=== PATIENT | male | born 1945 | race Caucasian/White ===

== ENCOUNTER 2020-07-10 15:52 | Inpatient (IN) ==
--- NOTE | 2020-07-10 16:21 | DR.FEVERAD ---
HPI Time seen Time Seen by Provider: 07/10/20 16:18 PCP Primary Care Physician: BREANA HAIR HPI Comment HPI Comment: PATIENT HAVE HISTORY OF ANEMIA AND IS ON IRON SUPPLEMENT WITH LAST HEMOGLOBBIN RUNNING AT 10. DENIES MELENA OR HEMATEMESIS. Complaints/Symptoms Chief Complaint Doctor Comments: PROGRESSIVE INTERMITTENT FEVER TIMES ONE WEEK. NOW WITH GENERALIZED WEAKNESS AND IMBALANCE. PATIENT IS PALE AND DIZZY. PATIENT IS HAVING GENERALIZED PAIN AND ABDOMINAL PAIN. PATIENT SAID GENERALIZED AND ABD ACHING IS 8/10. Chief Complaint:: PT C/O FEVER( COMING AND GOING FOR MONTHS ) 103.6 PTS FAMILY STATES FEVER WAS 101.1 AND IT HAS INCREASED TO 10.3.6.. N/V WEAKNESS AND UNSTEADY ,BR Self Treatment fo Chief Complaint: PTS STATES " HE LOOKS PALE ",BR COVID-19 Coronavirus risk:travel/contact w/high risk person: No Has patient experienced Coronavirus symptoms: No Nurses notes reviewed Nurses Notes Review: Yes Source History Provided: Patient Mode of Arrival Mode of Arrival: Ambulatory Timing Onset of Chief Complaint: 07/09/20 Came on: Gradually Duration Duration: Intermittent Duration: Weeks Severity Fever Severity/Quality: greater than 102 F Context Recent: None Symptoms: Fever History of: None Modifying factors Modifying factors: Tylenol Associated signs and symptoms Associated signs and symptoms: Weakness PMH PMH Past Medical History: Yes Past Medical History: Arthritis, Dyslipidemia, Gout and Hypertension Past Surgical History: Yes Surgical History: Angioplasty/Stents Past Surgical History Comment: KNEE SURGERY , JAW SURGERY BR Family History History of Family Medical Conditions: Yes Family Medical History: Diabetes Mellitus and Hypertension Social History Does patient currently use any type of tobacco product: No Have you used tobacco products in the last 12 months: No Type of Tobacco Use: None Does any household member use tobacco: No Alcohol Use: None Do you use any recreational Drugs:: No Lives With: Family Lives Where: Home Travel Risk Coronavirus risk:travel/contact w/high risk person: No Has patient experienced Coronavirus symptoms: No Infectious screening In the last 2 months have you had wt loss of >10#?: NO Have you had fever, night sweats or hemotysis?: No Have you traveled outside the country in the last 6 months?: No Isolation: Standard ROS Review of Systems Constitutional: See HPI, Fever, Weakness and Fatigue Eyes: No Symptoms Reported and See HPI ENTM: No Symptoms Reported and See HPI; negative Nose Discharge and Nose Congestion Respiratoy: No Symptoms Reported, See HPI and Short of Breath (ON EXERTION.); negative Moist Cough and Wheezing Cardiovascular: No Symptoms Reported and See HPI; negative Chest Pain and Palpitations Gastrointestinal/Abdominal: See HPI, Abdominal Pain, Diarrhea and Nausea Genitourinary: No Symptoms Reported and See HPI; negative Dysuria, Frequency and Hematuria Neurological: See HPI and Weakness; negative Headache and Dizziness Musculoskeletal: See HPI and Muscle Pain; negative Back Pain Integumentary: See HPI and Dryness; negative Change in Color, Rash and Juandice Hematologic/Lymphatic: No Symptoms Reported and See HPI; negative Easy Bruising and Swollen Glands Endocrine: No Symptoms Reported and See HPI; negative Increased Thirst and Increased Urine Psychiatric: No Symptoms Reported and See HPI All Other Systems: Reviewed and Negative PE Vital Signs Vitals: Temperature 98.9 F Pulse Rate [Left] 86 Pulse Rate 86 Respiratory Rate 20 Blood Pressure [Left Arm] 145/67 Blood Pressure 136/63 O2 Sat by Pulse Oximetry 96 General Limitations: No Limitations General Appearance: Alert and In No Apparent Distress Head Head Exam: Normal Inspection and Atraumatic Eyes Eye exam: Normal Appearance, PERRL and Conjunctival Injection; negative Scleral Icterus ENT ENT Exam: Normal Exam, Normal Oropharynx, Normal External Ear Exam and TM's Normal Bilaterally External Ear Exam: Normal External Inspection; negative Mastoid Tenderness TM/Canal Exam: Bilateral: Normal Nose Exam: Normal Nose Exam Mouth Exam: negative Lip Swelling and Tongue Swelling Teeth Exam: Normal Inspection and Dental Caries; negative Dental Tenderness # and Gingival Swelling Throat Exam: negative Tonsillar Erythema, Tonsillomegaly and Tonsillar Exudate Neck Neck Exam: Normal Inspection and Trachea Midline; negative Tenderness and Lymphadenopathy Respiratory Respiratory Exam: Normal Lung Sounds Bilat; negative Accessory Muscle Use, Chest Wall Tenderness and Respiratory Distress Respiratory Exam: Bilateral: Rhonchi and Lower: Rhonchi Cardiovascular Cardiovascular Exam: Regular Rate, Normal Rhythm and Normal Heart Sounds; negative Systolic Murmur and Diastolic Murmur Abdominal Exam Abdominal Exam: Normal Bowel Sounds, Soft and Tenderness Abdominal Tenderness: Diffuse and Moderate Extremities Extremities Exam: Normal Inspection and Normal Capillary Refill; negative Tenderness, Edema and Calf Tenderness Back Back Exam: Normal Inspection; negative Tenderness, (R) CVA Tenderness and (L) CVA Tenderness Neurologic Neurological Exam: Alert and Oriented X3; negative Motor Sensory Deficit Psychiatric Psychiatric Exam: Normal Affect and Normal Mood Skin Skin Exam: Warm, Dry, Intact and Normal Color MDM Differential Diagnosis Differential Diagnosis: Dehydration (GENERALIZED WEAKNESS, ANEMIA.), Electrolyte disorder, Pneumonia, Pyelonephritis and UTI COURSE Treatment Treatment: SEE ORDERS. Consultation Consultation Comments: DISCUSSED PATIENT WITH DR. WEBB. HE WILL ADMIT PATIENT. Education/Counseling Education/Counseling: Patient Educated On: Diagnosis ROR Labs Reviewed Laboratory Results Reviewed?: Yes Result Diagrams: 07/14/20 09:10 07/14/20 09:10 Laboratory: 07/11/20 18:30 Stool Stool Culture - Final 07/11/20 18:30 Stool - Final 07/11/20 17:05 Urine,Clean Catch Urine Culture - Final 07/10/20 17:18 Blood Blood Culture - Preliminary 07/10/20 17:05 Blood Blood Culture - Preliminary WBC 3.2 X10^3/uL (3.6-10.0) L 07/12/20 05:35 RBC 2.20 X10^6/uL (4.7-6.0) L 07/12/20 05:35 Hgb 7.6 g/dL (13.5-18.0) L 07/12/20 05:35 Hct 21.7 % (42.0-54.0) L 07/12/20 05:35 MCV 98.3 fL (80.0-100.0) 07/12/20 05:35 MCH 34.5 pg (27.0-34.0) H 07/12/20 05:35 MCHC 35.1 g/dL (33.0-35.0) H 07/12/20 05:35 RDW 14.9 % (11.6-16.5) 07/12/20 05:35 Plt Count 68 X10^3/uL (150.0-450.0) L 07/12/20 05:35 Plt Count Comment Decreased (ADEQUATE) 07/12/20 05:35 MPV 7.4 fL (7.4-11.0) 07/12/20 05:35 Neut % (Auto) 54.4 % (42.0-75.0) 07/12/20 05:35 Lymph % (Auto) 19.2 % (21.0-51.0) L 07/12/20 05:35 Gregg % (Auto) 23.6 % (0.0-13.0) H 07/12/20 05:35 Eos % (Auto) 0.6 % (0.9-2.9) L 07/12/20 05:35 Baso % (Auto) 2.2 % (0.2-1.0) H 07/12/20 05:35 Neut # (Auto) 1.8 x10^3/uL (2.2-4.8) L 07/12/20 05:35 Lymph # (Auto) 0.6 X10^3/uL (1.3-2.9) L 07/12/20 05:35 Gregg # (Auto) 0.8 x10^3/uL (0.3-0.8) 07/12/20 05:35 Eos # (Auto) 0.0 x10^3/uL (0.0-0.2) 07/12/20 05:35 Baso # (Auto) 0.1 X10^3/uL (0.0-0.1) 07/12/20 05:35 Absolute Nucleated RBC 0.2 /100WBC 07/12/20 05:35 Total Counted 100 07/12/20 05:35 Neutrophils % (Manual) 56 % (39-76) 07/12/20 05:35 Band Neutrophils % 5 % (0-10) 07/12/20 05:35 Lymphocytes % (Manual) 24 % (13-43) 07/12/20 05:35 Monocytes % (Manual) 15 % (4-9) H 07/12/20 05:35 Plt Morphology Comment Normal (NORMAL) 07/12/20 05:35 RBC Morphology Normal (NORMAL) 07/12/20 05:35 ESR 45 MM/HOUR (0-15) H 07/11/20 13:54 PT 16.2 SECONDS (11.8-14.3) 07/11/20 13:54 INR Target Range - 07/11/20 13:54 INR 1.37 (0.8-1.3) H 07/11/20 13:54 Sodium 134 mmol/L (136-145) L 07/12/20 05:35 Corrected Sodium 134 mmol/L (136-145) L 07/12/20 05:35 Potassium 3.6 mmol/L (3.5-5.1) 07/12/20 05:35 Chloride 100 mmol/L (98-107) 07/12/20 05:35 Carbon Dioxide 25.6 mmol/L (21-32) 07/12/20 05:35 BUN 17 mg/dL (7-18) 07/12/20 05:35 Creatinine 1.22 mg/dL (0.70-1.30) 07/12/20 05:35 Est GFR (MDRD) Af Amer > 60 (>60) 07/12/20 05:35 Est GFR (MDRD) Non-Af > 60 (>60) 07/12/20 05:35 Glucose 114 mg/dL (65-99) H 07/12/20 05:35 Hemoglobin A1c 7.9 % 07/11/20 04:09 Lactic Acid 1.8 mmol/L (0.4-2.0) 07/10/20 17:18 Calcium 8.1 mg/dL (8.5-10.1) L 07/12/20 05:35 Corrected Calcium 9.7 mg/dL (8.5-10.1) 07/12/20 05:35 Iron 20 ug/dL (50-175) L 07/10/20 17:05 Transferrin 127 mg/dL (202-364) L 07/10/20 17:05 Ferritin 2490 ng/mL (26-388) H 07/10/20 17:05 Total Bilirubin 0.50 mg/dL (0.2-1.0) 07/12/20 05:35 AST 41 Units/L (15-37) H 07/12/20 05:35 ALT 44 Units/L (12-78) 07/12/20 05:35 Alkaline Phosphatase 58 Units/L (46-116) 07/12/20 05:35 C-Reactive Protein 167.00 mg/L (0-3.0) H 07/11/20 13:54 Total Protein 6.3 g/dL (6.4-8.2) L 07/12/20 05:35 Albumin 2.0 g/dL (3.4-5.0) L 07/12/20 05:35 Globulin 4.3 g/dL (2.5-4.5) 07/12/20 05:35 Albumin/Globulin Ratio 0.5 Ratio (1.1-2.1) L 07/12/20 05:35 Amylase 31 Units/L (25-115) 07/11/20 04:09 Lipase 95 Units/L (73-393) 07/11/20 04:09 Total PSA 4.07 ng/mL (0.13-4.0) H 07/11/20 04:09 Vitamin B12 687 pg/mL (193-986) 07/10/20 17:05 Folate > 20.0 ng/mL (>8.6) 07/10/20 17:05 Specimen Type Clean catch urine 07/10/20 18:09 Urine Color Yellow (YELLOW) 07/10/20 18:09 Urine Appearance Slightly hazy (CLEAR) 07/10/20 18:09 Urine pH 5.0 (5.0 - 8.0) 07/10/20 18:09 Ur Specific Goldsmith 1.015 (1.000-1.030) 07/10/20 18:09 Urine Protein 3+ (NEGATIVE) 07/10/20 18:09 Urine Glucose (UA) Negative (NEGATIVE) 07/10/20 18:09 Urine Ketones Negative (NEGATIVE) 07/10/20 18:09 Urine Occult Blood 5+ (NEGATIVE) 07/10/20 18:09 Urine Nitrite Negative (NEGATIVE) 07/10/20 18:09 Urine Bilirubin Negative (NEGATIVE) 07/10/20 18:09 Urine Urobilinogen 2+ (NORMAL) 07/10/20 18:09 Ur Leukocyte Esterase 1+ (NEGATIVE) 07/10/20 18:09 Urine RBC 5-10 /HPF (0-3) A 07/10/20 18:09 Urine WBC 0-2 /HPF (0-5) 07/10/20 18:09 Ur Squamous Epith Cells Few /HPF (NEGATIVE) 07/10/20 18:09 Amorphous Sediment 1+ /HPF (NEGATIVE) 07/10/20 18:09 Urine Bacteria 1+ /HPF (NEGATIVE) 07/10/20 18:09 Hyaline Casts Few /LPF (NEGATIVE) 07/10/20 18:09 Coarse Granular Casts Moderate /HPF (NEGATIVE) 07/10/20 18:09 Urine Mucus Moderate /HPF (NEGATIVE) 07/10/20 18:09 Ur Culture Indicated? No/not indicated 07/10/20 18:09 Stool Description 150 grs brown soft 07/11/20 18:30 Stool Description 150 grs. mcdonald 07/11/20 18:30 Stl Occult Blood (IFOB) Negative (NEGATIVE) 07/11/20 18:30 Stool for White Cells Negative (NEGATIVE) 07/11/20 18:30 Stl C. diff Tox B Gene Negative (NEGATIVE) 07/11/20 18:30 Stl C. diff [id number]-[id number] Negative (NEGATIVE) 07/11/20 18:30 Stool H. pylori Ag Negative (NEGATIVE) 07/11/20 18:30 Cryptosporid parvum Ag Negative (NEGATIVE) 07/11/20 18:30 Giardia lamblia Ag Negative (NEGATIVE) 07/11/20 18:30 SARS CoV-2 RNA Rapid MARYCRUZ Negative (NEGATIVE) 07/10/20 17:12 XRAY XRAY Interpreted by: Radiologist (REPORT NOTED AND DISCUSSED WITH PATIENT.) and Self Opioid Opioid Risk Tool Age (Phani box if 16-45): No History of Preadolescent Sexual Abuse: No Total: 0 Total Score Risk Category: Low Risk Copyright: Tha CRUZ predicting aberrant behaviors Diagnosis Discharge Problem: Generalized weakness Fever Qualifiers: Fever type: unspecified Qualified Code(s): R50.9 - Fever, unspecified Anemia Qualifiers: Anemia type: unspecified type Qualified Code(s): D64.9 - Anemia, unspecified Diarrhea Qualifiers: Diarrhea type: unspecified type Qualified Code(s): R19.7 - Diarrhea, uns pecified Abdominal pain Qualifiers: Abdominal location: generalized Qualified Code(s): R10.84 - Generalized abdominal pain Instructions Instructions: Tips for Eating Away From Home If You Have Diabetes Anemia Hypertension, [id number] Community-Acquired Pneumonia, Adult, [id number] Diabetes Mellitus and Nutrition Forms: Excuse From Work or School Precautions for COVID19 Patient Portal Social Distancing
--- NOTE | 2020-07-10 17:25 | RAD ---
PROCEDURE: Acute Abdomen Series .HISTORY: fever, diarrhea .TECHNIQUE: AP supine and upright abdomen with AP chest x-ray views .COMPARISON: None .TECHNICAL QUALITY: Satisfactory .FINDINGS:Normal cardio mediastinal silhouette.Normal central vascularity.Some linear scar versus discoid atelectasis left lung base. No pulmonary consolidation, masses, pleural fluid, or pneumothorax. Mildly elevated left hemidiaphragm.No pneumoperitoneum.Mild gas and feces in the colon without distention. Nondistended small bowel gas left abdomen. No obstruction or ileus.No organomegaly.No abnormal calcifications.No acute bony abnormality.IMPRESSION:1. Mildly elevated left hemidiaphragm with some adjacent linear scar versus discoid atelectasis.2. No other active cardiopulmonary disease.3. Nonspecific bowel-gas pattern.Electronically signed by: Oumar Penn (July 10, 2020 17:23:51)
[2020-07-10 17:28] LABS: EOSINOPHILS % (AUTO) 0.6 % (0.9-2.9); HEMATOCRIT 25.5 % (42.0-54.0); HEMOGLOBIN 8.6 g/dL (13.5-18.0); LYMPHOCYTES # (AUTO) 0.3 X10^3/uL (1.3-2.9); LYMPHOCYTES % (AUTO) 9.5 % (21.0-51.0); MEAN CORPUSCULAR HEMOGLOBIN 33.9 pg (27.0-34.0); MEAN CORPUSCULAR HGB CONC 33.6 g/dL (33.0-35.0); MEAN CORPUSCULAR VOLUME 100.8 fL (80.0-100.0); MEAN PLATELET VOLUME 6.5 fL (7.4-11.0); MONOCYTES # (AUTO) 0.3 x10^3/uL (0.3-0.8); NEUTROPHILS % (AUTO) 80.9 % (42.0-75.0); PLATELET COUNT 95 X10^3/uL (150.0-450.0); RED BLOOD COUNT 2.53 X10^6/uL (4.7-6.0); RED CELL DISTRIBUTION WIDTH 14.6 % (11.6-16.5); WHITE BLOOD COUNT 3.7 X10^3/uL (3.6-10.0)
[2020-07-10 17:42] LABS: ALANINE AMINOTRANSFERASE 41 Units/L (12-78); ALBUMIN 2.5 g/dL (3.4-5.0); ALKALINE PHOSPHATASE 65 Units/L (46-116); ASPARTATE AMINO TRANSFERASE 48 Units/L (15-37); BLOOD UREA NITROGEN 21 mg/dL (7-18); CHLORIDE 98 mmol/L (98-107); COR CA(FOR HYPOALB) 9.2 mg/dL (8.5-10.1); COR NA(FOR HYPERGLY) 136 mmol/L (136-145); CREATININE 1.35 mg/dL (0.70-1.30); SODIUM 134 mmol/L (136-145); TOTAL PROTEIN 7.1 g/dL (6.4-8.2); eGFR NON BLACK RACES 55 (>60)
[2020-07-10 17:45] LABS: LACTIC ACID 1.8 mmol/L (0.4-2.0)
[2020-07-10 18:17] LABS: BILIRUBIN,URINE NEGATIVE (NEGATIVE); BLOOD/HEMOGLOBIN,URINE 5+ (NEGATIVE); GLUCOSE, URINE NEGATIVE (NEGATIVE); KETONES,URINE NEGATIVE (NEGATIVE); LEUKOCYTE ESTERASE ,URINE 1+ (NEGATIVE); NITRITES,URINE NEGATIVE (NEGATIVE); PROTEIN,URINE 3+ (NEGATIVE); UROBILINOGEN,URINE 2+ (NORMAL)
[2020-07-10 18:22] LABS: COLOR,URINE YELLOW (YELLOW)
[2020-07-10 18:23] LABS: APPEARANCE,URINE SLIGHTLY HAZY (CLEAR)
[2020-07-10 18:30] LABS: AMORPHOUS SEDIMENT,UR 1+ /HPF (NEGATIVE); BACTERIA,URINE 1+ /HPF (NEGATIVE); COARSE GRANULAR CASTS,URINE MODERATE /HPF (NEGATIVE); HYALINE CASTS, URINE FEW /LPF (NEGATIVE); SQUAMOUS EPITHELIAL CELL,UR FEW /HPF (NEGATIVE)
[2020-07-10 18:31] LABS: MUCUS,URINE MODERATE /HPF (NEGATIVE)
--- NOTE | 2020-07-10 19:05 | CT ---
EXAM: CT ABDOMEN AND PELVIS WITHOUT INTRAVENOUS CONTRASTHISTORY: Pain. Hematuria.TECHNIQUE: Spiral axial CT images are obtained through the abdomen and pelvis without the administration of intravenous contrast. Additional coronal and sagittal reformatted images are reconstructed.DOSIMETRY: Total DLP 1056.8 mGycm; CTDI 18.3 mGyCOMPARISON: None available.FINDINGS:GASTROINTESTINAL TRACT: There is no evidence for bowel herniation, bowel obstruction, colitis or diverticulitis. A normal-appearing appendix is seen.GENITOURINARY SYSTEM: There is an approximately 2.2 cm exophytic left lower pole renal cyst. The kidneys are otherwise unremarkable. Nonspecific mild bilateral perinephric streaky changes, of uncertain etiology and clinical significance. Consider follow-up postcontrast CT to rule out pyelonephritis if UTI is clinically suspected. There is no ureteral calculus or stigmata of obstructive uropathy. The urinary bladder is grossly unremarkable for a non-dedicated exam. There is prostatomegaly (5.2 cm CC by 4.8 cm AP by 4.5 cm transverse) in keeping with BPH; concomitant occult neoplastic disease not excluded.CT ABDOMEN: Elongation of the right lobe of the liver (up to 24.6 cm CC) in keeping with hepatomegaly versus Christiane's lobe (anatomical variant). Severe aortoiliac atherosclerotic disease, without aneurysm formation. The spleen, pancreas, adrenal glands, gallbladder, and inferior vena cava are within normal limits for a noncontrast CT scan. There is no intra-abdominal or retroperitoneal lymphadenopathy, free fluid, or free air seen. No abdominal herniation is noted.CT PELVIS: The visualized bony structures are within normal limits. No pelvic sidewall or inguinal lymphadenopathy is seen. No inguinal herniation is noted. No free fluid or free air is seen.LUNG BASES: There is mild streaky left basilar atelectasis. The lung bases are otherwise clear. There is severe coronary atherosclerosis.IMPRESSION:1. Nonspecific mild bilateral perinephric streaky changes, of uncertain etiology and clinical significance. Consider follow-up postcontrast CT to rule out pyelonephritis if UTI is clinically suspected.2. No evidence for renal stone disease or obstructive uropathy.3. Prostatomegaly (5.2 cm CC by 4.8 cm AP by 4.5 cm transverse) in keeping with BPH; concomitant occult neoplastic disease not excluded.4. Elongation of the right lobe of the liver (up to 24.6 cm CC) in keeping with hepatomegaly versus Christiane's lobe (anatomical variant).5. No evidence for acute appendicitis, bowel herniation/obstruction, colitis or diverticulitis seen.6. No free fluid, free air, mass lesions, or lymphadenopathy seen.Electronically signed by: Evette Reece (July 10, 2020 19:03:22)
[2020-07-10] MEDS ORDERED: ZOFRAN INJ 4 MG VIAL IVP PRN (19:59)
[2020-07-10] MEDS ORDERED: DICLOFENAC SODIUM 50 MG PO PRN (20:26)
[2020-07-10 20:52] LABS: IRON 20 ug/dL (50-175)
[2020-07-10] MEDS: TYLENOL 325 MG TAB PO PRN (21:45)
[2020-07-10] MEDS: NS 1000 ML 1,000 ML IV SCH (22:11)
[2020-07-10] MEDS: LIPITOR TAB 20 MG PO SCH (22:12)
[2020-07-10] MEDS: TUMS PO SCH (22:12)
[2020-07-10] MEDS: PROTONIX INJ 40 MG VIAL 80 MG in NS 100 ML IV 80 ML IV SCH (22:12)
[2020-07-10 23:12] VITALS: BMI 29.2
[2020-07-11] MEDS: TYLENOL 325 MG TAB PO PRN ×4 (04:06→23:44)
[2020-07-11 05:33] LABS: BASOPHILS # (AUTO) 0.1 X10^3/uL (0.0-0.1); BASOPHILS % (AUTO) 2.7 % (0.2-1.0); EOSINOPHILS % (AUTO) 0.6 % (0.9-2.9); HEMATOCRIT 27.4 % (42.0-54.0); HEMOGLOBIN 9.2 g/dL (13.5-18.0); LYMPHOCYTES # (AUTO) 0.5 X10^3/uL (1.3-2.9); LYMPHOCYTES % (AUTO) 17.3 % (21.0-51.0); MEAN CORPUSCULAR HEMOGLOBIN 33.6 pg (27.0-34.0); MEAN CORPUSCULAR HGB CONC 33.4 g/dL (33.0-35.0); MEAN CORPUSCULAR VOLUME 100.6 fL (80.0-100.0); MEAN PLATELET VOLUME 7.6 fL (7.4-11.0); MONOCYTES # (AUTO) 0.3 x10^3/uL (0.3-0.8); MONOCYTES % (AUTO) 11.6 % (0.0-13.0); NEUTROPHILS % (AUTO) 67.8 % (42.0-75.0); PLATELET COUNT 90 X10^3/uL (150.0-450.0); RED BLOOD COUNT 2.72 X10^6/uL (4.7-6.0); RED CELL DISTRIBUTION WIDTH 14.6 % (11.6-16.5); WHITE BLOOD COUNT 2.9 X10^3/uL (3.6-10.0)
[2020-07-11] MEDS: NS 1000 ML 1,000 ML IV SCH ×4 (05:35→20:59)
[2020-07-11 05:39] LABS: ALANINE AMINOTRANSFERASE 48 Units/L (12-78); ALBUMIN 2.6 g/dL (3.4-5.0); ALKALINE PHOSPHATASE 66 Units/L (46-116); AMYLASE 31 Units/L (25-115); ASPARTATE AMINO TRANSFERASE 44 Units/L (15-37); BLOOD UREA NITROGEN 18 mg/dL (7-18); CALCIUM 8.4 mg/dL (8.5-10.1); CARBON DIOXIDE 29.1 mmol/L (21-32); CHLORIDE 97 mmol/L (98-107); COR CA(FOR HYPOALB) 9.5 mg/dL (8.5-10.1); COR NA(FOR HYPERGLY) 133 mmol/L (136-145); CREATININE 1.22 mg/dL (0.70-1.30); LIPASE 95 Units/L (73-393); SODIUM 133 mmol/L (136-145); TOTAL PROTEIN 7.5 g/dL (6.4-8.2); eGFR NON BLACK RACES > 60 (>60)
[2020-07-11] MEDS: PROTONIX INJ 40 MG VIAL 80 MG in NS 100 ML IV 80 ML IV SCH ×3 (05:42→16:55)
[2020-07-11 05:57] LABS: BAND NEUTROPHILS % 16 % (0-10); PLATELET MORPHOLOGY COMMENT NORMAL (NORMAL)
[2020-07-11] MEDS: BENICAR TAB 40 MG PO SCH (08:55)
[2020-07-11] MEDS: PROCARDIA (PLAIN) CAP 10 MG PO SCH (08:55)
[2020-07-11] MEDS: TUMS PO SCH ×2 (08:55→20:53)
[2020-07-11] MEDS: HYDROCHLOROTHIAZIDE 25 MG TAB PO SCH (08:55)
[2020-07-11] MEDS ORDERED: OLMESARTAN HYDROCHLOROTHIAZIDE PO SCH (09:00)
[2020-07-11] MEDS: ZOSYN VIAL 3.375 GRAMS 3.375 G in NS 100 ML IV + SPIKE MINIBAG* 100 ML IV SCH ×3 (10:40→21:01)
--- NOTE | 2020-07-11 13:34 | DR.H&P ---
H&P - History & Physical for Day of: H&P Date: 07/10/20 - Chief Complaint Chief Complaint: FEVER, N/V/D, FATIGUE - History of Present Illness History of Present Illness: PT REPORTS HIGH FEVER WITH WEAKNESS AND N/V/D. PT REPORTS HE HAS BEEN FEELING FATIGUED WITH FEVERS ON AND OFF FOR SEVERAL MONTHS. PT REPORTS PMH OF HTN AND STENT PLACEMENT X 1. PT DENIES ANY CHEST PAIN OR SOB. PT DENIES ANY KNOWN COVID EXPOSURE. - Past Medical History Past Medical History: Hypertension, Dyslipidemia, Arthritis, Gout - Past Surgical History Surgical History: Angioplasty/Stents, Other - Family History Family Medical History: Diabetes Mellitus, Hypertension - Social History Does patient currently use any type of tobacco product: No Have you used tobacco products in the last 12 months: No Type of Tobacco Use: None Does any household member use tobacco: No Alcohol Use: None Drug Use: None - Medications Home Medications: CLAUS Inhibitors Allergy (Verified 07/10/20 16:00) CONTINUE taking the following medications aspirin 81 mg PO DAILY 07/10/20 [History] atorvastatin 20 mg PO HS 07/10/20 [History] calcium carbonate [Antacid (calcium carbonate)] 500 mg PO BID 07/10/20 [History] diclofenac sodium [Voltaren] 50 mg PO BID PRN 07/10/20 [History] nifedipine 10 mg PO DAILY 07/10/20 [History] olmesartan-hydrochlorothiazide [Benicar HCT] 1 tab PO DAILY 07/10/20 [History] - Review of Systems Constitutional: Fever, Weakness, Malaise Eyes: No Symptoms Reported ENT: No Symptoms Reported Respiratory: No Symptoms Reported Cardiovascular: No Symptoms Reported Gastrointestinal: Nausea, Vomiting, Diarrhea, Constipation Genitourinary: Frequency Musculoskeletal: No Symptoms Reported Skin: No Symptoms Reported Neurological: No Symptoms Reported - Physical Exam Vital Signs: Temperature 98.8 F Pulse Rate [Left] 70 Pulse Rate 86 Respiratory Rate 20 Blood Pressure [Left Arm] 133/52 Blood Pressure 136/63 O2 Sat by Pulse Oximetry 96 Oriented: Normal Eyes: Normal Ear: Normal Nose: Normal Throat: Normal Respiratory: RLL Diminished, LLL Diminished Cardiovascular: Normal : Normal Palpation: Normal Tenderness: Epigastric, Mild Skin: Decreased Turgur Musculoskeletal: Normal Psychiatric: Normal Mood Description: Calm Speech Pattern: Clear, Appropriate - Assessment/Plan (1) Acute pyelonephritis Status: Acute Plan: ADMIT, BLOOD AND URINE CULTURE OBTAINED ON ADMISSION. IV HYDRATION, STOOL STUDIES. STRICT I&OS, VERIFY HOME MEDICATION. ANEMIA PANEL, CT ABD PELVIS IN ER ON ADMISSION. IV ATBX THERAPY, AM LABS (2) Anemia Status: Acute (3) Acute gastroenteritis Status: Acute (4) Hypertension Status: Acute (5) CAD (coronary artery disease) Status: Acute - Allergies Allergies/Adverse Reactions: Allergies Allergy/AdvReac Type Severity Reaction Status Date / Time CLAUS Inhibitors Allergy Verified 07/10/20 16:00
[2020-07-11] MEDS ORDERED: NS 100 ML IV 100 ML with VENOFER 400 MG IV NR ×2 (14:00)
[2020-07-11] MEDS: LIPITOR TAB 20 MG PO SCH (20:53)
[2020-07-12] MEDS: NS 1000 ML 1,000 ML IV SCH ×3 (03:43→20:58)
[2020-07-12] MEDS: PROTONIX INJ 40 MG VIAL 80 MG in NS 100 ML IV 80 ML IV SCH ×3 (03:45→21:07)
--- NOTE | 2020-07-12 06:09 | RAD ---
HISTORYFEVER, FATIGUESTUDYCHEST, 1 VIEWCOMPARISONAcute abdomen series from 07/10/2020.TECHNIQUEAP view of the chestFINDINGSThe cardiac silhouette is mildly enlarged. There is mild patchy left base opacity, similar to prior radiograph. No discernible pleural effusion or pneumothorax. Soft tissue attenuation limits evaluation.IMPRESSIONMild patchy left base opacity may represent atelectasis or pneumonia.Electronically signed by: Lonny Price (July 12, 2020 06:07:32)
[2020-07-12 06:29] LABS: BASOPHILS # (AUTO) 0.1 X10^3/uL (0.0-0.1); BASOPHILS % (AUTO) 2.2 % (0.2-1.0); EOSINOPHILS % (AUTO) 0.6 % (0.9-2.9); HEMATOCRIT 21.7 % (42.0-54.0); HEMOGLOBIN 7.6 g/dL (13.5-18.0); LYMPHOCYTES # (AUTO) 0.6 X10^3/uL (1.3-2.9); LYMPHOCYTES % (AUTO) 19.2 % (21.0-51.0); MEAN CORPUSCULAR HEMOGLOBIN 34.5 pg (27.0-34.0); MEAN CORPUSCULAR HGB CONC 35.1 g/dL (33.0-35.0); MEAN CORPUSCULAR VOLUME 98.3 fL (80.0-100.0); MEAN PLATELET VOLUME 7.4 fL (7.4-11.0); MONOCYTES # (AUTO) 0.8 x10^3/uL (0.3-0.8); MONOCYTES % (AUTO) 23.6 % (0.0-13.0); NEUTROPHILS # (AUTO) 1.8 x10^3/uL (2.2-4.8); NEUTROPHILS % (AUTO) 54.4 % (42.0-75.0); PLATELET COUNT 68 X10^3/uL (150.0-450.0); RED CELL DISTRIBUTION WIDTH 14.9 % (11.6-16.5); WHITE BLOOD COUNT 3.2 X10^3/uL (3.6-10.0)
[2020-07-12 06:47] LABS: ALANINE AMINOTRANSFERASE 44 Units/L (12-78); ALKALINE PHOSPHATASE 58 Units/L (46-116); ASPARTATE AMINO TRANSFERASE 41 Units/L (15-37); BLOOD UREA NITROGEN 17 mg/dL (7-18); CALCIUM 8.1 mg/dL (8.5-10.1); CARBON DIOXIDE 25.6 mmol/L (21-32); CHLORIDE 100 mmol/L (98-107); COR CA(FOR HYPOALB) 9.7 mg/dL (8.5-10.1); COR NA(FOR HYPERGLY) 134 mmol/L (136-145); CREATININE 1.22 mg/dL (0.70-1.30); SODIUM 134 mmol/L (136-145); TOTAL PROTEIN 6.3 g/dL (6.4-8.2); eGFR NON BLACK RACES > 60 (>60)
[2020-07-12 07:14] LABS: BAND NEUTROPHILS % 5 % (0-10); PLATELET MORPHOLOGY COMMENT NORMAL (NORMAL)
[2020-07-12] MEDS: ZOSYN VIAL 3.375 GRAMS 3.375 G in NS 100 ML IV + SPIKE MINIBAG* 100 ML IV SCH ×2 (08:51→13:50)
[2020-07-12] MEDS: PROCARDIA (PLAIN) CAP 10 MG PO SCH (08:55)
[2020-07-12] MEDS: BENICAR TAB 40 MG PO SCH (08:55)
[2020-07-12] MEDS: TUMS PO SCH ×2 (08:55→21:00)
[2020-07-12] MEDS: HYDROCHLOROTHIAZIDE 25 MG TAB PO SCH (08:55)
[2020-07-12] MEDS: DUONEB 0.5 MG/3 MG (3 mL) NEB SCH ×4 (09:55→20:41)
[2020-07-12] MEDS ORDERED: DUONEB 0.5 MG/3 MG (3 mL) NEB ONE (09:59)
[2020-07-12] MEDS: LEVAQUIN PREMIX IV 500 MG 500 MG/100 ML BAG IV SCH (10:41)
[2020-07-12] MEDS ORDERED: NS 100 ML IV 100 ML IV ONE (12:12)
--- NOTE | 2020-07-12 13:21 | CT ---
HISTORYABD PAIN / FEVERSTUDYCT abdomen pelvis with IV contrastCOMPARISONCT 07/10/2020TECHNIQUEMultiple axial images of the abdomen and pelvis were obtained from the lung bases to the pubic symphysis after the administration of IV contrast. 100 cc Omnipaque 350 IV contrast and oral contrast are administered. Dose reduction techniques including Automated Exposure Control (AEC) and adjustment of mA and kV were utilized.FINDINGSThe visualized portions of the lung bases suggest new mild interstitial densities which may be mild atelectasis or pulmonary edema. Heart is likely normal in size. There is chronic elevation of the left hemidiaphragm.Hepatosplenomegaly is unchanged.Gallbladder appears normal. No biliary ductal dilation.No pancreatic abnormality is seen.The adrenal glands appear normal.Persistent perinephric streaky densities are seen that are probably from poor renal function. Renal labs should be monitored following this contrast enhanced exam. There is a probable exophytic simple cyst associated with the lower pole of the left kidney measuring 1.8 cm in diameter, unchanged. Normal enhancement is seen of the renal parenchyma. No hydronephrosis or nephrolithiasis. Multiple phleboliths are seen in the pelvis. Ureters and bladder appear normal.Mild colonic diverticula are seen without evidence of diverticulitis. No suggestion of constipation or colitis. No small bowel dilation. Stomach is decompressed at time of imaging. Normal appendix is seen.There is mild prostatomegaly. Prostate gland measures 5.0 x 5.6 x 4.1 cm. There is likely mild mass effect upon the base of the urinary bladder.Abdominal aorta is normal in size.Small retroperitoneal lymph nodes are seen, similar to prior study. These are probably reactive. Another small reactive lymph node is suspected in the periportal region.No free intraperitoneal air or fluid is seen.No acute bony abnormality is seen.IMPRESSIONNo suggestion of pyelonephritis or cystitis. Likely 1.8 cm exophytic simple cyst associated with the lower pole of the left kidney.Perinephric streaky edema could be from poor renal function. Renal labs should be monitored following this contrast enhanced study.Mild prostatomegaly is seen.Small likely reactive lymph nodes are seen in the retroperitoneum and periportal region. These are unchanged.Electronically signed by: Warren Oconnell (July 12, 2020 13:19:07)
[2020-07-12] MEDS: TYLENOL 325 MG TAB PO PRN ×2 (13:52→20:59)
--- NOTE | 2020-07-12 14:06 | CT ---
HISTORY: Dyspnea and pneumonia.Study: CT chest with IV contrastComparison: Chest radiograph dated July 12, 2020.Technique:Multiple axial images of the chest were obtained from the thoracic inlet to the upper abdomen following the administration of IV contrast.Findings:The thoracic inlet is unremarkable in appearance. There is scattered aortic and coronary atherosclerosis. The heart is mildly enlarged without a pericardial effusion. Lingular and bibasilar subsegmental atelectasis is noted. [The mediastinum does not demonstrate significant pathological lymphadenopathy.] [There is no paracardial effusion observed]. [The thoracic aorta is normal in its contour without evidence for aneurysmal dilatation.] [The central pulmonary arterial system does not demonstrate central filling defects to suggest pulmonary emboli.]Evaluation of the lung parenchyma [fails to demonstrate focal consolidation or effusion]. [No pulmonary nodule or mass can be identified.] The bony thorax [is unremarkable in its appearance]. The visualized portions of the upper abdomen are grossly unremarkable.IMPRESSION:Bibasilar and lingular atelectasis. Diffuse peribronchial wall thickening, suggesting bronchitis.No lobar infiltrates or pleural effusions are seen. Scattered aortic and vascular atherosclerosis.Shotty but non-pathologically enlarged mediastinal lymph nodes, likely reactive in nature.No other acute cardiopulmonary process is seen on this exam.Electronically signed by: EVANGELINA MATAMOROS III (July 12, 2020 14:04:06)
[2020-07-12] MEDS: BENADRYL CAP/TAB 25 MG PO PRN (16:47)
[2020-07-12] MEDS: SOLU-Medrol 40 MG VIAL IVP SCH ×2 (17:44→21:02)
[2020-07-12 18:34] LABS: RSV AG DETECTION NEGATIVE (NEGATIVE)
[2020-07-12 20:18] LABS: CRYPTOSPORIDIUM PARVUM ANTIGEN NEGATIVE (NEGATIVE); GIARDIA LAMBLIA ANTIGEN NEGATIVE (NEGATIVE)
[2020-07-12] MEDS: LIPITOR TAB 20 MG PO SCH (21:00)
[2020-07-13] MEDS: NS 1000 ML 1,000 ML IV SCH ×5 (01:53→22:19)
[2020-07-13] MEDS: SOLU-Medrol 40 MG VIAL IVP SCH ×3 (05:43→21:11)
[2020-07-13 06:00] LABS: BASOPHILS % (AUTO) 1.5 % (0.2-1.0); EOSINOPHILS % (AUTO) 0.1 % (0.9-2.9); HEMATOCRIT 20.6 % (42.0-54.0); HEMOGLOBIN 7.1 g/dL (13.5-18.0); LYMPHOCYTES # (AUTO) 0.4 X10^3/uL (1.3-2.9); LYMPHOCYTES % (AUTO) 16.6 % (21.0-51.0); MEAN CORPUSCULAR HEMOGLOBIN 34.2 pg (27.0-34.0); MEAN CORPUSCULAR HGB CONC 34.2 g/dL (33.0-35.0); MEAN CORPUSCULAR VOLUME 100.2 fL (80.0-100.0); MEAN PLATELET VOLUME 7.5 fL (7.4-11.0); MONOCYTES # (AUTO) 0.2 x10^3/uL (0.3-0.8); NEUTROPHILS # (AUTO) 1.8 x10^3/uL (2.2-4.8); NEUTROPHILS % (AUTO) 72.8 % (42.0-75.0); PLATELET COUNT 76 X10^3/uL (150.0-450.0); RED BLOOD COUNT 2.06 X10^6/uL (4.7-6.0); RED CELL DISTRIBUTION WIDTH 14.9 % (11.6-16.5); WHITE BLOOD COUNT 2.5 X10^3/uL (3.6-10.0)
[2020-07-13 06:10] LABS: ALBUMIN 2.1 g/dL (3.4-5.0); CALCIUM 8.2 mg/dL (8.5-10.1); CARBON DIOXIDE 23.1 mmol/L (21-32); COR CA(FOR HYPOALB) 9.7 mg/dL (8.5-10.1); CREATININE 1.49 mg/dL (0.70-1.30); TOTAL PROTEIN 6.8 g/dL (6.4-8.2)
[2020-07-13] MEDS: PROTONIX INJ 40 MG VIAL 80 MG in NS 100 ML IV 80 ML IV SCH ×3 (08:19→22:19)
[2020-07-13] MEDS: DUONEB 0.5 MG/3 MG (3 mL) NEB SCH ×4 (09:10→21:03)
[2020-07-13] MEDS: LEVAQUIN PREMIX IV 500 MG 500 MG/100 ML BAG IV SCH (09:23)
[2020-07-13] MEDS: BENICAR TAB 40 MG PO SCH (09:23)
[2020-07-13] MEDS: PROCARDIA (PLAIN) CAP 10 MG PO SCH (09:23)
[2020-07-13] MEDS: TUMS PO SCH ×2 (09:23→20:16)
[2020-07-13] MEDS: HYDROCHLOROTHIAZIDE 25 MG TAB PO SCH (09:23)
[2020-07-13] MEDS: BENADRYL CAP/TAB 25 MG PO PRN ×2 (10:30→22:19)
[2020-07-13 15:49] LABS: HEMATOCRIT 22.2 % (42.0-54.0); HEMOGLOBIN 7.7 g/dL (13.5-18.0)
[2020-07-13] MEDS: LIPITOR TAB 20 MG PO SCH (20:16)
[2020-07-14] MEDS: PROTONIX INJ 40 MG VIAL 80 MG in NS 100 ML IV 80 ML IV SCH ×2 (03:42→13:11)
[2020-07-14] MEDS: SOLU-Medrol 40 MG VIAL IVP SCH ×2 (05:33→13:11)
[2020-07-14] MEDS: NS 1000 ML 1,000 ML IV SCH ×2 (05:52→09:09)
[2020-07-14] MEDS: DUONEB 0.5 MG/3 MG (3 mL) NEB SCH (08:48)
[2020-07-14] MEDS: TUMS PO SCH (09:10)
[2020-07-14] MEDS: BENICAR TAB 40 MG PO SCH (09:10)
[2020-07-14] MEDS: HYDROCHLOROTHIAZIDE 25 MG TAB PO SCH (09:11)
[2020-07-14] MEDS: PROCARDIA (PLAIN) CAP 10 MG PO SCH (09:11)
[2020-07-14] MEDS: LEVAQUIN PREMIX IV 500 MG 500 MG/100 ML BAG IV SCH (09:11)
[2020-07-14 09:47] LABS: BASOPHILS % (AUTO) 0.6 % (0.2-1.0); EOSINOPHILS % (AUTO) 0.1 % (0.9-2.9); HEMATOCRIT 23.4 % (42.0-54.0); LYMPHOCYTES # (AUTO) 0.6 X10^3/uL (1.3-2.9); LYMPHOCYTES % (AUTO) 13.2 % (21.0-51.0); MEAN CORPUSCULAR HEMOGLOBIN 34.3 pg (27.0-34.0); MEAN CORPUSCULAR VOLUME 100.8 fL (80.0-100.0); MEAN PLATELET VOLUME 7.4 fL (7.4-11.0); MONOCYTES # (AUTO) 0.4 x10^3/uL (0.3-0.8); MONOCYTES % (AUTO) 7.6 % (0.0-13.0); NEUTROPHILS # (AUTO) 3.8 x10^3/uL (2.2-4.8); NEUTROPHILS % (AUTO) 78.5 % (42.0-75.0); PLATELET COUNT 110 X10^3/uL (150.0-450.0); RED BLOOD COUNT 2.33 X10^6/uL (4.7-6.0); WHITE BLOOD COUNT 4.8 X10^3/uL (3.6-10.0)
--- NOTE | 2020-07-14 10:00 | RAD ---
HISTORYF/U PNEUMONIASTUDYCHEST, 1 [id number]/11/2021FINDINGSThe trachea is midline. Borderline heart size. There is mild elevation of the left diaphragm with linear atelectasis at the left base. No evidence of pleural effusions or pneumothorax. No dominant alveolar infiltrates.IMPRESSIONLinear atelectasis at the left base with chronic elevation of the left diaphragm. No dominant infiltratesElectronically signed by: Mae Polanco (July 14, 2020 09:58:23)
[2020-07-14 10:04] LABS: BLOOD UREA NITROGEN 26 mg/dL (7-18); CALCIUM 8.9 mg/dL (8.5-10.1); CARBON DIOXIDE 22.9 mmol/L (21-32); CHLORIDE 102 mmol/L (98-107); COR NA(FOR HYPERGLY) 140 mmol/L (136-145); CREATININE 1.37 mg/dL (0.70-1.30); SODIUM 137 mmol/L (136-145); eGFR NON BLACK RACES 54 (>60)
[2020-07-14 10:20] LABS: BAND NEUTROPHILS % 3 % (0-10); BASOPHILS % (MANUAL) 1 % (0-1); METAMYELOCYTES % 1; PLATELET MORPHOLOGY COMMENT NORMAL (NORMAL)
[2020-07-14 10:23] LABS: ALANINE AMINOTRANSFERASE 94 Units/L (12-78); ALBUMIN 2.4 g/dL (3.4-5.0); ALKALINE PHOSPHATASE 81 Units/L (46-116); ASPARTATE AMINO TRANSFERASE 60 Units/L (15-37); COR CA(FOR HYPOALB) 10.2 mg/dL (8.5-10.1); TOTAL PROTEIN 7.1 g/dL (6.4-8.2)
[2020-07-14 12:13] VITALS: BP 162/71
[2020-07-15 06:12] LABS: ANTI-NUCLEAR ANTIBODY TEST None Detected (None Detected); CMV IGM ANTIBODY <8.0 AU/mL (<=29.9); EPSTEIN-BARR VCA IGG >750.0 U/mL (0.0-21.9); EPSTEIN-BARR VCA IGM 14.2 U/mL (0.0-43.9)
== END 2020-07-14 15:10 | disposition home or self-care (01) | DRG 194 ==
LOC: ER 15:57 → MED/SURG 15:57
PROVIDERS: ADMIT Internal Medicine; ATTEND Internal Medicine
DX: E87.1 Hypo-osmolality and hyponatremia; R79.1 Abnormal coagulation profile; D50.8 Other iron deficiency anemias; R50.9 Fever, unspecified; R79.89 Other specified abnormal findings of blood chemistry; R79.82 Elevated C-reactive protein (CRP); I25.10 Atherosclerotic heart disease of native coronary artery without angina pectoris; E86.0 Dehydration; D64.89 Other specified anemias; Z20.822 Contact with and (suspected) exposure to COVID-19; J18.0 Bronchopneumonia, unspecified organism; R97.20 Elevated prostate specific antigen [PSA]; E11.65 Type 2 diabetes mellitus with hyperglycemia; K52.89 Other specified noninfective gastroenteritis and colitis; I10 Essential (primary) hypertension; R10.84 Generalized abdominal pain; N39.0 Urinary tract infection, site not specified

== ENCOUNTER 2020-07-19 10:12 | Observation (INO) ==
[2020-07-19 10:24] VITALS: BMI 29.7
[2020-07-19 10:59] LABS: BASOPHILS # (AUTO) 0.1 X10^3/uL (0.0-0.1); BASOPHILS % (AUTO) 1.1 % (0.2-1.0); EOSINOPHILS # (AUTO) 0.1 x10^3/uL (0.0-0.2); HEMATOCRIT 26.8 % (42.0-54.0); HEMOGLOBIN 9.2 g/dL (13.5-18.0); LYMPHOCYTES # (AUTO) 1.1 X10^3/uL (1.3-2.9); LYMPHOCYTES % (AUTO) 17.6 % (21.0-51.0); MEAN CORPUSCULAR HEMOGLOBIN 34.6 pg (27.0-34.0); MEAN CORPUSCULAR HGB CONC 34.5 g/dL (33.0-35.0); MEAN CORPUSCULAR VOLUME 100.4 fL (80.0-100.0); MEAN PLATELET VOLUME 6.9 fL (7.4-11.0); MONOCYTES # (AUTO) 0.8 x10^3/uL (0.3-0.8); MONOCYTES % (AUTO) 11.7 % (0.0-13.0); NEUTROPHILS # (AUTO) 4.5 x10^3/uL (2.2-4.8); NEUTROPHILS % (AUTO) 68.6 % (42.0-75.0); PLATELET COUNT 211 X10^3/uL (150.0-450.0); RED BLOOD COUNT 2.67 X10^6/uL (4.7-6.0); RED CELL DISTRIBUTION WIDTH 15.7 % (11.6-16.5); WHITE BLOOD COUNT 6.5 X10^3/uL (3.6-10.0)
[2020-07-19 11:04] LABS: BLOOD UREA NITROGEN 25 mg/dL (7-18); CALCIUM 8.7 mg/dL (8.5-10.1); CARBON DIOXIDE 28.6 mmol/L (21-32); CHLORIDE 100 mmol/L (98-107); COR NA(FOR HYPERGLY) 136 mmol/L (136-145); CREATININE 1.22 mg/dL (0.70-1.30); SODIUM 136 mmol/L (136-145); TROPONIN I < 0.02 ng/mL (0-1.5); eGFR NON BLACK RACES > 60 (>60)
[2020-07-19] MEDS ORDERED: NS 1000 ML 1,000 ML IV ONE (11:05)
[2020-07-19 11:10] LABS: ALANINE AMINOTRANSFERASE 42 Units/L (12-78); ALBUMIN 2.7 g/dL (3.4-5.0); ALKALINE PHOSPHATASE 65 Units/L (46-116); ASPARTATE AMINO TRANSFERASE 24 Units/L (15-37); CKMB % 4.4 % (<4); COR CA(FOR HYPOALB) 9.7 mg/dL (8.5-10.1); CREATINE KINASE 23 Units/L (39-308); CREATINE KINASE MB < 1.0 ng/mL (0-4.0); TOTAL PROTEIN 7.8 g/dL (6.4-8.2)
[2020-07-19 11:13] LABS: BAND NEUTROPHILS % 7 % (0-10); PLATELET MORPHOLOGY COMMENT NORMAL (NORMAL)
[2020-07-19] MEDS ORDERED: NS 1000 ML 1,000 ML ONE (11:19)
--- NOTE | 2020-07-19 11:26 | DR.GENAD ---
HPI Time Seen Time Seen by Provider: 07/19/20 10:22 PCP Primary Care Physician: TRACEY HPI Comment HPI Comment: Patient presents with the complaint of syncope and weakness. Recently discharged from hospital. Found to be anemic without etiology. notes that they got up this morning and she helped him to bathroom. While standing at the sink, she notes that patient "passed out." She was able to ease him to the ground. Notes dizziness and weakness. Complaint/Symptoms Chief Complaint:: [facility] BRINGS PT. IN WITH C/O SYNCOPE. PT. STATES HE PASSED OUT THIS MORNING. PT. WAS JUST DISCHARGED HOME FROM THE HOSPITAL ON 07/14/20. PT. WAS HOSPITALIZED FOR ANEMIA. PT. ALSO C/O RIGHT FOOT PAIN. COVID-19 Coronavirus risk:travel/contact w/high risk person: No Has patient experienced Coronavirus symptoms: No Source History Provided: Patient and EMS Mode of Arrival Mode of Arrival: EMS Timing Onset of Chief Complaint: 07/19/20 PMH PMH Past Medical History: Yes Past Medical History: Anemia, Arthritis, Dyslipidemia, Gout and Hypertension Past Surgical History: Yes Surgical History: Angioplasty/Stents and Other Family History History of Family Medical Conditions: Yes Family Medical History: Diabetes Mellitus and Hypertension Social History Does patient currently use any type of tobacco product: No Have you used tobacco products in the last 12 months: No Type of Tobacco Use: None Does any household member use tobacco: No Alcohol Use: None Do you use any recreational Drugs:: No Lives With: Spouse Lives Where: Home Travel Risk Coronavirus risk:travel/contact w/high risk person: No Has patient experienced Coronavirus symptoms: No Infectious screening In the last 2 months have you had wt loss of >10#?: NO Have you had fever, night sweats or hemotysis?: No Have you traveled outside the country in the last 6 months?: No Isolation: Standard ROS Review of Systems Constitutional: See HPI Cardiovascular: Syncope Hematologic/Lymphatic: Anemia All Other Systems: Reviewed and Negative PE Vital Signs Vitals: Temperature 97.9 F Pulse Rate [Standing] 67 Pulse Rate [Sitting] 80 Pulse Rate [Lying] 57 Pulse Rate 62 Respiratory Rate 25 Blood Pressure [Left Arm] 162/71 Blood Pressure [Standing] 100/55 Blood Pressure [Sitting] 119/56 Blood Pressure [Lying] 110/56 Blood Pressure 131/60 O2 Sat by Pulse Oximetry 96 General Limitations: No Limitations General Appearance: Alert and In No Apparent Distress Head Head Exam: Normal Inspection, Atraumatic and Normocephalic Eyes Eye exam: Normal Appearance and Other (pale conjunctiva) ENT ENT Exam: Normal Exam Neck Neck Exam: Normal Inspection and Trachea Midline Chest Chest Inspection: Normal Inspection and Symmetric Chest Wall Rise Respiratory Respiratory Exam: Normal Lung Sounds Bilat Respiratory Exam: Bilateral: Clear to Auscultation Cardiovascular Cardiovascular Exam: Regular Rate, Normal Rhythm and Normal Heart Sounds Abdominal Exam Abdominal Exam: Normal Inspection, Normal Bowel Sounds and Soft Neurologic Neurological Exam: Alert and Oriented X3 Psychiatric Psychiatric Exam: Normal Affect and Normal Mood Skin Skin Exam: Warm, Dry and Intact COURSE Reevaluation 1st: Unchanged Consultation Called: 13:00 Consultation Comments: awaiting callback from Dr. Coronel [id number]. Spoke with Dr. Coronel who accepts patient for admission. ROR Labs Reviewed Laboratory Results Reviewed?: Yes Result Diagrams: 07/19/20 10:36 07/19/20 10:36 Laboratory: WBC 6.5 X10^3/uL (3.6-10.0) 07/19/20 10:36 RBC 2.67 X10^6/uL (4.7-6.0) L 07/19/20 10:36 Hgb 9.2 g/dL (13.5-18.0) L 07/19/20 10:36 Hct 26.8 % (42.0-54.0) L 07/19/20 10:36 MCV 100.4 fL (80.0-100.0) H 07/19/20 10:36 MCH 34.6 pg (27.0-34.0) H 07/19/20 10:36 MCHC 34.5 g/dL (33.0-35.0) 07/19/20 10:36 RDW 15.7 % (11.6-16.5) 07/19/20 10:36 Plt Count 211 X10^3/uL (150.0-450.0) 07/19/20 10:36 Plt Count Comment Adequate (ADEQUATE) 07/19/20 10:36 MPV 6.9 fL (7.4-11.0) L 07/19/20 10:36 Neut % (Auto) 68.6 % (42.0-75.0) 07/19/20 10:36 Lymph % (Auto) 17.6 % (21.0-51.0) L 07/19/20 10:36 [place] % (Auto) 11.7 % (0.0-13.0) 07/19/20 10:36 Eos % (Auto) 1.0 % (0.9-2.9) 07/19/20 10:36 Baso % (Auto) 1.1 % (0.2-1.0) H 07/19/20 10:36 Neut # (Auto) 4.5 x10^3/uL (2.2-4.8) 07/19/20 10:36 Lymph # (Auto) 1.1 X10^3/uL (1.3-2.9) L 07/19/20 10:36 [place] # (Auto) 0.8 x10^3/uL (0.3-0.8) 07/19/20 10:36 Eos # (Auto) 0.1 x10^3/uL (0.0-0.2) 07/19/20 10:36 Baso # (Auto) 0.1 X10^3/uL (0.0-0.1) 07/19/20 10:36 Absolute Nucleated RBC 0.3 /100WBC 07/19/20 10:36 Total Counted 100 07/19/20 10:36 Neutrophils % (Manual) 59 % (39-76) 07/19/20 10:36 Band Neutrophils % 7 % (0-10) 07/19/20 10:36 Lymphocytes % (Manual) 26 % (13-43) 07/19/20 10:36 Monocytes % (Manual) 7 % (4-9) 07/19/20 10:36 Eosinophils % (Manual) 1 % (0-6) 07/19/20 10:36 Plt Morphology Comment Normal (NORMAL) 07/19/20 10:36 RBC Morphology Normal (NORMAL) 07/19/20 10:36 D-Dimer 1.29 ug/ml (0.0-0.57) H* 07/19/20 10:36 Sodium 136 mmol/L (136-145) 07/19/20 10:36 Corrected Sodium 136 mmol/L (136-145) 07/19/20 10:36 Potassium 4.0 mmol/L (3.5-5.1) 07/19/20 10:36 Chloride 100 mmol/L (98-107) 07/19/20 10:36 Carbon Dioxide 28.6 mmol/L (21-32) 07/19/20 10:36 BUN 25 mg/dL (7-18) H 07/19/20 10:36 Creatinine 1.22 mg/dL (0.70-1.30) 07/19/20 10:36 Est GFR (MDRD) Af Amer > 60 (>60) 07/19/20 10:36 Est GFR (MDRD) Non-Af > 60 (>60) 07/19/20 10:36 Glucose 119 mg/dL (65-99) H 07/19/20 10:36 Calcium 8.7 mg/dL (8.5-10.1) 07/19/20 10:36 Corrected Calcium 9.7 mg/dL (8.5-10.1) 07/19/20 10:36 Total Bilirubin 0.40 mg/dL (0.2-1.0) 07/19/20 10:36 AST 24 Units/L (15-37) 07/19/20 10:36 ALT 42 Units/L (12-78) 07/19/20 10:36 Alkaline Phosphatase 65 Units/L (46-116) 07/19/20 10:36 Creatine Kinase 23 Units/L (39-308) L 07/19/20 10:36 CK-MB (CK-2) < 1.0 ng/mL (0-4.0) 07/19/20 10:36 CK/CKMB % Calc 4.4 % (<4) 07/19/20 10:36 Troponin I < 0.02 ng/mL (0-1.5) 07/19/20 10:36 Total Protein 7.8 g/dL (6.4-8.2) 07/19/20 10:36 Albumin 2.7 g/dL (3.4-5.0) L 07/19/20 10:36 Globulin 5.1 g/dL (2.5-4.5) H 07/19/20 10:36 Albumin/Globulin Ratio 0.5 Ratio (1.1-2.1) L 07/19/20 10:36 Blood Type O POSITIVE 07/19/20 11:27 Antibody Screen Negative 07/19/20 11:27 XRAY X-ray Results: HISTORY SOB hypertension evaluate pulmonary embolus. Elevated D-dimer. STUDY CTA CHEST COMPARISON Chest CT 07/12/[address] axial images of the chest were obtained with IV contrast. Coronal and sagittal images were reconstructed. 3D reconstructions using axial MIPS imaging was performed and reviewed. Dose reduction techniques included Automated Exposure Control (AEC) and adjustment of mA and kV. Stenoses are measured using NASCET criteria. FINDINGS Pulmonary arteries are identified to segmental branches. There are no pulmonary emboli. Heart size at the upper limits of normal.Atherosclerotic calcifications are present in the coronary arteries. The pulmonary artery and aorta have a normal caliber. No mediastinal mass or significant lymphadenopathy. The thyroid has a normal size and configuration. No axillary mass or significant axillary lymphadenopathy is identified. Focal opacity in the lingula could be pneumonia. Linear area in the right middle lobe is probably atelectasis. No pleural effusion or pneumothorax. Calcified granuloma in the right lung base. Limited views of the upper abdomen show no significant abnormality. Large eventration in the left hemidiaphragm. Probably also in the right hemidiaphragm.Degenerative changes are present in the spine. IMPRESSION 1. No pulmonary emboli 2. Possible left lung pneumonia Electronically signed by: Denys Shelby (July 19, 2020 12:52:16) Chest AP portable Indication: Syncope. Comparison July 14, 2020 FINDINGS There is no pneumothorax or effusion. No dense consolidation seen with vague patchy opacity in left lower. Heart size is upper limits of normal. Monitor leads obscure minimal detail. IMPRESSION Patchy left lower lung opacity possible. Pneumonia not excluded. No other acute abnormality Electronically signed by: SAULO PRASAD (July 19, 2020 13:15:43) HISTORY SYNCOPE STUDY BRAIN W/O CON COMPARISON None TECHNIQUE Multiple axial CT images of the head without contrast. Dose reduction techniques including Automated Exposure Control (AEC) and adjustment of mA and kV were utilized. FINDINGS No visible intracranial hemorrhage or overt acute infarct. No ventriculomegaly or midline shift. Basal cisterns appear patent. Globes intact. Included paranasal sinuses and mastoid air cells appear aerated. Skull base and calvarium appear intact. IMPRESSION No acute intracranial finding. Electronically signed by: Ozzy Cameron (July 19, 2020 11:35:48) EKG Rate: 58 [place]: Normal Rhythm: NSR and SB Hypertrophy: None ST: Nonsp Opioid Opioid Risk Tool Age (Phani box if 16-45): No History of Preadolescent Sexual Abuse: No Total: 0 Total Score Risk Category: Low Risk Copyright: Almazan LR predicting aberrant behaviors Diagnosis Discharge Problem: Syncope Qualifiers: Syncope type: unspecified Qualified Code(s): R55 - Syncope and collapse
--- NOTE | 2020-07-19 11:38 | CT ---
HISTORYSYNCOPESTUDYBRAIN W/O CONCOMPARISONNoneTECHNIQUEMultiple axial CT images of the head without contrast. Dose reduction techniques including Automated Exposure Control (AEC) and adjustment of mA and kV were utilized.FINDINGSNo visible intracranial hemorrhage or overt acute infarct. No ventriculomegaly or midline shift. Basal cisterns appear patent. Globes intact. Included paranasal sinuses and mastoid air cells appear aerated. Skull base and calvarium appear intact.IMPRESSIONNo acute intracranial finding.Electronically signed by: Ozzy Cameron (July 19, 2020 11:35:48)
[2020-07-19] MEDS ORDERED: NS 100 ML IV 100 ML IV ONE (11:45)
--- NOTE | 2020-07-19 12:54 | CT ---
HISTORYSOB hypertension evaluate pulmonary embolus. Elevated D-dimer.[facility]CT[facility]COM[facility] 07[facility]12[facility]2020TECHNIQUEMultiple CT axial images of the chest were obtained with IV contrast. Coronal and sagittal images were reconstructed. 3D reconstructions using axial MIPS imaging was performed and reviewed. Dose reduction techniques included Automated Exposure Control (AEC) and adjustment of mA and kV.Stenoses are measured using NASCET criteria.FINDINGSPulmonary arteries are identified to segmental branches. There are no pulmonary emboli.Heart size at the upper limits of normal.Atherosclerotic calcifications are present in the coronary arteries. The pulmonary artery and aorta have a normal caliber.No mediastinal mass or significant lymphadenopathy. The thyroid has a normal size and configuration. No axillary mass or significant axillary lymphadenopathy is identified.Focal opacity in the lingula could be pneumonia. Linear area in the right middle lobe is probably atelectasis.No pleural effusion or pneumothorax. Calcified granuloma in the right lung base.Limited views of the upper abdomen show no significant abnormality. Large eventration in the left hemidiaphragm. Probably also in the right hemidiaphragm.Degenerative changes are present in the spine.IMPRESSION1. No pulmonary emboli2. Possible left lung pneumoniaElectronically signed by: Denys Shelby (July 19, 2020 12:52:16)
--- NOTE | 2020-07-19 13:17 | RAD ---
Chest AP portableIndication: Syncope.Comparison July 14, 2020FINDINGSThere is no pneumothorax or effusion. No dense consolidation seen with vague patchy opacity in left lower. Heart size is upper limits of normal. Monitor leads obscure minimal detail.IMPRESSIONPatchy left lower lung opacity possible. Pneumonia not excluded. No other acute abnormalityElectronically signed by: SAULO PRASAD (July 19, 2020 13:15:43)
[2020-07-19] MEDS ORDERED: LEVAQUIN TAB 500 MG PO SCH (15:09)
[2020-07-19] MEDS ORDERED: SALINE 3% 15 ML NEB TX ONE (16:38)
[2020-07-19] MEDS: DUONEB 0.5 MG/3 MG (3 mL) NEB SCH ×2 (16:40→22:01)
[2020-07-19] MEDS ORDERED: SALINE 3% 15 ML NEB TX NEB ONE (16:46)
[2020-07-19] MEDS: NS 1000 ML 1,000 ML IV SCH (17:01)
[2020-07-19 18:03] LABS: ABG BASE EXCESS 2.4 mmol/L (-2.0-2.0); ABG HCO3 26.4 mmol/L (22-26)
[2020-07-19] MEDS: LIPITOR TAB 20 MG PO SCH (21:07)
[2020-07-19] MEDS: PULMICORT NEB TX 0.5 MG NEB SCH (22:01)
[2020-07-20] MEDS ORDERED: ULTRAM PO PRN (00:09)
[2020-07-20] MEDS ORDERED: ZOFRAN TAB 4 MG SL PRN (02:12)
[2020-07-20] MEDS: NS 1000 ML 1,000 ML IV SCH ×2 (04:01→06:50)
[2020-07-20 04:08] LABS: BILIRUBIN,URINE NEGATIVE (NEGATIVE); BLOOD/HEMOGLOBIN,URINE 1+ (NEGATIVE); GLUCOSE, URINE NEGATIVE (NEGATIVE); KETONES,URINE NEGATIVE (NEGATIVE); LEUKOCYTE ESTERASE ,URINE NEGATIVE (NEGATIVE); NITRITES,URINE NEGATIVE (NEGATIVE); PROTEIN,URINE NEGATIVE (NEGATIVE); UROBILINOGEN,URINE NORMAL (NORMAL)
[2020-07-20 04:17] LABS: APPEARANCE,URINE CLEAR (CLEAR); BACTERIA,URINE TRACE /HPF (NEGATIVE); COLOR,URINE YELLOW (YELLOW); RBC,URINE 0-2 /HPF (0-3); SQUAMOUS EPITHELIAL CELL,UR NEGATIVE /HPF (NEGATIVE)
[2020-07-20 05:17] LABS: BASOPHILS % (AUTO) 0.8 % (0.2-1.0); EOSINOPHILS % (AUTO) 0.5 % (0.9-2.9); HEMOGLOBIN 7.7 g/dL (13.5-18.0); LYMPHOCYTES # (AUTO) 0.9 X10^3/uL (1.3-2.9); LYMPHOCYTES % (AUTO) 18.5 % (21.0-51.0); MEAN CORPUSCULAR HEMOGLOBIN 34.9 pg (27.0-34.0); MEAN CORPUSCULAR VOLUME 99.5 fL (80.0-100.0); MEAN PLATELET VOLUME 6.5 fL (7.4-11.0); MONOCYTES # (AUTO) 0.6 x10^3/uL (0.3-0.8); NEUTROPHILS # (AUTO) 3.2 x10^3/uL (2.2-4.8); NEUTROPHILS % (AUTO) 67.2 % (42.0-75.0); PLATELET COUNT 179 X10^3/uL (150.0-450.0); RED BLOOD COUNT 2.21 X10^6/uL (4.7-6.0); RED CELL DISTRIBUTION WIDTH 15.3 % (11.6-16.5); WHITE BLOOD COUNT 4.8 X10^3/uL (3.6-10.0)
[2020-07-20 05:35] LABS: ALANINE AMINOTRANSFERASE 36 Units/L (12-78); ALBUMIN 2.2 g/dL (3.4-5.0); ALKALINE PHOSPHATASE 51 Units/L (46-116); ASPARTATE AMINO TRANSFERASE 16 Units/L (15-37); BLOOD UREA NITROGEN 18 mg/dL (7-18); CARBON DIOXIDE 23.8 mmol/L (21-32); CHLORIDE 103 mmol/L (98-107); COR CA(FOR HYPOALB) 9.4 mg/dL (8.5-10.1); COR NA(FOR HYPERGLY) 139 mmol/L (136-145); CREATININE 1.08 mg/dL (0.70-1.30); SODIUM 138 mmol/L (136-145); TOTAL PROTEIN 6.5 g/dL (6.4-8.2); eGFR NON BLACK RACES > 60 (>60)
[2020-07-20 05:42] LABS: PLATELET MORPHOLOGY COMMENT NORMAL (NORMAL)
[2020-07-20] MEDS: DUONEB 0.5 MG/3 MG (3 mL) NEB SCH ×4 (08:48→20:15)
[2020-07-20] MEDS: PULMICORT NEB TX 0.5 MG NEB SCH ×2 (08:48→20:15)
[2020-07-20] MEDS ORDERED: TORADOL 15 MG VIAL IVP ONE (09:39)
[2020-07-20] MEDS ORDERED: VOLTAREN 1 % GEL MULTI DOSE TUBE TOP PRN (09:40)
[2020-07-20] MEDS ORDERED: TYLENOL 325 MG TAB PO PRN (09:42)
[2020-07-20] MEDS ORDERED: BENADRYL INJ 50 MG VIAL IVP PRN (09:42)
[2020-07-20] MEDS ORDERED: NS 500 ML IV 500 ML IV ONE (09:42)
[2020-07-20] MEDS ORDERED: NORCO 5/325 MG TAB PO PRN (09:43)
[2020-07-20] MEDS ORDERED: BENADRYL CAP/TAB 25 MG PO ONE (09:55)
[2020-07-20] MEDS ORDERED: BENICAR TAB 40 MG PO ONE (09:55)
[2020-07-20] MEDS ORDERED: TORADOL 15 MG VIAL ONE (09:55)
[2020-07-20] MEDS ORDERED: ZYLOPRIM ONE (09:56)
[2020-07-20] MEDS ORDERED: SOLU-Medrol 125 MG VIAL ONE (09:56)
[2020-07-20] MEDS: PROTONIX INJ 40 MG VIAL IVP SCH (10:26)
[2020-07-20] MEDS: HEMOCYTE-PLUS PO SCH (10:26)
[2020-07-20] MEDS: ZYLOPRIM PO SCH (10:27)
[2020-07-20] MEDS: BENICAR TAB 40 MG PO SCH (10:27)
[2020-07-20] MEDS: ROBITUSSIN DM PO SCH ×4 (10:27→20:11)
[2020-07-20] MEDS: SOLU-Medrol 125 MG VIAL IVP SCH ×3 (10:28→21:13)
[2020-07-20] MEDS: ROCEPHIN VIAL 1 GRAM 1 G in NS 100 ML IV + SPIKE MINIBAG* 100 ML IV SCH (10:29)
[2020-07-20] MEDS: BENADRYL CAP/TAB 25 MG PO SCH ×2 (10:30→20:11)
--- NOTE | 2020-07-20 15:19 | VAS ---
HISTORYSYNCOPEConcern for carotid artery stenosis. Carotid atherosclerosis.EXAM: BILATERAL DOPPLER CAROTID ULTRASOUND EXAMTechnique: Multiple cervantes scale and color flow Doppler images of the right and left carotid arterial system were obtained. The vertebral arterial system was evaluated as well.Findings:Nonocclusive color flow Doppler is seen throughout the right and left carotid arterial system. No hemodynamically significant internal carotid arterial stenosis is seen based on velocity criteria. There is mild bilateral atherosclerosis and soft atherosclerotic plaque formation of the bilateral carotid bulbs and ICAs with associated intimal thickening but without evidence for high-grade stenosis (>70%) or occlusion of the carotid arteries. The right and left vertebral artery demonstrate antegrade flow.IMPRESSION:Elevated velocities in the left CCA in the 50-69% stenosis range.Mild bilateral carotid atherosclerosis and soft atherosclerotic plaque formation of the bilateral carotid bulbs and in both ICAs with [id number] associated carotid intimal thickening but without evidence for high-grade stenosis or occlusion of the carotid arteries, based on Doppler velocity criteria.Appropriate, antegrade, vertebral arterial flow.Peak right ICA velocity: 94 centimeter/seconds.Peak right CCA velocity: 121 centimeter/seconds.Peak left ICA velocity: 85 centimeter/seconds.Peak left CCA velocity: 161 centimeter/seconds.Right ICA to CCA ratio: 0.8.Left ICA to CCA ratio: 0.5.Electronically signed by: EVANGELINA MATAMOROS III (July 20, 2020 15:16:44)
--- NOTE | 2020-07-20 15:26 | VAS ---
Ultrasound bilateral lower extremity venous DopplerIndication: Bilateral lower extremity swellingCOMPARISONSonogram from October 19, 2019TECHNIQUEDynamic grayscale, color spectral Doppler imaging with compression techniques and spectral analysis through the bilateral lower extremity veinsFINDINGSThe bilateral common femoral veins, superficial femoral veins throughout their lengths and popliteal veins are patent and compressible with normal respiratory phasicity.IMPRESSIONNo right or left lower extremity deep vein thrombosisElectronically signed by: SAULO PRASAD (July 20, 2020 15:24:55)
--- NOTE | 2020-07-20 17:09 | DR.H&P ---
H&P - History & Physical for Day of: H&P Date: 07/19/20 - Chief Complaint Chief Complaint: "PASSED OUT" WEAKNESS - History of Present Illness History of Present Illness: PT IS 75 WM ER ADMISSION WITH CO PASSED OUT AT HOME. SPOUSE STATES HE HAD SMALL AMOUNT VOIDED URINE AND LOC WAS BREIEF, LESS THAN ONE MINUTE, BUT PT REMAINED VERY WEAK. PT HAD CTA CHEST REVEALING PNEUMONIA ON ADMISSSION. PT HAD PMH OF ANEMIA, RECENTLY SEEN [employer]. PT ALSO HAD HTN, CAD AND OA. PT WAS RECENTLY IN [facility] FOR ACUTE FEB[facility]LE ILLNESS, WITHOUT COVID. PT DENIES ANY CHEST PAIN. PT ADMITTED FOR TREATMENT OF ACUTE ILLNESS. - Past Medical History Past Medical History: Hypertension, Dyslipidemia, Anemia, Arthritis, Gout - Past Surgical History Surgical History: Angioplasty/Stents, Other - Family History Family Medical History: Diabetes Mellitus, Hypertension - Social History Does patient currently use any type of tobacco product: No Have you used tobacco products in the last 12 months: No Type of Tobacco Use: None Does any household member use tobacco: No Alcohol Use: None Drug Use: None - Medications Home Medications: CLAUS Inhibitors Allergy (Verified 07/10/20 16:00) piperacillin [From Zosyn] Allergy (Verified 07/19/20 10:20) tazobactam [From Zosyn] Allergy (Verified 07/19/20 10:20) CONTINUE taking the following medications felodipine 10 mg PO DAILY 07/19/20 [History] atorvastatin 40 mg PO HS 07/20/20 [History] cyanocobalamin (vitamin B-12) [Vitamin B-12] 5,000 mcg PO DAILY 07/20/20 [Histo ry] diclofenac sodium 75 mg PO BID PRN 07/20/20 [History] diphenhydramine HCl [Benadryl] 25 mg PO BID 07/20/20 [History] fluticasone propionate [Flonase] 1 spray INTRANASAL DAILY 07/20/20 [History] folic acid 800 mcg PO DAILY 07/20/20 [History] - Review of Systems Constitutional: Weakness, Malaise Eyes: No Symptoms Reported ENT: No Symptoms Reported Respiratory: SOB with Excertion Cardiovascular: Edema, Light Headedness Gastrointestinal: Nausea Genitourinary: No Symptoms Reported Musculoskeletal: Back Pain, Foot Pain Skin: No Symptoms Reported Neurological: Weakness, Other (LOC, DUE TO SYNCOPE, BRIEF LESS THAN ONE MINUTE) - Physical Exam Vital Signs: Temperature 97.3 F Pulse Rate [Right Radial] 58 Pulse Rate [Standing] 67 Pulse Rate [Sitting] 80 Pulse Rate [Lying] 57 Pulse Rate 76 Respiratory Rate 20 Blood Pressure [Left Arm] 133/63 Blood Pressure [Standing] 100/55 Blood Pressure [Sitting] 119/56 Blood Pressure [Lying] 110/56 Blood Pressure 123/59 O2 Sat by Pulse Oximetry 95 Oriented: Normal Eyes: Normal Ear: Normal Nose: Normal Throat: Normal Respiratory: RLL Diminished, LLL Diminished Cardiovascular: Normal, Edema : Normal Auscultation: Bowel Sounds: Normal Palpation: Normal Tenderness: Normal Skin: Decreased Turgur Musculoskeletal: Right, Foot, Tender (ERYTHEMATOUS JOINT) Psychiatric: Anxiety Affect: Anxious Speech Pattern: Clear, Appropriate - Assessment/Plan (1) Pneumonia Status: Acute Plan: ADMIT, CTA CHEST IN ER. ABG RO HYPOXIA. RESP THERAPY AND SUPPLEMENTAL O2. IV HYDRATION, IV ATBX, VERIFY HOME MEDICATION. SPUTUM CULTURE, CARDIAC MONITORING, CT HEAD ON ADMISSION RO CVA. BP CONTROL (2) Hypertension Status: Acute (3) CAD (coronary artery disease) Status: Acute (4) Syncope Qualifiers: Syncope type: unspecified Qualified Code(s): R55 - Syncope and collapse Status: Acute - Allergies Allergies/Adverse Reactions: Allergies Allergy/AdvReac Type Severity Reaction Status Date / Time CLAUS Inhibitors Allergy Verified 07/10/20 16:00 piperacillin [From Zosyn] Allergy Verified 07/19/20 10:20 tazobactam [From Zosyn] Allergy Verified 07/19/20 10:20
[2020-07-20 18:42] LABS: HEMOGLOBIN 9.1 g/dL (13.5-18.0)
[2020-07-20] MEDS: VIBRAMYCIN 100 MG in D5W 250 ML IV 250 ML IV SCH (20:12)
[2020-07-20] MEDS: LIPITOR TAB 20 MG PO SCH (20:12)
[2020-07-21] MEDS: NS 1000 ML 1,000 ML IV SCH ×2 (00:37→06:08)
[2020-07-21] MEDS: SOLU-Medrol 125 MG VIAL IVP SCH (05:23)
[2020-07-21] MEDS ORDERED: FELODIPINE 10 MG PO SCH (09:00)
[2020-07-21 09:18] LABS: BASOPHILS % (AUTO) 0.4 % (0.2-1.0); HEMATOCRIT 26.1 % (42.0-54.0); LYMPHOCYTES # (AUTO) 0.4 X10^3/uL (1.3-2.9); LYMPHOCYTES % (AUTO) 8.5 % (21.0-51.0); MEAN CORPUSCULAR HEMOGLOBIN 33.9 pg (27.0-34.0); MEAN CORPUSCULAR HGB CONC 34.4 g/dL (33.0-35.0); MEAN CORPUSCULAR VOLUME 98.7 fL (80.0-100.0); MEAN PLATELET VOLUME 6.6 fL (7.4-11.0); MONOCYTES # (AUTO) 0.3 x10^3/uL (0.3-0.8); MONOCYTES % (AUTO) 5.5 % (0.0-13.0); NEUTROPHILS # (AUTO) 4.5 x10^3/uL (2.2-4.8); NEUTROPHILS % (AUTO) 85.6 % (42.0-75.0); PLATELET COUNT 182 X10^3/uL (150.0-450.0); RED BLOOD COUNT 2.64 X10^6/uL (4.7-6.0); RED CELL DISTRIBUTION WIDTH 16.4 % (11.6-16.5); WHITE BLOOD COUNT 5.3 X10^3/uL (3.6-10.0)
[2020-07-21 09:28] LABS: ALANINE AMINOTRANSFERASE 38 Units/L (12-78); ALBUMIN 2.3 g/dL (3.4-5.0); ALKALINE PHOSPHATASE 65 Units/L (46-116); ASPARTATE AMINO TRANSFERASE 21 Units/L (15-37); BLOOD UREA NITROGEN 19 mg/dL (7-18); CALCIUM 8.5 mg/dL (8.5-10.1); CHLORIDE 104 mmol/L (98-107); COR CA(FOR HYPOALB) 9.9 mg/dL (8.5-10.1); COR NA(FOR HYPERGLY) 140 mmol/L (136-145); CREATININE 1.15 mg/dL (0.70-1.30); SODIUM 137 mmol/L (136-145); eGFR NON BLACK RACES > 60 (>60)
[2020-07-21] MEDS: PROTONIX INJ 40 MG VIAL IVP SCH (09:36)
[2020-07-21] MEDS: ROBITUSSIN DM PO SCH ×2 (09:44→13:45)
[2020-07-21] MEDS: BENADRYL CAP/TAB 25 MG PO SCH (09:44)
[2020-07-21] MEDS: BENICAR TAB 40 MG PO SCH (09:45)
[2020-07-21] MEDS: HEMOCYTE-PLUS PO SCH (09:45)
[2020-07-21] MEDS: ROCEPHIN VIAL 1 GRAM 1 G in NS 100 ML IV + SPIKE MINIBAG* 100 ML IV SCH (09:46)
[2020-07-21] MEDS: ZYLOPRIM PO SCH (09:47)
[2020-07-21] MEDS: PULMICORT NEB TX 0.5 MG NEB SCH (09:48)
[2020-07-21] MEDS: DUONEB 0.5 MG/3 MG (3 mL) NEB SCH ×2 (09:48→12:25)
[2020-07-21 09:49] LABS: BAND NEUTROPHILS % 5 % (0-10); PLATELET MORPHOLOGY COMMENT NORMAL (NORMAL)
--- NOTE | 2020-07-21 10:12 | RAD ---
HISTORYPneumoniaSTUDYChest AP [id number]/18/2021, plain film and CTA chestFINDINGSThe heart is within normal limits in size. The indu are normal. The lungs are hypoinflated but free of acute infiltrates. No pleural effusions are identified. Bony thorax is unremarkable.IMPRESSIONLungs hypoinflated but clearElectronically signed by: MARIA LUISA MATAMOROS (July 21, 2020 10:10:30)
[2020-07-21] MEDS: VIBRAMYCIN 100 MG in D5W 250 ML IV 250 ML IV SCH (11:08)
[2020-07-21 12:10] VITALS: BP 124/57
== END 2020-07-21 15:31 | disposition home or self-care (01) ==
LOC: ER 10:12 → MED/SURG 10:12
PROVIDERS: ADMIT Internal Medicine; ATTEND Internal Medicine
DX: D50.8 Other iron deficiency anemias; J18.8 Other pneumonia, unspecified organism; R06.02 Shortness of breath; R55 Syncope and collapse; I10 Essential (primary) hypertension; Z20.822 Contact with and (suspected) exposure to COVID-19; I25.10 Atherosclerotic heart disease of native coronary artery without angina pectoris; R60.0 Localized edema

== ENCOUNTER 2022-08-06 11:46 | Inpatient (IN) ==
[2022-08-06] MEDS ORDERED: PREDNISONE TAB 20 MG PO ONE (12:21)
[2022-08-06] MEDS ORDERED: PHARMACY CONSULT - VANCOMYCIN XX SCH (13:00)
[2022-08-06] MEDS: LR 1,000 ML IV 1,000 ML IV SCH (13:03)
[2022-08-06 13:10] LABS: LYMPHOCYTES # (AUTO) 0.4 X10^3/uL (1.3-2.9); MEAN CORPUSCULAR VOLUME 94.1 fL (80.0-100.0); PLATELET COUNT 63 X10^3/uL (150.0-450.0); WHITE BLOOD COUNT 4.4 X10^3/uL (3.6-10.0)
[2022-08-06 13:19] LABS: ALANINE AMINOTRANSFERASE 19 Units/L (12-78); ALKALINE PHOSPHATASE 55 Units/L (46-116); ASPARTATE AMINO TRANSFERASE 17 Units/L (15-37); BLOOD UREA NITROGEN 33 mg/dL (7-18); CALCIUM 7.8 mg/dL (8.5-10.1); CARBON DIOXIDE 25.4 mmol/L (21-32); CHLORIDE 100 mmol/L (98-107); COR CA(FOR HYPOALB) 9.4 mg/dL (8.5-10.1); CREATININE 1.77 mg/dL (0.70-1.30); GLUCOSE 95 mg/dL (65-99); POTASSIUM 3.8 mmol/L (3.5-5.1); SODIUM 135 mmol/L (136-145); TOTAL PROTEIN 5.9 g/dL (6.4-8.2); eGFR NON BLACK RACES 40 (>60)
[2022-08-06] MEDS: MERREM VIAL 500 MG in NS 50 ML IV 50 ML IV SCH ×2 (13:19→23:00)
[2022-08-06 13:21] LABS: BASOPHILS # (AUTO) 0.1 X10^3/uL (0.0-0.1); BASOPHILS % (AUTO) 1.4 % (0.2-1.0); EOSINOPHILS % (AUTO) 0.4 % (0.9-2.9); HEMATOCRIT 22.3 % (42.0-54.0); HEMOGLOBIN 7.6 g/dL (13.5-18.0); LYMPHOCYTES % (AUTO) 9.4 % (21.0-51.0); MEAN CORPUSCULAR HEMOGLOBIN 31.8 pg (27.0-34.0); MEAN CORPUSCULAR HGB CONC 33.8 g/dL (33.0-35.0); MEAN PLATELET VOLUME 7.7 fL (7.4-11.0); MONOCYTES # (AUTO) 0.3 x10^3/uL (0.3-0.8); MONOCYTES % (AUTO) 7.2 % (0.0-13.0); NEUTROPHILS # (AUTO) 3.5 x10^3/uL (2.2-4.8); NEUTROPHILS % (AUTO) 81.6 % (42.0-75.0); RED BLOOD COUNT 2.38 X10^6/uL (4.7-6.0); RED CELL DISTRIBUTION WIDTH 28.7 % (11.6-16.5)
[2022-08-06] MEDS ORDERED: VANCOMYCIN IV *PREMIX 1 G/200 ML BAG 1 G/200 ML PIGGYBACK IV NR (13:30)
[2022-08-06 14:47] LABS: PLATELET MORPHOLOGY COMMENT NORMAL (NORMAL)
[2022-08-06 14:48] LABS: ANISOCYTOSIS 3+; BAND NEUTROPHILS % 4 % (0-10)
[2022-08-06] MEDS: GLUCOPHAGE PO SCH (17:00)
[2022-08-06] MEDS ORDERED: GLUCOPHAGE ONE (17:00)
--- NOTE | 2022-08-06 17:41 | RAD ---
HISTORYFEVER, FAILED OUTPATIENT TX, MYELODYSPALSIA Relevant Clinical InformationSTUDYCHEST, EDGARD/GHULAM [id number]/17/2021.FINDINGSThe trachea is midline. The cardiac silhouette is unremarkable. There is some nonspecific bibasilar opacity which is probably atelectasis. There is no pleural effusion or pneumothorax. The bony thorax is unremarkable.IMPRESSIONNonspecific by base opacity, possibly atelectasis. Infection is not excluded.Electronically signed by: Sp Deluca (Aug 06, 2022 17:39:33)
--- NOTE | 2022-08-06 19:28 | CT ---
HISTORYfever, cough, negative xray, immunocompromised.STUDYBRAIN W/O CONCOMPARISONHead CT 11/24/2020TECHNIQUEMultiple CT axial images of the head were obtained without IV contrast. Coronal and sagittal images were reconstructed. Dose reduction techniques included Automated Exposure Control (AEC) and adjustment of mA and kV.FINDINGSAge-related findings include central and cortical atrophy with areas of low density in the periventricular white matter compatible with micro-ischemic changes. Otherwise cervantes and white matter have normal differentiation.There is no mass, shift, or hemorrhage. Cerebellar tonsils are at an appropriate level. No fluid in the sinuses or mucosal thickening to suggest sinusitis.There are bilateral mastoid effusions. These were not present on the prior CT from 2020. I do not see an etiology for these. They are typically from prior otitis media or sinus infections. But there is no evidence for sinusitis and I see no fluid in the middle ear. No bony erosions.IMPRESSION1. New mastoid effusions without etiology2. No acute finding in the brainElectronically signed by: Denys Shelby (Aug 06, 2022 19:26:44)
[2022-08-06] MEDS ORDERED: SNACK - Diabetic Appropriate PO SCH (20:00)
[2022-08-06] MEDS: DIFLUCAN 200 MG IV PREMIX* 200 MG/100 ML BAG IV SCH (20:30)
[2022-08-06] MEDS: SNACK - Diabetic Appropriate PO SCH (20:50)
[2022-08-06] MEDS ORDERED: GAMMAGARD IV ONE (21:00)
--- NOTE | 2022-08-06 21:11 | CT ---
HISTORYfever, cough, negative xray, immunocompromisedSTUDYSINUS W/O CONCOMPARISONCT head without contrast from November 24, 2020TECHNIQUENon-contrast enhanced axial images were obtained and reformatted into coronal and sagittal planes for further evaluation.Radiation dose: 169.84 mGy-cm total DLPFINDINGSSinuses are well aerated.Osteomeatal unit complexes widely patent.No significant deviation of the nasal septum.Globes, intra-orbital contents including the extra-ocular muscles are unremarkable in appearance.Trace nonspecific fluid in the mastoid air cells without osseous destruction.Middle ears are well aerated.Soft tissues are unremarkable.IMPRESSION1. Unremarkable appearance of the sinuses.2. Trace nonspecific fluid in the mastoid air cells without overt imaging findings of mastoiditis. Middle ears are well aerated.Electronically signed by: Michel Sommers (Aug 06, 2022 21:10:35)
[2022-08-06] MEDS: LOPRESSOR TAB 25 MG PO SCH (22:30)
[2022-08-06] MEDS: VANCOMYCIN IV *PREMIX 750 mg/150 ML BAG 750 MG/150 ML PIGGYBACK IV SCH (22:30)
[2022-08-06] MEDS: LANTUS SC SCH (23:27)
[2022-08-06] MEDS: NovoLIN R (or HumuLIN R) SUBCUT PRN (23:28)
[2022-08-07] MEDS: MERREM VIAL 500 MG in NS 50 ML IV 50 ML IV SCH ×3 (05:27→22:00)
[2022-08-07] MEDS: LR 1,000 ML IV 1,000 ML IV SCH ×3 (05:27→20:37)
[2022-08-07 05:28] LABS: BASOPHILS % (AUTO) 1.3 % (0.2-1.0); EOSINOPHILS % (AUTO) 0.6 % (0.9-2.9); LYMPHOCYTES # (AUTO) 0.5 X10^3/uL (1.3-2.9); LYMPHOCYTES % (AUTO) 20.4 % (21.0-51.0); MEAN CORPUSCULAR HEMOGLOBIN 32.1 pg (27.0-34.0); MEAN CORPUSCULAR HGB CONC 34.2 g/dL (33.0-35.0); MEAN CORPUSCULAR VOLUME 93.9 fL (80.0-100.0); MEAN PLATELET VOLUME 7.7 fL (7.4-11.0); MONOCYTES # (AUTO) 0.3 x10^3/uL (0.3-0.8); MONOCYTES % (AUTO) 12.2 % (0.0-13.0); NEUTROPHILS # (AUTO) 1.5 x10^3/uL (2.2-4.8); NEUTROPHILS % (AUTO) 65.5 % (42.0-75.0); PLATELET COUNT 51 X10^3/uL (150.0-450.0); RED BLOOD COUNT 1.92 X10^6/uL (4.7-6.0); RED CELL DISTRIBUTION WIDTH 28.8 % (11.6-16.5); WHITE BLOOD COUNT 2.3 X10^3/uL (3.6-10.0)
[2022-08-07 05:50] LABS: ALANINE AMINOTRANSFERASE 17 Units/L (12-78); ALBUMIN 1.7 g/dL (3.4-5.0); ALKALINE PHOSPHATASE 46 Units/L (46-116); ASPARTATE AMINO TRANSFERASE 13 Units/L (15-37); BLOOD UREA NITROGEN 32 mg/dL (7-18); CALCIUM 7.5 mg/dL (8.5-10.1); CARBON DIOXIDE 22.8 mmol/L (21-32); CHLORIDE 101 mmol/L (98-107); COR CA(FOR HYPOALB) 9.3 mg/dL (8.5-10.1); CREATININE 1.63 mg/dL (0.70-1.30); GLUCOSE 88 mg/dL (65-99); POTASSIUM 3.5 mmol/L (3.5-5.1); SODIUM 136 mmol/L (136-145); TOTAL PROTEIN 5.1 g/dL (6.4-8.2); eGFR NON BLACK RACES 44 (>60)
[2022-08-07 06:04] LABS: HEMOGLOBIN 6.2 g/dL (13.5-18.0)
[2022-08-07 06:05] LABS: ANISOCYTOSIS 3+; BAND NEUTROPHILS % 6 % (0-10); PLATELET MORPHOLOGY COMMENT NORMAL (NORMAL); SPHEROCYTES PRESENT
[2022-08-07 06:06] LABS: OVALOCYTES PRESENT
[2022-08-07] MEDS ORDERED: GLUCOPHAGE ONE ×2 (06:14→18:07)
[2022-08-07] MEDS: GLUCOPHAGE PO SCH ×2 (06:36→18:10)
[2022-08-07] MEDS: SYNTHROID 88 mcg TAB PO SCH (06:36)
[2022-08-07] MEDS ORDERED: IMMUNE GLOBULIN IV ONE (08:00)
[2022-08-07] MEDS: LOPRESSOR TAB 25 MG PO SCH ×2 (08:15→20:56)
[2022-08-07] MEDS: PriLOSEC PO SCH (08:18)
[2022-08-07] MEDS: PROCARDIA XL PO SCH (08:19)
[2022-08-07] MEDS: PREDNISONE TAB 20 MG PO SCH (08:19)
[2022-08-07] MEDS ORDERED: GAMMAGARD IV ONE (09:00)
[2022-08-07] MEDS: VANCOMYCIN IV *PREMIX 750 mg/150 ML BAG 750 MG/150 ML PIGGYBACK IV SCH ×2 (10:00→20:57)
[2022-08-07] MEDS: DIFLUCAN 200 MG IV PREMIX* 200 MG/100 ML BAG IV SCH (10:00)
[2022-08-07] MEDS ORDERED: MICRO K EXTEN CAP 10 MEQ PO PRN (13:53)
[2022-08-07] MEDS ORDERED: POTASSIUM CHL 40 MEQ/NS 0.45% 500 ML IV PRN (13:53)
[2022-08-07] MEDS ORDERED: K-RIDER 10 MEQ/NS 100 ML 10 MEQ/100 ML BAG IV PRN (13:53)
[2022-08-07] MEDS ORDERED: POTASSIUM CHLORIDE LIQ 20 MEQ UDC PO PRN (13:53)
[2022-08-07] MEDS ORDERED: POTASSIUM CHL 60 MEQ/NS 0.45% 500 ML IV PRN (13:53)
[2022-08-07] MEDS ORDERED: ZOFRAN TAB 4 MG PO PRN (13:55)
[2022-08-07] MEDS ORDERED: PROCRIT or EPOGEN VIAL 40,000 UNITS SC SCH ×2 (14:00→15:00)
[2022-08-07] MEDS ORDERED: PROCRIT or EPOGEN VIAL 20,000 UNITS SC SCH (15:00)
[2022-08-07 15:05] VITALS: BMI 22.2
[2022-08-07] MEDS: MAGNESIUM SULFATE 1 GRAM/100 mL PREMIX 1 G/100 ML BAG IV PRN ×2 (16:13→18:10)
[2022-08-07] MEDS: K-DUR TAB 20 MEQ PO PRN (16:14)
[2022-08-07] MEDS: LANTUS SC SCH (20:38)
[2022-08-07] MEDS: BRILINTA PO SCH (20:38)
[2022-08-07 20:40] LABS: CREATININE 1.52 mg/dL (0.70-1.30); VANCOMYCIN,TROUGH 17.3 ug/mL (15-20)
[2022-08-07] MEDS ORDERED: PHARMACY COMMENT IV NR (20:45)
[2022-08-07] MEDS: SNACK - Diabetic Appropriate PO SCH (20:55)
[2022-08-07] MEDS: NovoLIN R (or HumuLIN R) SUBCUT PRN (20:59)
[2022-08-08] MEDS ORDERED: MERREM VIAL ONE (05:13)
[2022-08-08] MEDS: MERREM VIAL 500 MG in NS 50 ML IV 50 ML IV SCH ×3 (05:25→22:05)
[2022-08-08] MEDS: LR 1,000 ML IV 1,000 ML IV SCH ×3 (05:32→18:50)
[2022-08-08] MEDS: SYNTHROID 88 mcg TAB PO SCH (05:33)
[2022-08-08 05:38] LABS: BASOPHILS % (AUTO) 0.8 % (0.2-1.0); EOSINOPHILS % (AUTO) 0.9 % (0.9-2.9); LYMPHOCYTES # (AUTO) 0.5 X10^3/uL (1.3-2.9); LYMPHOCYTES % (AUTO) 24.8 % (21.0-51.0); MEAN CORPUSCULAR HEMOGLOBIN 31.8 pg (27.0-34.0); MEAN CORPUSCULAR HGB CONC 33.6 g/dL (33.0-35.0); MEAN CORPUSCULAR VOLUME 94.7 fL (80.0-100.0); MEAN PLATELET VOLUME 7.8 fL (7.4-11.0); MONOCYTES # (AUTO) 0.2 x10^3/uL (0.3-0.8); MONOCYTES % (AUTO) 8.4 % (0.0-13.0); NEUTROPHILS # (AUTO) 1.3 x10^3/uL (2.2-4.8); NEUTROPHILS % (AUTO) 65.1 % (42.0-75.0); PLATELET COUNT 49 X10^3/uL (150.0-450.0); RED BLOOD COUNT 1.83 X10^6/uL (4.7-6.0); RED CELL DISTRIBUTION WIDTH 29.1 % (11.6-16.5); WHITE BLOOD COUNT 2.1 X10^3/uL (3.6-10.0)
[2022-08-08 05:45] LABS: ALANINE AMINOTRANSFERASE 19 Units/L (12-78); ALBUMIN 1.7 g/dL (3.4-5.0); ALKALINE PHOSPHATASE 48 Units/L (46-116); ASPARTATE AMINO TRANSFERASE 14 Units/L (15-37); BLOOD UREA NITROGEN 29 mg/dL (7-18); CALCIUM 7.8 mg/dL (8.5-10.1); CARBON DIOXIDE 23.3 mmol/L (21-32); CHLORIDE 105 mmol/L (98-107); COR CA(FOR HYPOALB) 9.6 mg/dL (8.5-10.1); CREATININE 1.39 mg/dL (0.70-1.30); GLUCOSE 74 mg/dL (65-99); MAGNESIUM 1.9 mg/dL (2.0-2.9); POTASSIUM 3.2 mmol/L (3.5-5.1); SODIUM 139 mmol/L (136-145); TOTAL PROTEIN 5.5 g/dL (6.4-8.2); eGFR NON BLACK RACES 53 (>60)
[2022-08-08 05:50] LABS: HEMATOCRIT 17.4 % (42.0-54.0); HEMOGLOBIN 5.8 g/dL (13.5-18.0)
[2022-08-08 05:51] LABS: BAND NEUTROPHILS % 2 % (0-10); PLATELET MORPHOLOGY COMMENT NORMAL (NORMAL)
[2022-08-08 05:52] LABS: ANISOCYTOSIS 3+; OVALOCYTES PRESENT; SPHEROCYTES PRESENT
[2022-08-08] MEDS: KLOR-CON PO PRN (06:21)
--- NOTE | 2022-08-08 06:32 | RAD ---
HISTORYFEVER, ? PNEUMONIASTUDYCHEST, 1 [id number]/05/2023.TECHNIQUEPA or AP view of the chestFINDINGSCardiac and mediastinal contours are within normal limits. There are interfaces in the right peripheral lung which is likely a skin fold rather than pneumothorax as there are pulmonary markings peripheral to these interfaces. Mild patchy right base opacity. No pleural effusion.IMPRESSIONInterfaces in the right lung are likely skin folds rather than pneumothoraces. Patchy right base opacity suspicious for pneumonia.Electronically signed by: Lonny Price (Aug 08, 2022 06:31:02)
[2022-08-08] MEDS: VANCOMYCIN IV *PREMIX 750 mg/150 ML BAG 750 MG/150 ML PIGGYBACK IV SCH ×2 (08:59→20:51)
[2022-08-08] MEDS: DIFLUCAN 200 MG IV PREMIX* 200 MG/100 ML BAG IV SCH (08:59)
[2022-08-08] MEDS: PriLOSEC PO SCH (09:00)
[2022-08-08] MEDS: PROCARDIA XL PO SCH (09:00)
[2022-08-08] MEDS: BRILINTA PO SCH ×2 (09:00→20:51)
[2022-08-08] MEDS: PREDNISONE TAB 20 MG PO SCH (09:00)
[2022-08-08] MEDS: GLUCOPHAGE PO SCH ×2 (09:01→17:15)
[2022-08-08] MEDS: LOPRESSOR TAB 25 MG PO SCH ×2 (09:01→20:51)
[2022-08-08] MEDS ORDERED: GLUCOPHAGE ONE (17:13)
[2022-08-08] MEDS: MAGNESIUM SULFATE 1 GRAM/100 mL PREMIX 1 G/100 ML BAG IV PRN ×2 (18:00→20:04)
[2022-08-08] MEDS: K-DUR TAB 20 MEQ PO PRN (18:00)
[2022-08-08] MEDS: SNACK - Diabetic Appropriate PO SCH (19:40)
[2022-08-08] MEDS: LANTUS SC SCH (20:51)
[2022-08-08] MEDS ORDERED: NS 250 ML IV 250 ML IV ONE (22:22)
[2022-08-09] MEDS ORDERED: GLUCOPHAGE ONE ×2 (04:09→16:10)
[2022-08-09 04:53] LABS: ALANINE AMINOTRANSFERASE 18 Units/L (12-78); ALBUMIN 1.8 g/dL (3.4-5.0); ALKALINE PHOSPHATASE 48 Units/L (46-116); ASPARTATE AMINO TRANSFERASE 12 Units/L (15-37); BLOOD UREA NITROGEN 25 mg/dL (7-18); CALCIUM 7.4 mg/dL (8.5-10.1); CARBON DIOXIDE 24.1 mmol/L (21-32); CHLORIDE 106 mmol/L (98-107); COR CA(FOR HYPOALB) 9.2 mg/dL (8.5-10.1); CREATININE 1.35 mg/dL (0.70-1.30); GLUCOSE 86 mg/dL (65-99); MAGNESIUM 1.9 mg/dL (2.0-2.9); POTASSIUM 4.4 mmol/L (3.5-5.1); SODIUM 139 mmol/L (136-145); TOTAL PROTEIN 5.3 g/dL (6.4-8.2); eGFR NON BLACK RACES 55 (>60)
[2022-08-09 04:54] LABS: BASOPHILS % (AUTO) 0.5 % (0.2-1.0); EOSINOPHILS % (AUTO) 0.3 % (0.9-2.9); HEMATOCRIT 23.5 % (42.0-54.0); LYMPHOCYTES # (AUTO) 0.4 X10^3/uL (1.3-2.9); LYMPHOCYTES % (AUTO) 19.8 % (21.0-51.0); MEAN CORPUSCULAR HEMOGLOBIN 30.9 pg (27.0-34.0); MEAN CORPUSCULAR VOLUME 90.9 fL (80.0-100.0); MEAN PLATELET VOLUME 7.7 fL (7.4-11.0); MONOCYTES # (AUTO) 0.2 x10^3/uL (0.3-0.8); MONOCYTES % (AUTO) 9.5 % (0.0-13.0); NEUTROPHILS # (AUTO) 1.6 x10^3/uL (2.2-4.8); NEUTROPHILS % (AUTO) 69.9 % (42.0-75.0); PLATELET COUNT 54 X10^3/uL (150.0-450.0); RED BLOOD COUNT 2.58 X10^6/uL (4.7-6.0); RED CELL DISTRIBUTION WIDTH 24.2 % (11.6-16.5); WHITE BLOOD COUNT 2.2 X10^3/uL (3.6-10.0)
[2022-08-09 05:08] LABS: BAND NEUTROPHILS % 8 % (0-10); METAMYELOCYTES % 4; MYELOCYTES % 2; PLATELET MORPHOLOGY COMMENT NORMAL (NORMAL)
[2022-08-09 05:09] LABS: ANISOCYTOSIS 3+; OVALOCYTES PRESENT
[2022-08-09] MEDS: MERREM VIAL 500 MG in NS 50 ML IV 50 ML IV SCH (05:54)
[2022-08-09] MEDS: LR 1,000 ML IV 1,000 ML IV SCH ×2 (05:54→21:11)
[2022-08-09] MEDS: SYNTHROID 88 mcg TAB PO SCH (05:55)
[2022-08-09] MEDS: GLUCOPHAGE PO SCH ×2 (06:00→17:06)
[2022-08-09] MEDS: VANCOMYCIN IV *PREMIX 750 mg/150 ML BAG 750 MG/150 ML PIGGYBACK IV SCH ×2 (08:40→09:01)
[2022-08-09] MEDS: DIFLUCAN 200 MG IV PREMIX* 200 MG/100 ML BAG IV SCH (08:40)
[2022-08-09] MEDS: LOPRESSOR TAB 25 MG PO SCH ×2 (08:41→21:23)
[2022-08-09] MEDS: BRILINTA PO SCH ×2 (08:41→21:22)
[2022-08-09] MEDS: PriLOSEC PO SCH (08:41)
[2022-08-09] MEDS: PREDNISONE TAB 20 MG PO SCH (08:41)
[2022-08-09] MEDS: PROCARDIA XL PO SCH (08:41)
[2022-08-09] MEDS: MERREM VIAL 1 G in NS 100 ML IV 100 ML IV SCH ×2 (13:33→21:20)
[2022-08-09] MEDS: SNACK - Diabetic Appropriate PO SCH (20:50)
[2022-08-09] MEDS: LANTUS SC SCH (21:22)
[2022-08-10] MEDS: LR 1,000 ML IV 1,000 ML IV SCH ×4 (00:09→20:11)
[2022-08-10] MEDS: MERREM VIAL 1 G in NS 100 ML IV 100 ML IV SCH ×3 (05:21→21:17)
[2022-08-10 05:28] LABS: BASOPHILS % (AUTO) 0.6 % (0.2-1.0); EOSINOPHILS % (AUTO) 0.7 % (0.9-2.9); MONOCYTES # (AUTO) 0.3 x10^3/uL (0.3-0.8); NEUTROPHILS # (AUTO) 2.5 x10^3/uL (2.2-4.8)
[2022-08-10 05:30] LABS: HEMATOCRIT 24.2 % (42.0-54.0); HEMOGLOBIN 8.4 g/dL (13.5-18.0); LYMPHOCYTES # (AUTO) 0.9 X10^3/uL (1.3-2.9); LYMPHOCYTES % (AUTO) 23.8 % (21.0-51.0); MEAN CORPUSCULAR HEMOGLOBIN 31.4 pg (27.0-34.0); MEAN CORPUSCULAR HGB CONC 34.8 g/dL (33.0-35.0); MEAN CORPUSCULAR VOLUME 90.2 fL (80.0-100.0); MEAN PLATELET VOLUME 7.8 fL (7.4-11.0); MONOCYTES % (AUTO) 7.2 % (0.0-13.0); NEUTROPHILS % (AUTO) 67.7 % (42.0-75.0); PLATELET COUNT 61 X10^3/uL (150.0-450.0); RED BLOOD COUNT 2.68 X10^6/uL (4.7-6.0); RED CELL DISTRIBUTION WIDTH 24.7 % (11.6-16.5)
[2022-08-10 05:37] LABS: ALANINE AMINOTRANSFERASE 18 Units/L (12-78); ALBUMIN 1.9 g/dL (3.4-5.0); ALKALINE PHOSPHATASE 53 Units/L (46-116); ASPARTATE AMINO TRANSFERASE 14 Units/L (15-37); BLOOD UREA NITROGEN 22 mg/dL (7-18); CALCIUM 7.3 mg/dL (8.5-10.1); CARBON DIOXIDE 26.2 mmol/L (21-32); CHLORIDE 105 mmol/L (98-107); CREATININE 1.16 mg/dL (0.70-1.30); GLUCOSE 103 mg/dL (65-99); POTASSIUM 3.7 mmol/L (3.5-5.1); SODIUM 140 mmol/L (136-145); TOTAL PROTEIN 5.3 g/dL (6.4-8.2); eGFR NON BLACK RACES > 60 (>60)
[2022-08-10] MEDS: SYNTHROID 88 mcg TAB PO SCH (05:52)
[2022-08-10 06:03] LABS: WHITE BLOOD COUNT 4.3 X10^3/uL (3.6-10.0)
[2022-08-10 06:12] LABS: BAND NEUTROPHILS % 7 % (0-10)
[2022-08-10 06:13] LABS: METAMYELOCYTES % 4; MYELOCYTES % 3
[2022-08-10 06:14] LABS: ANISOCYTOSIS 3+; HYPOCHROMASIA SLIGHT; PLATELET MORPHOLOGY COMMENT NORMAL (NORMAL)
[2022-08-10] MEDS ORDERED: GLUCOPHAGE ONE ×2 (09:49→16:09)
[2022-08-10] MEDS: PROCARDIA XL PO SCH (09:57)
[2022-08-10] MEDS: PriLOSEC PO SCH (09:57)
[2022-08-10] MEDS: LOPRESSOR TAB 25 MG PO SCH ×2 (09:57→21:17)
[2022-08-10] MEDS: BRILINTA PO SCH ×2 (09:57→21:16)
[2022-08-10] MEDS: GLUCOPHAGE PO SCH ×2 (09:57→16:29)
[2022-08-10] MEDS: PREDNISONE TAB 20 MG PO SCH (09:57)
[2022-08-10] MEDS: SNACK - Diabetic Appropriate PO SCH (20:00)
[2022-08-10] MEDS: LANTUS SC SCH (20:11)
[2022-08-10] MEDS: KLOR-CON PO PRN (21:17)
[2022-08-11 05:19] LABS: BASOPHILS % (AUTO) 0.7 % (0.2-1.0); HEMATOCRIT 22.2 % (42.0-54.0); HEMOGLOBIN 7.6 g/dL (13.5-18.0); LYMPHOCYTES # (AUTO) 0.8 X10^3/uL (1.3-2.9); MEAN CORPUSCULAR HEMOGLOBIN 31.5 pg (27.0-34.0); MEAN CORPUSCULAR HGB CONC 34.5 g/dL (33.0-35.0); MEAN CORPUSCULAR VOLUME 91.3 fL (80.0-100.0); MEAN PLATELET VOLUME 7.5 fL (7.4-11.0); MONOCYTES # (AUTO) 0.2 x10^3/uL (0.3-0.8); MONOCYTES % (AUTO) 5.8 % (0.0-13.0); NEUTROPHILS % (AUTO) 66.5 % (42.0-75.0); PLATELET COUNT 64 X10^3/uL (150.0-450.0); RED BLOOD COUNT 2.43 X10^6/uL (4.7-6.0); RED CELL DISTRIBUTION WIDTH 24.5 % (11.6-16.5)
[2022-08-11] MEDS: MERREM VIAL 1 G in NS 100 ML IV 100 ML IV SCH ×3 (05:20→21:08)
[2022-08-11 05:26] LABS: ALANINE AMINOTRANSFERASE 19 Units/L (12-78); ALKALINE PHOSPHATASE 45 Units/L (46-116); ASPARTATE AMINO TRANSFERASE 12 Units/L (15-37); BLOOD UREA NITROGEN 22 mg/dL (7-18); CALCIUM 7.4 mg/dL (8.5-10.1); CARBON DIOXIDE 30.4 mmol/L (21-32); CHLORIDE 104 mmol/L (98-107); CREATININE 0.97 mg/dL (0.70-1.30); GLUCOSE 80 mg/dL (65-99); POTASSIUM 3.7 mmol/L (3.5-5.1); SODIUM 140 mmol/L (136-145); eGFR NON BLACK RACES > 60 (>60)
[2022-08-11] MEDS: SYNTHROID 88 mcg TAB PO SCH (05:33)
[2022-08-11 05:38] LABS: BAND NEUTROPHILS % 4 % (0-10)
[2022-08-11 05:39] LABS: ANISOCYTOSIS 3+; HYPOCHROMASIA SLIGHT; METAMYELOCYTES % 6; PLATELET MORPHOLOGY COMMENT NORMAL (NORMAL)
[2022-08-11 05:40] LABS: OVALOCYTES SLIGHT
[2022-08-11] MEDS ORDERED: GLUCOPHAGE ONE ×2 (08:40→17:27)
[2022-08-11] MEDS: PriLOSEC PO SCH (08:50)
[2022-08-11] MEDS: PROCARDIA XL PO SCH (08:50)
[2022-08-11] MEDS: LOPRESSOR TAB 25 MG PO SCH ×2 (08:51→20:31)
[2022-08-11] MEDS: PREDNISONE TAB 20 MG PO SCH (08:51)
[2022-08-11] MEDS: BRILINTA PO SCH ×2 (08:51→20:31)
[2022-08-11] MEDS: GLUCOPHAGE PO SCH ×2 (08:51→17:26)
[2022-08-11] MEDS: LR 1,000 ML IV 1,000 ML IV SCH ×2 (08:51→10:16)
[2022-08-11] MEDS: FLOMAX PO SCH (10:19)
[2022-08-11] MEDS ORDERED: FLOMAX ONE (10:19)
[2022-08-11] MEDS: ARIMIDEX PO SCH (20:31)
[2022-08-11] MEDS: SNACK - Diabetic Appropriate PO SCH (20:35)
[2022-08-11] MEDS: LANTUS SC SCH (20:35)
[2022-08-12] MEDS: LR 1,000 ML IV 1,000 ML IV SCH ×2 (03:53→13:29)
[2022-08-12] MEDS ORDERED: GLUCOPHAGE ONE ×2 (05:04→18:05)
[2022-08-12 05:24] LABS: BASOPHILS # (AUTO) 0.1 X10^3/uL (0.0-0.1); BASOPHILS % (AUTO) 1.7 % (0.2-1.0); EOSINOPHILS # (AUTO) 0.1 x10^3/uL (0.0-0.2); EOSINOPHILS % (AUTO) 2.6 % (0.9-2.9); HEMATOCRIT 23.5 % (42.0-54.0); LYMPHOCYTES # (AUTO) 0.3 X10^3/uL (1.3-2.9); LYMPHOCYTES % (AUTO) 10.1 % (21.0-51.0); MEAN CORPUSCULAR HEMOGLOBIN 31.4 pg (27.0-34.0); MEAN CORPUSCULAR HGB CONC 33.8 g/dL (33.0-35.0); MEAN PLATELET VOLUME 7.6 fL (7.4-11.0); MONOCYTES # (AUTO) 0.1 x10^3/uL (0.3-0.8); MONOCYTES % (AUTO) 2.2 % (0.0-13.0); NEUTROPHILS # (AUTO) 2.7 x10^3/uL (2.2-4.8); NEUTROPHILS % (AUTO) 83.4 % (42.0-75.0); PLATELET COUNT 66 X10^3/uL (150.0-450.0); RED BLOOD COUNT 2.53 X10^6/uL (4.7-6.0); WHITE BLOOD COUNT 3.2 X10^3/uL (3.6-10.0)
[2022-08-12 05:35] LABS: ALANINE AMINOTRANSFERASE 19 Units/L (12-78); ALKALINE PHOSPHATASE 57 Units/L (46-116); ASPARTATE AMINO TRANSFERASE 13 Units/L (15-37); BLOOD UREA NITROGEN 22 mg/dL (7-18); CALCIUM 7.4 mg/dL (8.5-10.1); CHLORIDE 105 mmol/L (98-107); CREATININE 1.02 mg/dL (0.70-1.30); GLUCOSE 105 mg/dL (65-99); POTASSIUM 3.4 mmol/L (3.5-5.1); SODIUM 142 mmol/L (136-145); TOTAL PROTEIN 5.2 g/dL (6.4-8.2); eGFR NON BLACK RACES > 60 (>60)
[2022-08-12] MEDS: MERREM VIAL 1 G in NS 100 ML IV 100 ML IV SCH ×3 (05:48→20:59)
[2022-08-12] MEDS: SYNTHROID 88 mcg TAB PO SCH (05:48)
[2022-08-12 05:58] LABS: BAND NEUTROPHILS % 8 % (0-10); METAMYELOCYTES % 6; MYELOCYTES % 2
[2022-08-12 06:07] LABS: HYPOCHROMASIA SLIGHT; PLATELET MORPHOLOGY COMMENT NORMAL (NORMAL); SMUDGE CELLS FEW
[2022-08-12 06:08] LABS: ANISOCYTOSIS 2+
[2022-08-12] MEDS: GLUCOPHAGE PO SCH ×2 (06:26→18:15)
[2022-08-12] MEDS: FLOMAX PO SCH (09:38)
[2022-08-12] MEDS: PROCARDIA XL PO SCH (09:38)
[2022-08-12] MEDS: PriLOSEC PO SCH (09:38)
[2022-08-12] MEDS: PREDNISONE TAB 20 MG PO SCH (09:38)
[2022-08-12] MEDS: LOPRESSOR TAB 25 MG PO SCH ×2 (09:38→20:56)
[2022-08-12] MEDS: BRILINTA PO SCH ×2 (09:39→20:56)
[2022-08-12] MEDS ORDERED: NS 500 ML IV 500 ML IV ONE ×2 (10:01→16:57)
[2022-08-12] MEDS ORDERED: PHARMACY CONSULT - VANCOMYCIN XX SCH (11:00)
[2022-08-12] MEDS: VANCOMYCIN IV *PREMIX 1 G/200 ML BAG 1 G/200 ML PIGGYBACK IV SCH ×2 (14:29→20:56)
[2022-08-12] MEDS: DIFLUCAN PO SCH (14:29)
--- NOTE | 2022-08-12 14:39 | RAD ---
HISTORYworsening left shift.br anemiaSTUDYCHEST, 1 [id number]/07/2023FINDINGSThe trachea is midline. The cardiac silhouette is unremarkable . The lungs are clear without focal infiltrate or effusion. The bony thorax is unremarkable.IMPRESSIONNo acute cardiopulmonary disease.Electronically signed by: CIRILO GERONIMO (Aug 12, 2022 14:38:31)
[2022-08-12] MEDS: K-DUR TAB 20 MEQ PO PRN (18:16)
[2022-08-12] MEDS ORDERED: LR 1,000 ML IV 1,000 ML IV ONE (19:40)
[2022-08-12] MEDS: LANTUS SC SCH (20:56)
[2022-08-12] MEDS: SNACK - Diabetic Appropriate PO SCH (20:56)
[2022-08-12] MEDS: ARIMIDEX PO SCH (20:56)
[2022-08-12] MEDS: NovoLIN R (or HumuLIN R) SUBCUT PRN (20:58)
[2022-08-12 21:19] LABS: HEMATOCRIT 31.3 % (42.0-54.0)
[2022-08-12 21:21] LABS: HEMOGLOBIN 10.5 g/dL (13.5-18.0)
[2022-08-12] MEDS: MAGNESIUM SULFATE 1 GRAM/100 mL PREMIX 1 G/100 ML BAG IV PRN ×2 (22:22→23:37)
[2022-08-13] MEDS: MAGNESIUM SULFATE 1 GRAM/100 mL PREMIX 1 G/100 ML BAG IV PRN ×2 (00:52→02:43)
[2022-08-13] MEDS: LR 1,000 ML IV 1,000 ML IV SCH (02:45)
[2022-08-13] MEDS ORDERED: GLUCOPHAGE ONE (04:04)
[2022-08-13 05:19] LABS: BASOPHILS # (AUTO) 0.2 X10^3/uL (0.0-0.1); BASOPHILS % (AUTO) 4.2 % (0.2-1.0); EOSINOPHILS % (AUTO) 1.1 % (0.9-2.9); HEMATOCRIT 28.5 % (42.0-54.0); HEMOGLOBIN 9.7 g/dL (13.5-18.0); LYMPHOCYTES # (AUTO) 0.6 X10^3/uL (1.3-2.9); LYMPHOCYTES % (AUTO) 17.1 % (21.0-51.0); MEAN CORPUSCULAR HEMOGLOBIN 30.8 pg (27.0-34.0); MEAN CORPUSCULAR HGB CONC 34.2 g/dL (33.0-35.0); MEAN CORPUSCULAR VOLUME 90.1 fL (80.0-100.0); MEAN PLATELET VOLUME 7.8 fL (7.4-11.0); MONOCYTES # (AUTO) 0.1 x10^3/uL (0.3-0.8); MONOCYTES % (AUTO) 3.3 % (0.0-13.0); NEUTROPHILS # (AUTO) 2.7 x10^3/uL (2.2-4.8); NEUTROPHILS % (AUTO) 74.3 % (42.0-75.0); PLATELET COUNT 61 X10^3/uL (150.0-450.0); RED BLOOD COUNT 3.16 X10^6/uL (4.7-6.0); RED CELL DISTRIBUTION WIDTH 20.3 % (11.6-16.5); WHITE BLOOD COUNT 3.6 X10^3/uL (3.6-10.0)
[2022-08-13] MEDS: MERREM VIAL 1 G in NS 100 ML IV 100 ML IV SCH (05:32)
[2022-08-13 05:35] LABS: ALANINE AMINOTRANSFERASE 18 Units/L (12-78); ALBUMIN 2.1 g/dL (3.4-5.0); ALKALINE PHOSPHATASE 49 Units/L (46-116); ASPARTATE AMINO TRANSFERASE 11 Units/L (15-37); BLOOD UREA NITROGEN 19 mg/dL (7-18); CALCIUM 7.3 mg/dL (8.5-10.1); CARBON DIOXIDE 28.6 mmol/L (21-32); CHLORIDE 104 mmol/L (98-107); COR CA(FOR HYPOALB) 8.8 mg/dL (8.5-10.1); CREATININE 0.81 mg/dL (0.70-1.30); GLUCOSE 82 mg/dL (65-99); MAGNESIUM 2.6 mg/dL (2.0-2.9); POTASSIUM 3.6 mmol/L (3.5-5.1); SODIUM 140 mmol/L (136-145); TOTAL PROTEIN 5.3 g/dL (6.4-8.2); eGFR NON BLACK RACES > 60 (>60)
[2022-08-13 05:44] LABS: PLATELET MORPHOLOGY COMMENT NORMAL (NORMAL)
[2022-08-13 05:45] LABS: ANISOCYTOSIS 1+; OVALOCYTES SLIGHT
[2022-08-13] MEDS: SYNTHROID 88 mcg TAB PO SCH (06:03)
[2022-08-13] MEDS: GLUCOPHAGE PO SCH (06:03)
[2022-08-13 08:45] VITALS: TEMP 97; O2SAT 95
[2022-08-13] MEDS: PREDNISONE TAB 20 MG PO SCH (09:14)
[2022-08-13] MEDS: DIFLUCAN PO SCH (09:14)
[2022-08-13] MEDS: BRILINTA PO SCH (09:14)
[2022-08-13] MEDS: LOPRESSOR TAB 25 MG PO SCH (09:14)
[2022-08-13] MEDS: VANCOMYCIN IV *PREMIX 1 G/200 ML BAG 1 G/200 ML PIGGYBACK IV SCH (09:14)
[2022-08-13] MEDS: FLOMAX PO SCH (09:14)
[2022-08-13] MEDS: PROCARDIA XL PO SCH (09:14)
[2022-08-13] MEDS: PriLOSEC PO SCH (09:15)
[2022-08-13] MEDS: K-DUR TAB 20 MEQ PO PRN (09:15)
[2022-08-13] MEDS ORDERED: DEPO-TESTOSTERONE IM SCH (10:00)
[2022-08-13 12:15] VITALS: BP 165/75; PULSE 63
[2022-08-13] MEDS ORDERED: PHARMACY COMMENT IV ONE (20:30)
== END 2022-08-13 13:45 | disposition home or self-care (01) | DRG 195 ==
LOC: ICU
PROVIDERS: ADMIT Obstetrics & Gynecology Obstetrics; ATTEND Obstetrics & Gynecology Obstetrics
DX: R26.89 Other abnormalities of gait and mobility; J18.8 Other pneumonia, unspecified organism; E29.1 Testicular hypofunction; D46.Z Other myelodysplastic syndromes; E86.0 Dehydration; Z20.822 Contact with and (suspected) exposure to COVID-19

== ENCOUNTER 2023-03-18 10:05 | Observation (INO) ==
[2023-03-18 10:38] LABS: BILIRUBIN,URINE NEGATIVE (NEGATIVE); BLOOD/HEMOGLOBIN,URINE 3+ (NEGATIVE); GLUCOSE, URINE NEGATIVE (NEGATIVE); KETONES,URINE NEGATIVE (NEGATIVE); LEUKOCYTE ESTERASE ,URINE NEGATIVE (NEGATIVE); NITRITES,URINE NEGATIVE (NEGATIVE); PH,URINE 6.5 (5.0 - 8.0); PROTEIN,URINE 3+ (NEGATIVE); UROBILINOGEN,URINE NORMAL (NORMAL)
--- NOTE | 2023-03-18 10:38 | DR.CONMALE ---
HPI Time Seen Time Seen by Provider: 03/18/23 10:35 COVID-19 Coronavirus risk:travel/contact w/high risk person: No Has patient experienced Coronavirus symptoms: No Timing Onset of Chief Complaint: 03/13/23 PMH PMH Past Medical History: Yes Past Medical History: Anemia, Arthritis, Dyslipidemia, Gout and Hypertension Past Medical History Comment: MVS, Polychondritis Past Surgical History: Yes Surgical History: Other Past Surgical History Comment: Port placement, right knee, x2 stents Family History History of Family Medical Conditions: Yes Family Medical History: Diabetes Mellitus and Hypertension Social History Does patient currently use any type of tobacco product: No Have you used tobacco products in the last 12 months: No Type of Tobacco Use: None Does any household member use tobacco: No Alcohol Use: None Do you use any recreational Drugs:: No Lives With: Spouse Lives Where: Home Travel Risk Coronavirus risk:travel/contact w/high risk person: No Has patient experienced Coronavirus symptoms: No Infectious screening In the last 2 months have you had wt loss of >10#?: NO Have you had fever, night sweats or hemotysis?: No Have you traveled outside the country in the last 6 months?: No Isolation: Standard PE Vital Signs Vital Signs: Temp Pulse Resp BP Pulse Ox O2 Del Method 03/18/23 16:30 143/63 03/18/23 16:03 129/61 03/18/23 16:03 129/61 03/18/23 15:24 98 03/18/23 15:15 71 93 L 03/18/23 15:00 71 94 L 03/18/23 14:45 74 97 03/18/23 14:30 71 97 03/18/23 14:15 76 96 03/18/23 14:00 71 94 L 03/18/23 13:45 70 94 L 03/18/23 13:30 71 97 03/18/23 13:15 69 93 L 03/18/23 13:00 69 92 L 03/18/23 12:45 72 98 03/18/23 12:30 66 96 03/18/23 12:24 78 99 03/18/23 12:00 79 96 03/18/23 11:45 76 96 03/18/23 11:30 69 99 03/18/23 11:15 75 96 03/18/23 11:00 70 95 03/18/23 10:45 78 100 03/18/23 10:34 195 H 81 L 03/18/23 10:17 98.3 F 65 18 142/61 100 Room Air ROR Labs Reviewed 03/18/23 12:10 03/18/23 12:10 Laboratory: WBC 8.3 X10^3/uL (3.6-10.0) 03/18/23 12:10 RBC 2.85 X10^6/uL (4.7-6.0) L 03/18/23 12:10 Hgb 9.7 g/dL (13.5-18.0) L 03/18/23 12:10 Hct 28.6 % (42.0-54.0) L 03/18/23 12:10 MCV 100.5 fL (80.0-100.0) H 03/18/23 12:10 MCH 34.2 pg (27.0-34.0) H 03/18/23 12:10 MCHC 34.0 g/dL (33.0-35.0) 03/18/23 12:10 RDW 27.9 % (11.6-16.5) H 03/18/23 12:10 Plt Count 61 X10^3/uL (150.0-450.0) L 03/18/23 12:10 Plt Count Comment Decreased (ADEQUATE) 03/18/23 12:10 MPV 7.2 fL (7.4-11.0) L 03/18/23 12:10 Neut % (Auto) 76.6 % (42.0-75.0) H 03/18/23 12:10 Lymph % (Auto) 13.0 % (21.0-51.0) L 03/18/23 12:10 [place] % (Auto) 9.1 % (0.0-13.0) 03/18/23 12:10 Eos % (Auto) 0.2 % (0.9-2.9) L 03/18/23 12:10 Baso % (Auto) 1.1 % (0.2-1.0) H 03/18/23 12:10 Neut # (Auto) 6.3 x10^3/uL (2.2-4.8) H 03/18/23 12:10 Lymph # (Auto) 1.1 X10^3/uL (1.3-2.9) L 03/18/23 12:10 [place] # (Auto) 0.8 x10^3/uL (0.3-0.8) 03/18/23 12:10 Eos # (Auto) 0.0 x10^3/uL (0.0-0.2) 03/18/23 12:10 Baso # (Auto) 0.1 X10^3/uL (0.0-0.1) 03/18/23 12:10 Absolute Nucleated RBC 0.2 /100WBC 03/18/23 12:10 Plt Morphology Comment Normal (NORMAL) 03/18/23 12:10 RBC Morphology Abnormal (NORMAL) 03/18/23 12:10 Dimorphic RBCs Noted 03/18/23 12:10 Anisocytosis 3+ A 03/18/23 12:10 Sodium 134 mmol/L (136-145) L 03/18/23 12:10 Corrected Sodium TNP 03/18/23 12:10 Potassium 4.3 mmol/L (3.5-5.1) 03/18/23 12:10 Chloride 99 mmol/L (98-107) 03/18/23 12:10 Carbon Dioxide 32.1 mmol/L (21-32) H 03/18/23 12:10 BUN 22 mg/dL (7-18) H 03/18/23 12:10 Creatinine 1.10 mg/dL (0.70-1.30) 03/18/23 12:10 Est GFR (MDRD) Af Amer > 60 (>60) 03/18/23 12:10 Est GFR (MDRD) Non-Af > 60 (>60) 03/18/23 12:10 Glucose 83 mg/dL (65-99) 03/18/23 12:10 Calcium 8.1 mg/dL (8.5-10.1) L 03/18/23 12:10 Corrected Calcium 9.5 mg/dL (8.5-10.1) 03/18/23 12:10 Total Bilirubin 0.40 mg/dL (0.2-1.0) 03/18/23 12:10 AST 9 Units/L (15-37) L 03/18/23 12:10 ALT 11 Units/L (12-78) L 03/18/23 12:10 Alkaline Phosphatase 71 Units/L (46-116) 03/18/23 12:10 Total Protein 7.0 g/dL (6.4-8.2) 03/18/23 12:10 Albumin 2.2 g/dL (3.4-5.0) L 03/18/23 12:10 Globulin 4.8 g/dL (2.5-4.5) H 03/18/23 12:10 Albumin/Globulin Ratio 0.5 Ratio (1.1-2.1) L 03/18/23 12:10 Specimen Type Catherized urine 03/18/23 10:30 Urine Color Yellow (YELLOW) 03/18/23 10:30 Urine Appearance Clear (CLEAR) 03/18/23 10:30 Urine pH 6.5 (5.0 - 8.0) 03/18/23 10:30 Ur Specific [place] 1.010 (1.000-1.030) 03/18/23 10:30 Urine Protein 3+ (NEGATIVE) 03/18/23 10:30 Urine Glucose (UA) Negative (NEGATIVE) 03/18/23 10:30 Urine Ketones Negative (NEGATIVE) 03/18/23 10:30 Urine Blood 3+ (NEGATIVE) 03/18/23 10:30 Urine Nitrite Negative (NEGATIVE) 03/18/23 10:30 Urine Bilirubin Negative (NEGATIVE) 03/18/23 10:30 Urine Urobilinogen Normal (NORMAL) 03/18/23 10:30 Ur Leukocyte Esterase Negative (NEGATIVE) 03/18/23 10:30 Urine RBC 0-2 /HPF (0-3) 03/18/23 10:30 Urine WBC None seen /HPF (0-5) 03/18/23 10:30 Ur Squamous Epith Cells Rare /HPF (NEGATIVE) 03/18/23 10:30 Urine Bacteria Negative /HPF (NEGATIVE) 03/18/23 10:30 Ur Culture Indicated? No/not indicated 03/18/23 10:30 Opioid Opioid Risk Tool Age (Lily box if 16-45): No History of Preadolescent Sexual Abuse: No Total: 0 Total Score Risk Category: Low Risk Copyright: Tha CRUZ predicting aberrant behaviors Discharge Plan Diagnosis Discharge Problem: Abdominal pain, Constipation, External hemorrhoids, Acute urinary retention Discharge Plan Patient Disposition: HOME, SELF-CARE Condition: Stable Prescriptions: No Action Procrit 40,000 unit/mL Solution 60,000 unit subcut QWEEK metoprolol tartrate 25 mg Tablet 25 mg PO BID insulin glargine [Lantus Solostar U-100 Insulin] 100 unit/mL (3 mL) Insulin Pen 10 unit SUBCUT BID testosterone cypionate 200 mg/mL oil 200 mg IM QWEEK MDD 1 ml Qty: 10 2RF methadone 10 mg tablet 10 mg PO BID PRN (Reason: pain) folic acid 400 mcg tablet 400 mcg PO DAILY cholecalciferol (vitamin D3) 50 mcg (2,000 unit) tablet 50 mcg PO DAILY Discharge Comment: RETURN TO ER IF WORSE. Health Concerns: Post Hospitalization: new medications and changes needed to prevent readmission or further decline. Pt educated and given instructions on all concerns. Plan of Treatment: Continue with present treatment and follow up plan. Pt is to keep follow up appointment as instructed and take medications as ordered. Orders to Discharge Patient Discharge Orders: Discharge (Routine); Ordered 03/18/23 Ordered By: OXANA PRAJAPATI Transfer (Routine); Ordered 03/18/23 Ordered By: OXANA PRAJAPATI Follow ups/Referrals Follow ups/Referrals: BARRY LOUIS [Primary Care Provider] - 2 days LILY SAMANO [CONSULTING PHYSICIAN] - 1 day Instructions Instructions: Abdominal Pain, Adult, Constipation, Adult, Hemorrhoids, Acute Urinary Retention, Male Stand Alone Forms: Post Hospital Follow Up Care
[2023-03-18 10:41] LABS: APPEARANCE,URINE CLEAR (CLEAR); COLOR,URINE YELLOW (YELLOW)
[2023-03-18 10:52] LABS: BACTERIA,URINE NEGATIVE /HPF (NEGATIVE); RBC,URINE 0-2 /HPF (0-3); SQUAMOUS EPITHELIAL CELL,UR RARE /HPF (NEGATIVE)
[2023-03-18 12:20] LABS: BASOPHILS # (AUTO) 0.1 X10^3/uL (0.0-0.1); BASOPHILS % (AUTO) 1.1 % (0.2-1.0); EOSINOPHILS % (AUTO) 0.2 % (0.9-2.9); HEMATOCRIT 28.6 % (42.0-54.0); HEMOGLOBIN 9.7 g/dL (13.5-18.0); LYMPHOCYTES # (AUTO) 1.1 X10^3/uL (1.3-2.9); MEAN CORPUSCULAR HEMOGLOBIN 34.2 pg (27.0-34.0); MEAN CORPUSCULAR VOLUME 100.5 fL (80.0-100.0); MEAN PLATELET VOLUME 7.2 fL (7.4-11.0); MONOCYTES # (AUTO) 0.8 x10^3/uL (0.3-0.8); MONOCYTES % (AUTO) 9.1 % (0.0-13.0); NEUTROPHILS # (AUTO) 6.3 x10^3/uL (2.2-4.8); NEUTROPHILS % (AUTO) 76.6 % (42.0-75.0); PLATELET COUNT 61 X10^3/uL (150.0-450.0); RED BLOOD COUNT 2.85 X10^6/uL (4.7-6.0); RED CELL DISTRIBUTION WIDTH 27.9 % (11.6-16.5); WHITE BLOOD COUNT 8.3 X10^3/uL (3.6-10.0)
[2023-03-18 12:29] LABS: ALANINE AMINOTRANSFERASE 11 Units/L (12-78); ALBUMIN 2.2 g/dL (3.4-5.0); ALKALINE PHOSPHATASE 71 Units/L (46-116); ASPARTATE AMINO TRANSFERASE 9 Units/L (15-37); BLOOD UREA NITROGEN 22 mg/dL (7-18); CALCIUM 8.1 mg/dL (8.5-10.1); CARBON DIOXIDE 32.1 mmol/L (21-32); CHLORIDE 99 mmol/L (98-107); COR CA(FOR HYPOALB) 9.5 mg/dL (8.5-10.1); GLUCOSE 83 mg/dL (65-99); POTASSIUM 4.3 mmol/L (3.5-5.1); SODIUM 134 mmol/L (136-145); eGFR NON BLACK RACES > 60 (>60)
[2023-03-18] MEDS ORDERED: DULCOLAX SUPPOSITORY 10 MG RECTAL ONE (12:30)
[2023-03-18 12:33] LABS: ANISOCYTOSIS 3+; PLATELET MORPHOLOGY COMMENT NORMAL (NORMAL)
[2023-03-18] MEDS ORDERED: DULCOLAX SUPPOSITORY 10 MG ONE (12:38)
--- NOTE | 2023-03-18 13:00 | CT ---
EXAM:ABDOMEN/PELVIS W/O CONHISTORY:IMPACTION;COMPARISON:April 2021TECHNIQUE:Multiple axial images of the abdomen and pelvis were obtained from the lung bases to the pubic symphysis without the administration of IV contrast. Dose reduction techniques including Automated Exposure Control (AEC) and adjustment of mA and kV were utilized.FINDINGS:The visualized portions of the lung bases are unremarkable . The liver, spleen, pancreas, kidneys, and adrenal glands are unremarkable in their noncontrast CT appearance. There is stable left renal cysts. The gallbladder is unremarkable in its CT appearance . No significant mesenteric lymphadenopathy or stranding can be observed. No free fluid or free air is seen within the abdomen. No bowel wall thickening or bowel dilatation is present. The colon demonstrates a large amount of stool with no significant diverticular disease. The appendix is not seen but there no secondary signs of appendicitis. The urinary bladder is decompressed with a Hale catheter in place with some locules of gas which is probably iatrogenic. Bony structures demonstrate stable degenerative changes and osteoarthrosis of the hips. There are new compression deformities at L2 and L3 which are not on the previous study. There is no significant paraspinous stranding to suggest an acute fracture however this could be followed up with MRI with STIR weighted imaging for assurance assess for any marrow edema. Bones are osteopenic.IMPRESSION:Large amount of colonic stool as above.Interval development of compression deformities at L2 and L3 which were not on the previous CT. Follow-up with MRI with STIR weighted imaging may be of benefit to assess for any marrow edema.THIS IS AN ELECTRONICALLY VERIFIED FINAL REPORT03/18/2023 12:57 PM - Electronically signed by Yinka Hamm MD
[2023-03-18] MEDS ORDERED: COLACE CAP 100 MG PO ONE (17:28)
[2023-03-18] MEDS: LINZESS PO SCH (19:15)
[2023-03-19 06:37] LABS: ALANINE AMINOTRANSFERASE 7 Units/L (12-78); ALBUMIN 1.8 g/dL (3.4-5.0); ALKALINE PHOSPHATASE 64 Units/L (46-116); ASPARTATE AMINO TRANSFERASE 9 Units/L (15-37); BLOOD UREA NITROGEN 22 mg/dL (7-18); CALCIUM 7.9 mg/dL (8.5-10.1); CARBON DIOXIDE 29.6 mmol/L (21-32); CHLORIDE 100 mmol/L (98-107); COR CA(FOR HYPOALB) 9.7 mg/dL (8.5-10.1); CREATININE 1.06 mg/dL (0.70-1.30); GLUCOSE 64 mg/dL (65-99); MAGNESIUM 1.6 mg/dL (2.0-2.9); POTASSIUM 3.9 mmol/L (3.5-5.1); SODIUM 135 mmol/L (136-145); TOTAL PROTEIN 6.2 g/dL (6.4-8.2); eGFR NON BLACK RACES > 60 (>60)
[2023-03-19 06:41] LABS: BASOPHILS # (AUTO) 0.1 X10^3/uL (0.0-0.1); BASOPHILS % (AUTO) 1.9 % (0.2-1.0); EOSINOPHILS % (AUTO) 0.3 % (0.9-2.9); HEMATOCRIT 23.4 % (42.0-54.0); LYMPHOCYTES # (AUTO) 1.1 X10^3/uL (1.3-2.9); LYMPHOCYTES % (AUTO) 22.7 % (21.0-51.0); MEAN CORPUSCULAR HEMOGLOBIN 34.4 pg (27.0-34.0); MEAN CORPUSCULAR HGB CONC 34.3 g/dL (33.0-35.0); MEAN CORPUSCULAR VOLUME 100.3 fL (80.0-100.0); MEAN PLATELET VOLUME 7.2 fL (7.4-11.0); MONOCYTES # (AUTO) 0.6 x10^3/uL (0.3-0.8); MONOCYTES % (AUTO) 12.5 % (0.0-13.0); NEUTROPHILS % (AUTO) 62.6 % (42.0-75.0); PLATELET COUNT 45 X10^3/uL (150.0-450.0); RED BLOOD COUNT 2.33 X10^6/uL (4.7-6.0); WHITE BLOOD COUNT 4.8 X10^3/uL (3.6-10.0)
[2023-03-19 07:34] LABS: ANISOCYTOSIS 3+; BAND NEUTROPHILS % 6 % (0-10); BASOPHILS % (MANUAL) 1 % (0-1); PLATELET MORPHOLOGY COMMENT NORMAL (NORMAL)
[2023-03-19] MEDS ORDERED: CITROMA PO ONE (09:21)
[2023-03-19] MEDS ORDERED: METHADONE HCL PO PRN (09:22)
[2023-03-19] MEDS ORDERED: DEPO-TESTOSTERONE IM SCH (10:00)
[2023-03-19 11:18] VITALS: BMI 22.2
[2023-03-19] MEDS: LINZESS PO SCH (12:55)
[2023-03-19] MEDS: FOLIC ACID TAB 1 MG PO SCH (12:56)
[2023-03-19] MEDS: LOPRESSOR TAB 25 MG PO SCH ×2 (12:57→20:35)
[2023-03-19] MEDS: COLACE CAP 100 MG PO SCH ×2 (12:57→20:35)
[2023-03-19] MEDS: VITAMIN D3 25 mcg (1,000 UNITS) PO SCH (12:57)
[2023-03-19] MEDS: LANTUS SC SCH (20:40)
--- NOTE | 2023-03-20 06:35 | RAD ---
EXAM:KUBHISTORY:ConstipationCOMPARISON: .br.br.br.br.br.br and nonobstructive. Moderate stool is present in the right colon. No abnormal masses or abnormal calcifications are identified. Regional skeleton appears intact.IMPRESSION:Nonspecific, nonobstructive bowel gas patternModerate stool right colonTHIS IS AN ELECTRONICALLY VERIFIED FINAL REPORT03/20/2023 6:31 AM - Electronically signed by Horacio Morales MD
[2023-03-20 06:40] LABS: BASOPHILS # (AUTO) 0.1 X10^3/uL (0.0-0.1); BASOPHILS % (AUTO) 1.4 % (0.2-1.0); EOSINOPHILS % (AUTO) 0.6 % (0.9-2.9); HEMATOCRIT 25.9 % (42.0-54.0); HEMOGLOBIN 8.8 g/dL (13.5-18.0); LYMPHOCYTES # (AUTO) 1.4 X10^3/uL (1.3-2.9); LYMPHOCYTES % (AUTO) 29.9 % (21.0-51.0); MEAN CORPUSCULAR HEMOGLOBIN 34.3 pg (27.0-34.0); MEAN CORPUSCULAR HGB CONC 34.1 g/dL (33.0-35.0); MEAN CORPUSCULAR VOLUME 100.5 fL (80.0-100.0); MEAN PLATELET VOLUME 7.6 fL (7.4-11.0); MONOCYTES # (AUTO) 0.5 x10^3/uL (0.3-0.8); MONOCYTES % (AUTO) 10.4 % (0.0-13.0); NEUTROPHILS # (AUTO) 2.6 x10^3/uL (2.2-4.8); NEUTROPHILS % (AUTO) 57.7 % (42.0-75.0); PLATELET COUNT 53 X10^3/uL (150.0-450.0); RED BLOOD COUNT 2.58 X10^6/uL (4.7-6.0); RED CELL DISTRIBUTION WIDTH 27.7 % (11.6-16.5); WHITE BLOOD COUNT 4.6 X10^3/uL (3.6-10.0)
--- NOTE | 2023-03-20 06:49 | RAD ---
EXAM:Right ribs four viewsHISTORY:Right chest deformityCOMPARISON:NoneFINDINGS:Examina tion of the right ribs demonstrated no evidence for fracture, lytic, or blastic lesion. No pleural effusion or pneumothorax identified.IMPRESSION:Intact normal-appearing right ribsTHIS IS AN ELECTRONICALLY VERIFIED FINAL REPORT03/20/2023 6:45 AM - Electronically signed by Horacio Morales MD
[2023-03-20 07:17] LABS: ALANINE AMINOTRANSFERASE < 6 Units/L (12-78); ALKALINE PHOSPHATASE 75 Units/L (46-116); ASPARTATE AMINO TRANSFERASE 9 Units/L (15-37); BLOOD UREA NITROGEN 22 mg/dL (7-18); CALCIUM 8.3 mg/dL (8.5-10.1); CARBON DIOXIDE 28.4 mmol/L (21-32); CHLORIDE 97 mmol/L (98-107); COR CA(FOR HYPOALB) 9.9 mg/dL (8.5-10.1); CREATININE 1.12 mg/dL (0.70-1.30); GLUCOSE 85 mg/dL (65-99); SODIUM 132 mmol/L (136-145); TOTAL PROTEIN 6.9 g/dL (6.4-8.2); eGFR NON BLACK RACES > 60 (>60)
[2023-03-20 07:41] LABS: PLATELET MORPHOLOGY COMMENT NORMAL (NORMAL)
[2023-03-20 07:42] LABS: ANISOCYTOSIS 3+; POIKILOCYTOSIS 1+
[2023-03-20] MEDS ORDERED: NovoLIN R (or HumuLIN R) SUBCUT PRN (07:51)
[2023-03-20 08:43] VITALS: BP 106/59; PULSE 67; RESP 18; TEMP 98.2; O2SAT 97
[2023-03-20] MEDS: COLACE CAP 100 MG PO SCH (09:25)
[2023-03-20] MEDS: VITAMIN D3 25 mcg (1,000 UNITS) PO SCH (09:25)
[2023-03-20] MEDS: LOPRESSOR TAB 25 MG PO SCH (09:26)
[2023-03-20] MEDS: FOLIC ACID TAB 1 MG PO SCH (09:26)
[2023-03-20] MEDS: LINZESS PO SCH (09:26)
[2023-03-20] MEDS: LANTUS SC SCH (09:28)
[2023-03-20] MEDS ORDERED: PROCRIT or EPOGEN VIAL 40,000 UNITS SC SCH (10:40)
[2023-03-20] MEDS ORDERED: SNACK - Diabetic Appropriate PO SCH (20:00)
== END 2023-03-20 12:20 | disposition home or self-care (01) ==
LOC: MED/SURG 10:05 → ER 10:05 → MED/SURG 17:24
PROVIDERS: ADMIT Obstetrics & Gynecology Obstetrics; ATTEND Obstetrics & Gynecology Obstetrics
DX: E78.5 Hyperlipidemia, unspecified; K59.09 Other constipation; R33.8 Other retention of urine; E11.65 Type 2 diabetes mellitus with hyperglycemia; M95.4 Acquired deformity of chest and rib; R11.2 Nausea with vomiting, unspecified; I10 Essential (primary) hypertension; R26.89 Other abnormalities of gait and mobility; R10.84 Generalized abdominal pain

== ENCOUNTER 2024-05-29 11:42 | Inpatient (IN) ==
[2024-05-29] MEDS ORDERED: PHARMACY CONSULT - VANCOMYCIN XX SCH (12:02)
[2024-05-29 12:34] LABS: BASOPHILS # (AUTO) 0.1 X10^3/uL (0.0-0.1); EOSINOPHILS # (AUTO) 0.1 x10^3/uL (0.0-0.2); EOSINOPHILS % (AUTO) 1.1 % (0.9-2.9); LYMPHOCYTES # (AUTO) 0.9 X10^3/uL (1.3-2.9); NEUTROPHILS # (AUTO) 5.4 x10^3/uL (2.2-4.8); RED BLOOD COUNT 2.55 X10^6/uL (4.7-6.0)
[2024-05-29 12:39] LABS: BASOPHILS % (AUTO) 0.9 % (0.2-1.0); HEMATOCRIT 24.8 % (42.0-54.0); HEMOGLOBIN 8.3 g/dL (13.5-18.0); LYMPHOCYTES % (AUTO) 12.5 % (21.0-51.0); MEAN CORPUSCULAR HEMOGLOBIN 32.4 pg (27.0-34.0); MEAN CORPUSCULAR HGB CONC 33.4 g/dL (33.0-35.0); MEAN CORPUSCULAR VOLUME 97.1 fL (80.0-100.0); MEAN PLATELET VOLUME 7.2 fL (7.4-11.0); MONOCYTES % (AUTO) 13.1 % (0.0-13.0); NEUTROPHILS % (AUTO) 72.4 % (42.0-75.0); PLATELET COUNT 73 X10^3/uL (150.0-450.0); RED CELL DISTRIBUTION WIDTH 23.8 % (11.6-16.5); WHITE BLOOD COUNT 7.5 X10^3/uL (3.6-10.0)
[2024-05-29 12:51] LABS: ALANINE AMINOTRANSFERASE 26 Units/L (12-78); ALBUMIN 2.3 g/dL (3.4-5.0); ALKALINE PHOSPHATASE 66 Units/L (46-116); ASPARTATE AMINO TRANSFERASE 18 Units/L (15-37); BLOOD UREA NITROGEN 23 mg/dL (7-18); CALCIUM 8.8 mg/dL (8.5-10.1); CARBON DIOXIDE 30.3 mmol/L (21-32); CHLORIDE 101 mmol/L (98-107); COR CA(FOR HYPOALB) 10.2 mg/dL (8.5-10.1); COR NA(FOR HYPERGLY) 140 mmol/L (136-145); CREATININE 1.07 mg/dL (0.70-1.30); GLUCOSE 122 mg/dL (65-99); POTASSIUM 4.1 mmol/L (3.5-5.1); SODIUM 139 mmol/L (136-145); TOTAL PROTEIN 6.6 g/dL (6.4-8.2); eGFR NON BLACK RACES > 60 (>60)
[2024-05-29 13:01] VITALS: BMI 24.0
[2024-05-29 13:09] LABS: BAND NEUTROPHILS % 5 % (0-10)
[2024-05-29 13:10] LABS: ANISOCYTOSIS 2+; PLATELET MORPHOLOGY COMMENT NORMAL (NORMAL)
[2024-05-29] MEDS: LR 1,000 ML IV 1,000 ML IV SCH (13:54)
[2024-05-29] MEDS: VANCOMYCIN IV *PREMIX 1 G/200 ML BAG 1 G/200 ML PIGGYBACK IV SCH (13:54)
--- NOTE | 2024-05-29 14:00 | RAD ---
EXAM:CHEST, PA/LAT ADULTHISTORY:FEVER/ANEMIA;COMPARISON:No relevant prior studies were available for comparison at the time of interpretation.TECHNIQUE:CHEST, PA/LAT ADULTFINDINGS:Chest:Lines and tubes: Left-sided implanted port with catheter tip in satisfactory positionMediastinum: Cardiomegaly.Pulmonary vessels: Pulmonary vasculature is prominent.Lung rascon: Patchy opacities are seenPleura: No effusion. No pneumothorax.Bones and soft tissues: No acute osseous or soft tissue abnormality.IMPRESSION:1. Heart failure versus pneumoniaTHIS IS AN ELECTRONICALLY VERIFIED FINAL REPORT05/29/2024 1:57 PM - Electronically signed by Abdullahi Sneed MD
[2024-05-29] MEDS: NS 250 ML IV 250 ML IV ONE (14:04)
[2024-05-29] MEDS: MERREM VIAL 1 G in NS 100 ML IV 100 ML IV SCH (14:04)
[2024-05-29] MEDS: LOPRESSOR TAB 50 MG PO SCH (17:23)
--- NOTE | 2024-05-29 18:10 | EKG ---
Test Reason : elevated HR Blood Pressure : */* mmHG Vent. Rate : 173 BPM Atrial Rate : * BPM P-R Int : * ms QRS Dur : 74 ms QT Int : 238 ms P-R-T Axes : * 9 172 degrees QTc Int : 403 ms Atrial fibrillation with rapid ventricular response Abnormal ECG When compared with ECG of 18-MAY-2023 12:34, Atrial fibrillation has replaced Sinus rhythm Vent. rate has increased BY [address] now depressed in Anterolateral leads T wave inversion now evident in Lateral leads Confirmed by Casimiro Brennan MD ([id number]) on 05/30/2024 6:25:00 AM Referred By: Confirmed By: Casimiro Brennan MD
[2024-05-29 18:19] LABS: ABG BASE EXCESS 2.2 mmol/L (-2.0-2.0); ABG HCO3 26.5 mmol/L (22-26)
[2024-05-29 18:21] LABS: ABG ALLEN TEST POS
[2024-05-29] MEDS: OFIRMEV IV 1000 MG VIAL 1,000 MG/100 ML VIAL IV PRN (18:28)
[2024-05-29] MEDS: SNACK - Diabetic Appropriate PO SCH (20:43)
[2024-05-29] MEDS: COLACE CAP 100 MG PO SCH (20:43)
[2024-05-29] MEDS: GLUCOPHAGE XR 24-HR PO SCH (20:59)
[2024-05-29] MEDS: NovoLIN R (or HumuLIN R) SUBCUT PRN (21:00)
[2024-05-29 22:23] LABS: BILIRUBIN,URINE NEGATIVE (NEGATIVE); BLOOD/HEMOGLOBIN,URINE 3+ (NEGATIVE); GLUCOSE, URINE NEGATIVE (NEGATIVE); KETONES,URINE NEGATIVE (NEGATIVE); LEUKOCYTE ESTERASE ,URINE NEGATIVE (NEGATIVE); NITRITES,URINE NEGATIVE (NEGATIVE); PROTEIN,URINE 2+ (NEGATIVE); UROBILINOGEN,URINE NORMAL (NORMAL)
[2024-05-29 22:28] LABS: APPEARANCE,URINE CLEAR (CLEAR); BACTERIA,URINE TRACE /HPF (NEGATIVE); COLOR,URINE YELLOW (YELLOW); RBC,URINE 0-2 /HPF (0-3); SQUAMOUS EPITHELIAL CELL,UR RARE /HPF (NEGATIVE)
[2024-05-30 00:58] LABS: CREATINE KINASE < 7 Units/L (39-308)
[2024-05-30] MEDS: ZOFRAN INJ 4 MG VIAL IVP PRN (03:09)
[2024-05-30 05:21] LABS: BASOPHILS # (AUTO) 0.1 X10^3/uL (0.0-0.1); BASOPHILS % (AUTO) 0.5 % (0.2-1.0); EOSINOPHILS # (AUTO) 0.2 x10^3/uL (0.0-0.2); EOSINOPHILS % (AUTO) 1.8 % (0.9-2.9); HEMATOCRIT 22.1 % (42.0-54.0); HEMOGLOBIN 7.4 g/dL (13.5-18.0); LYMPHOCYTES # (AUTO) 0.4 X10^3/uL (1.3-2.9); LYMPHOCYTES % (AUTO) 3.9 % (21.0-51.0); MEAN CORPUSCULAR HEMOGLOBIN 32.5 pg (27.0-34.0); MEAN CORPUSCULAR HGB CONC 33.6 g/dL (33.0-35.0); MEAN CORPUSCULAR VOLUME 96.7 fL (80.0-100.0); MEAN PLATELET VOLUME 7.2 fL (7.4-11.0); MONOCYTES # (AUTO) 0.5 x10^3/uL (0.3-0.8); MONOCYTES % (AUTO) 4.5 % (0.0-13.0); NEUTROPHILS # (AUTO) 9.1 x10^3/uL (2.2-4.8); NEUTROPHILS % (AUTO) 89.3 % (42.0-75.0); PLATELET COUNT 63 X10^3/uL (150.0-450.0); RED BLOOD COUNT 2.28 X10^6/uL (4.7-6.0); RED CELL DISTRIBUTION WIDTH 24.1 % (11.6-16.5); WHITE BLOOD COUNT 10.2 X10^3/uL (3.6-10.0)
[2024-05-30 05:24] LABS: ANISOCYTOSIS 3+; PLATELET MORPHOLOGY COMMENT NORMAL (NORMAL)
[2024-05-30 05:28] LABS: ALANINE AMINOTRANSFERASE 23 Units/L (12-78); ALBUMIN 1.9 g/dL (3.4-5.0); ALKALINE PHOSPHATASE 65 Units/L (46-116); ASPARTATE AMINO TRANSFERASE 17 Units/L (15-37); BLOOD UREA NITROGEN 22 mg/dL (7-18); CALCIUM 7.9 mg/dL (8.5-10.1); CARBON DIOXIDE 28.5 mmol/L (21-32); CHLORIDE 100 mmol/L (98-107); COR CA(FOR HYPOALB) 9.6 mg/dL (8.5-10.1); CREATININE 1.12 mg/dL (0.70-1.30); GLUCOSE 94 mg/dL (65-99); POTASSIUM 3.7 mmol/L (3.5-5.1); SODIUM 136 mmol/L (136-145); TOTAL PROTEIN 5.5 g/dL (6.4-8.2); eGFR NON BLACK RACES > 60 (>60)
[2024-05-30] MEDS: SYNTHROID 88 mcg TAB PO SCH (06:21)
[2024-05-30] MEDS: NORCO 7.5/325 MG TAB ONE (17:26)
[2024-05-30] MEDS: NORCO 7.5/325 MG TAB PO ONE (17:38)
[2024-05-30] MEDS: MOTRIN TAB 800 MG PO PRN (19:05)
[2024-05-30] MEDS: MOTRIN TAB 800 MG PO ONE (19:15)
[2024-05-30] MEDS: PHARMACY COMMENT IV NR (21:20)
[2024-05-31] MEDS: NS 250 ML IV 250 ML IV ONE (01:01)
[2024-05-31] MEDS: D50W ABBOJECT SYR IV ONE ×3 (05:32→08:55)
[2024-05-31 08:49] LABS: BASOPHILS % (AUTO) 0.4 % (0.2-1.0); EOSINOPHILS # (AUTO) 0.4 x10^3/uL (0.0-0.2); EOSINOPHILS % (AUTO) 3.4 % (0.9-2.9); HEMATOCRIT 29.9 % (42.0-54.0); HEMOGLOBIN 10.1 g/dL (13.5-18.0); LYMPHOCYTES # (AUTO) 0.3 X10^3/uL (1.3-2.9); MEAN CORPUSCULAR HEMOGLOBIN 31.6 pg (27.0-34.0); MEAN CORPUSCULAR HGB CONC 33.8 g/dL (33.0-35.0); MEAN CORPUSCULAR VOLUME 93.4 fL (80.0-100.0); MEAN PLATELET VOLUME 7.3 fL (7.4-11.0); MONOCYTES # (AUTO) 0 x10^3/uL (0.3-0.8); MONOCYTES % (AUTO) 0.4 % (0.0-13.0); NEUTROPHILS # (AUTO) 9.6 x10^3/uL (2.2-4.8); NEUTROPHILS % (AUTO) 92.8 % (42.0-75.0); PLATELET COUNT 44 X10^3/uL (150.0-450.0); RED CELL DISTRIBUTION WIDTH 24.1 % (11.6-16.5); WHITE BLOOD COUNT 10.4 X10^3/uL (3.6-10.0)
[2024-05-31 08:57] LABS: ALANINE AMINOTRANSFERASE 24 Units/L (12-78); ALBUMIN 1.9 g/dL (3.4-5.0); ALKALINE PHOSPHATASE 74 Units/L (46-116); ASPARTATE AMINO TRANSFERASE 23 Units/L (15-37); BLOOD UREA NITROGEN 25 mg/dL (7-18); CALCIUM 7.8 mg/dL (8.5-10.1); CARBON DIOXIDE 26.5 mmol/L (21-32); CHLORIDE 99 mmol/L (98-107); COR CA(FOR HYPOALB) 9.5 mg/dL (8.5-10.1); CREATININE 1.09 mg/dL (0.70-1.30); GLUCOSE 83 mg/dL (65-99); POTASSIUM 4.1 mmol/L (3.5-5.1); SODIUM 134 mmol/L (136-145); TOTAL PROTEIN 5.7 g/dL (6.4-8.2); eGFR NON BLACK RACES > 60 (>60)
[2024-05-31 09:34] LABS: ANISOCYTOSIS 3+; PLATELET MORPHOLOGY COMMENT NORMAL (NORMAL)
[2024-05-31] MEDS ORDERED: DEPO-TESTOSTERONE IM ONE (10:17)
[2024-05-31] MEDS: SOLU-Cortef INJ IVP SCH (10:52)
--- NOTE | 2024-05-31 11:43 | CT ---
EXAM:CHEST W/O CONHISTORY:pneumonia with fever after agressive tx;COMPARISON:Two views of the chest May 29, 2024TECHNIQUE:CT of the chest without contrastFINDINGS:Sensitivity is reduced without intravenous contrast. The thoracic aorta tapers normally with multifocal atherosclerotic calcifications. Extensive coronary atherosclerotic calcifications are visible in the LAD and the circumflex as well as the RCA. No pericardial effusion.Shotty mediastinal lymph nodes without enlargement by size criteria. There is elevation of the left hemidiaphragm. Limited visualization of the upper abdomen demonstrates atrophy of the pancreas. Fluid and food material are present in the stomach. There is a central venous port present with tip overlying superior vena cava.Lung windows demonstrate underlying interstitial lung disease. There are superimposed bilateral mild interstitial and airspace infiltrates which could represent mild pulmonary edema or infectious process. No pneumothorax. No pleural effusion. There are mild superior endplate compression deformities in the lumbar spine, age indeterminate.IMPRESSION:Chronic underlying interstitial lung disease with mild bilateral superimposed interstitial and airspace infiltrates. Pulmonary edema or developing pneumonia could have this CT appearance. Clinical correlation is needed.All CT scans at this facility use dose modulation, iterative reconstruction, and/or weight based dosing when appropriate to reduce radiation dose to as low as reasonably achievable.THIS IS AN ELECTRONICALLY VERIFIED FINAL REPORT05/31/2024 11:40 AM - Electronically signed by Troy Randolph MD
[2024-05-31] MEDS ORDERED: NS 500 ML IV 500 ML IV ONE (13:42)
[2024-05-31] MEDS: NS 500 ML IV 500 ML IV PRN (13:58)
[2024-05-31 19:15] LABS: HEMATOCRIT 29.5 % (42.0-54.0); HEMOGLOBIN 10.2 g/dL (13.5-18.0)
[2024-06-01 05:22] LABS: BASOPHILS % (AUTO) 0.9 % (0.2-1.0); EOSINOPHILS % (AUTO) 0.4 % (0.9-2.9); HEMATOCRIT 27.6 % (42.0-54.0); HEMOGLOBIN 9.4 g/dL (13.5-18.0); LYMPHOCYTES # (AUTO) 0.3 X10^3/uL (1.3-2.9); LYMPHOCYTES % (AUTO) 6.1 % (21.0-51.0); MEAN CORPUSCULAR HEMOGLOBIN 31.3 pg (27.0-34.0); MEAN CORPUSCULAR HGB CONC 34.1 g/dL (33.0-35.0); MEAN PLATELET VOLUME 7.7 fL (7.4-11.0); MONOCYTES # (AUTO) 0.4 x10^3/uL (0.3-0.8); MONOCYTES % (AUTO) 7.4 % (0.0-13.0); NEUTROPHILS # (AUTO) 4.4 x10^3/uL (2.2-4.8); NEUTROPHILS % (AUTO) 85.2 % (42.0-75.0); PLATELET COUNT 33 X10^3/uL (150.0-450.0); RED CELL DISTRIBUTION WIDTH 21.1 % (11.6-16.5); WHITE BLOOD COUNT 5.1 X10^3/uL (3.6-10.0)
[2024-06-01 05:40] LABS: ALANINE AMINOTRANSFERASE 21 Units/L (12-78); ALBUMIN 1.6 g/dL (3.4-5.0); ALKALINE PHOSPHATASE 64 Units/L (46-116); ASPARTATE AMINO TRANSFERASE 24 Units/L (15-37); BLOOD UREA NITROGEN 26 mg/dL (7-18); CALCIUM 7.9 mg/dL (8.5-10.1); CARBON DIOXIDE 24.4 mmol/L (21-32); CHLORIDE 102 mmol/L (98-107); COR CA(FOR HYPOALB) 9.8 mg/dL (8.5-10.1); COR NA(FOR HYPERGLY) 136 mmol/L (136-145); CREATININE 0.89 mg/dL (0.70-1.30); GLUCOSE 133 mg/dL (65-99); POTASSIUM 3.8 mmol/L (3.5-5.1); SODIUM 135 mmol/L (136-145); TOTAL PROTEIN 5.1 g/dL (6.4-8.2); eGFR NON BLACK RACES > 60 (>60)
[2024-06-01 06:01] LABS: ANISOCYTOSIS 1+; OVALOCYTES PRESENT; PLATELET MORPHOLOGY COMMENT NORMAL (NORMAL)
[2024-06-01] MEDS ORDERED: DUONEB 0.5 MG/3 MG (3 mL) NEB SCH (09:00)
[2024-06-01] MEDS: PULMICORT NEB TX 0.5 MG NEB SCH (09:05)
[2024-06-01] MEDS: XOPENEX 1.25 MG/3 ML NEBULE NEB SCH (09:05)
[2024-06-01] MEDS: PROTONIX INJ 40 MG VIAL 80 MG in NS 100 ML IV 80 ML IV SCH (09:47)
[2024-06-01] MEDS: PROCRIT or EPOGEN VIAL 10,000 UNITS SC ONE (09:48)
[2024-06-01] MEDS: CYTOTEC PO SCH (13:40)
[2024-06-01 21:08] LABS: CREATININE 0.98 mg/dL (0.70-1.30)
[2024-06-01 21:19] LABS: VANCOMYCIN,TROUGH 26.9 ug/mL (15-20)
[2024-06-02 04:06] VITALS: O2SAT 100
[2024-06-02 05:07] LABS: BASOPHILS % (AUTO) 1.5 % (0.2-1.0); EOSINOPHILS % (AUTO) 0.5 % (0.9-2.9); HEMATOCRIT 27.4 % (42.0-54.0); HEMOGLOBIN 9.2 g/dL (13.5-18.0); LYMPHOCYTES # (AUTO) 0.3 X10^3/uL (1.3-2.9); MEAN CORPUSCULAR HEMOGLOBIN 31.1 pg (27.0-34.0); MEAN CORPUSCULAR HGB CONC 33.7 g/dL (33.0-35.0); MEAN CORPUSCULAR VOLUME 92.1 fL (80.0-100.0); MEAN PLATELET VOLUME 7.2 fL (7.4-11.0); MONOCYTES # (AUTO) 0.2 x10^3/uL (0.3-0.8); MONOCYTES % (AUTO) 9.4 % (0.0-13.0); NEUTROPHILS # (AUTO) 1.8 x10^3/uL (2.2-4.8); NEUTROPHILS % (AUTO) 75.6 % (42.0-75.0); PLATELET COUNT 37 X10^3/uL (150.0-450.0); RED BLOOD COUNT 2.98 X10^6/uL (4.7-6.0); RED CELL DISTRIBUTION WIDTH 20.6 % (11.6-16.5); WHITE BLOOD COUNT 2.4 X10^3/uL (3.6-10.0)
[2024-06-02 05:20] LABS: ALANINE AMINOTRANSFERASE 20 Units/L (12-78); ALBUMIN 1.6 g/dL (3.4-5.0); ALKALINE PHOSPHATASE 60 Units/L (46-116); ASPARTATE AMINO TRANSFERASE 20 Units/L (15-37); BLOOD UREA NITROGEN 28 mg/dL (7-18); CALCIUM 7.9 mg/dL (8.5-10.1); CARBON DIOXIDE 23.7 mmol/L (21-32); CHLORIDE 103 mmol/L (98-107); COR CA(FOR HYPOALB) 9.8 mg/dL (8.5-10.1); COR NA(FOR HYPERGLY) 137 mmol/L (136-145); CREATININE 0.86 mg/dL (0.70-1.30); GLUCOSE 128 mg/dL (65-99); POTASSIUM 3.5 mmol/L (3.5-5.1); SODIUM 136 mmol/L (136-145); TOTAL PROTEIN 4.9 g/dL (6.4-8.2); eGFR NON BLACK RACES > 60 (>60)
[2024-06-02 05:48] LABS: BAND NEUTROPHILS % 2 % (0-10)
[2024-06-02 05:49] LABS: ANISOCYTOSIS 1+; OVALOCYTES PRESENT; PLATELET MORPHOLOGY COMMENT NORMAL (NORMAL)
[2024-06-02] MEDS ORDERED: CONSULT PHARMACY - POTASSIUM & MAGNESIUM XX SCH (07:00)
[2024-06-02] MEDS: K-DUR TAB 20 MEQ PO SCH (08:14)
[2024-06-02 09:04] LABS: CREATININE 1.12 mg/dL (0.70-1.30)
[2024-06-02 09:09] LABS: VANCOMYCIN,TROUGH 21.6 ug/mL (15-20)
[2024-06-02] MEDS: VIBRAMYCIN PO SCH (10:12)
[2024-06-02] MEDS ORDERED: VANCOMYCIN IV *PREMIX 750 mg/150 ML BAG 750 MG/150 ML PIGGYBACK IV SCH (21:00)
[2024-06-02] MEDS: BUTT CREAM (COMPOUND) TOP PRN (22:30)
[2024-06-03 05:13] LABS: BASOPHILS % (AUTO) 1.5 % (0.2-1.0); HEMOGLOBIN 9.3 g/dL (13.5-18.0); MEAN PLATELET VOLUME 7.6 fL (7.4-11.0); MONOCYTES # (AUTO) 0.3 x10^3/uL (0.3-0.8)
[2024-06-03 05:24] LABS: EOSINOPHILS % (AUTO) 0.9 % (0.9-2.9); HEMATOCRIT 27.6 % (42.0-54.0); LYMPHOCYTES # (AUTO) 0.4 X10^3/uL (1.3-2.9); LYMPHOCYTES % (AUTO) 21.5 % (21.0-51.0); MEAN CORPUSCULAR HEMOGLOBIN 31.2 pg (27.0-34.0); MEAN CORPUSCULAR HGB CONC 33.7 g/dL (33.0-35.0); MEAN CORPUSCULAR VOLUME 92.7 fL (80.0-100.0); MONOCYTES % (AUTO) 15.8 % (0.0-13.0); NEUTROPHILS % (AUTO) 60.3 % (42.0-75.0); PLATELET COUNT 37 X10^3/uL (150.0-450.0); RED BLOOD COUNT 2.98 X10^6/uL (4.7-6.0); RED CELL DISTRIBUTION WIDTH 21.5 % (11.6-16.5)
[2024-06-03 05:25] LABS: ALANINE AMINOTRANSFERASE 21 Units/L (12-78); ALBUMIN 1.6 g/dL (3.4-5.0); ALKALINE PHOSPHATASE 51 Units/L (46-116); ASPARTATE AMINO TRANSFERASE 16 Units/L (15-37); BLOOD UREA NITROGEN 24 mg/dL (7-18); CALCIUM 7.8 mg/dL (8.5-10.1); CARBON DIOXIDE 24.5 mmol/L (21-32); CHLORIDE 104 mmol/L (98-107); COR CA(FOR HYPOALB) 9.7 mg/dL (8.5-10.1); COR NA(FOR HYPERGLY) 137 mmol/L (136-145); CREATININE 0.83 mg/dL (0.70-1.30); GLUCOSE 130 mg/dL (65-99); MAGNESIUM 1.3 mg/dL (2.0-2.9); POTASSIUM 3.4 mmol/L (3.5-5.1); SODIUM 136 mmol/L (136-145); TOTAL PROTEIN 4.9 g/dL (6.4-8.2); eGFR NON BLACK RACES > 60 (>60)
[2024-06-03 05:56] LABS: WHITE BLOOD COUNT 1.7 X10^3/uL (3.6-10.0)
[2024-06-03 05:57] LABS: ANISOCYTOSIS 1+; BAND NEUTROPHILS % 6 % (0-10); PLATELET MORPHOLOGY COMMENT NORMAL (NORMAL)
[2024-06-03 05:58] LABS: OVALOCYTES PRESENT
[2024-06-03] MEDS ORDERED: CONSULT PHARMACY - POTASSIUM & MAGNESIUM XX SCH (07:00)
[2024-06-03 08:35] VITALS: BP 162/81
[2024-06-03 08:50] VITALS: TEMP 98.1
[2024-06-03] MEDS ORDERED: MAG-OX TAB PO SCH (09:00)
[2024-06-03 09:10] VITALS: PULSE 62; RESP 25
[2024-06-03] MEDS: K-DUR TAB 20 MEQ PO SCH (09:13)
[2024-06-03] MEDS: LR 1,000 ML IV 1,000 ML with MAGNESIUM SULFATE 50% INJ VIAL 1 G IV SCH (09:29)
[2024-06-04] MEDS ORDERED: PHARMACY COMMENT IV NR (08:00)
== END 2024-06-03 11:05 | disposition home or self-care (01) | DRG 564 ==
LOC: MED/SURG 11:46 → ICU 19:12
PROVIDERS: ADMIT Obstetrics & Gynecology Obstetrics; ATTEND Obstetrics & Gynecology Obstetrics
DX: I48.91 Unspecified atrial fibrillation; M94.1 Relapsing polychondritis; J18.8 Other pneumonia, unspecified organism; R94.31 Abnormal electrocardiogram [ECG] [EKG]; E87.6 Hypokalemia; Z03.818 Encounter for observation for suspected exposure to other biological agents ruled out; I49.01 Ventricular fibrillation; R26.89 Other abnormalities of gait and mobility; R50.9 Fever, unspecified; E83.42 Hypomagnesemia; D46.Z Other myelodysplastic syndromes; M62.81 Muscle weakness (generalized); R60.0 Localized edema

== ENCOUNTER 2025-01-29 11:15 | Inpatient (IN) ==
[2025-01-29 11:59] LABS: MEAN PLATELET VOLUME 7.2 fL (7.4-11.0); RED CELL DISTRIBUTION WIDTH 27.7 % (11.6-16.5)
[2025-01-29 12:10] LABS: COR CA(FOR HYPOALB) 8.7 mg/dL (8.5-10.1); COR NA(FOR HYPERGLY) 143 mmol/L (136-145); CREATININE 0.99 mg/dL (0.70-1.30); eGFR NON BLACK RACES > 60 (>60)
[2025-01-29 12:22] LABS: BAND NEUTROPHILS % 3 % (0-10); PLATELET MORPHOLOGY COMMENT NORMAL (NORMAL)
--- NOTE | 2025-01-29 12:53 | DR.GENAD ---
HPI Time Seen Time Seen by Provider: 01/29/25 12:50 PCP Primary Care Physician: louis Complaint/Symptoms Chief Complaint Doctors Comments: This patient here for generalized weakness. 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 He was supposed to get typed crossed and screen for 2 units of packed red blood cells since he does have an antibiotic 2 days ago but he did not make that appointment at the lab and he is here because of the generalized weakness according to his . Chief Complaint:: Patient c.o of generalized weakness over the past couple of days now and x3 days ago he had a fall but denies loc he states his was there to ease him down to the floor without him hurting anything. Also c.o of sob with exerction. Patient denies any pain. COVID-19 Coronavirus risk:travel/contact w/high risk person: No Has patient experienced Coronavirus symptoms: No Source History Provided: Patient Mode of Arrival Mode of Arrival: EMS Timing Onset of Chief Complaint: 01/26/25 PMH PMH Past Medical History: Yes Past Medical History: Anemia, Arthritis, Diabetes, Dyslipidemia, Gout, Hypertension, Hypothyroidism and Cancer Past Medical History Comment: MDS (blood cancer) Past Surgical History: Yes Surgical History: Angioplasty/Stents, Ortho Surgery and Other Family History History of Family Medical Conditions: Yes Family Medical History: Heart Failure and Hypertension Social History Does patient currently use any type of tobacco product: No Have you used tobacco products in the last 12 months: No Type of Tobacco Use: None Does any household member use tobacco: No Alcohol Use: None Do you use any recreational Drugs:: No Lives With: Family Lives Where: Home Travel Risk Coronavirus risk:travel/contact w/high risk person: No Has patient experienced Coronavirus symptoms: No Infectious screening In the last 2 months have you had wt loss of >10#?: NO Have you had fever, night sweats or hemotysis?: No Have you traveled outside the country in the last 6 months?: No Isolation: Standard PE Vital Signs Vitals: Vital Signs Temperature 97.9 F Pulse Rate 76 Respiratory Rate 16 Blood Pressure 148/70 O2 Sat by Pulse Oximetry 98 ROR Labs Reviewed 01/29/25 11:49 01/29/25 11:49 Laboratory: WBC 3.5 X10^3/uL (3.6-10.0) L 01/29/25 11:49 RBC 2.28 X10^6/uL (4.7-6.0) L 01/29/25 11:49 Hgb 7.3 g/dL (13.5-18.0) L 01/29/25 11:49 Hct 22.2 % (42.0-54.0) L 01/29/25 11:49 MCV 97.5 fL (80.0-100.0) 01/29/25 11:49 MCH 32.1 pg (27.0-34.0) 01/29/25 11:49 MCHC 32.9 g/dL (33.0-35.0) L 01/29/25 11:49 RDW 27.7 % (11.6-16.5) H 01/29/25 11:49 Plt Count 32 X10^3/uL (150.0-450.0) L 01/29/25 11:49 Plt Count Comment Decreased (ADEQUATE) 01/29/25 11:49 MPV 7.2 fL (7.4-11.0) L 01/29/25 11:49 Neut % (Auto) 78.4 % (42.0-75.0) H 01/29/25 11:49 Lymph % (Auto) 8.8 % (21.0-51.0) L 01/29/25 11:49 [place] % (Auto) 12.4 % (0.0-13.0) 01/29/25 11:49 Eos % (Auto) 0.1 % (0.9-2.9) L 01/29/25 11:49 Baso % (Auto) 0.3 % (0.2-1.0) 01/29/25 11:49 Neut # (Auto) 2.8 x10^3/uL (2.2-4.8) 01/29/25 11:49 Lymph # (Auto) 0.3 X10^3/uL (1.3-2.9) L 01/29/25 11:49 [place] # (Auto) 0.4 x10^3/uL (0.3-0.8) 01/29/25 11:49 Eos # (Auto) 0.0 x10^3/uL (0.0-0.2) 01/29/25 11:49 Baso # (Auto) 0.0 X10^3/uL (0.0-0.1) 01/29/25 11:49 Absolute Nucleated RBC 0.2 /100WBC 01/29/25 11:49 Total Counted 100 01/29/25 11:49 Neutrophils % (Manual) 83 % (39-76) H 01/29/25 11:49 Band Neutrophils % 3 % (0-10) 01/29/25 11:49 Lymphocytes % (Manual) 10 % (13-43) L 01/29/25 11:49 Monocytes % (Manual) 4 % (4-9) 01/29/25 11:49 Plt Morphology Comment Normal (NORMAL) 01/29/25 11:49 RBC Morphology Abnormal (NORMAL) 01/29/25 11:49 Anisocytosis 3+ A 01/29/25 11:49 Sodium 141 mmol/L (136-145) 01/29/25 11:49 Corrected Sodium 143 mmol/L (136-145) 01/29/25 11:49 Potassium 3.2 mmol/L (3.5-5.1) L 01/29/25 11:49 Chloride 105 mmol/L (98-107) 01/29/25 11:49 Carbon Dioxide 28.1 mmol/L (21-32) 01/29/25 11:49 BUN 28 mg/dL (7-18) H 01/29/25 11:49 Creatinine 0.99 mg/dL (0.70-1.30) 01/29/25 11:49 Est GFR (MDRD) Af Amer > 60 (>60) 01/29/25 11:49 Est GFR (MDRD) Non-Af > 60 (>60) 01/29/25 11:49 Glucose 194 mg/dL (65-99) H 01/29/25 11:49 Calcium 7.3 mg/dL (8.5-10.1) L 01/29/25 11:49 Corrected Calcium 8.7 mg/dL (8.5-10.1) 01/29/25 11:49 Total Bilirubin 0.50 mg/dL (0.2-1.0) 01/29/25 11:49 AST 21 Units/L (15-37) 01/29/25 11:49 ALT 61 Units/L (12-78) 01/29/25 11:49 Alkaline Phosphatase 125 Units/L (46-116) H 01/29/25 11:49 Total Protein 5.3 g/dL (6.4-8.2) L 01/29/25 11:49 Albumin 2.2 g/dL (3.4-5.0) L 01/29/25 11:49 Globulin 3.1 g/dL (2.5-4.5) 01/29/25 11:49 Albumin/Globulin Ratio 0.7 Ratio (1.1-2.1) L 01/29/25 11:49 Opioid Opioid Risk Tool Age (Phani box if 16-45): No History of Preadolescent Sexual Abuse: No Total: 0 Total Score Risk Category: Low Risk Copyright: Tha CRUZ predicting aberrant behaviors Discharge Plan Discharge Plan Patient Disposition: HOME, SELF-CARE Condition: Stable Prescriptions: No Action ondansetron HCl 8 mg tablet 4 mg PO Q6H PRN prednisone 5 mg tablet 10 mg PO BID cyanocobalamin (vitamin B-12) 1,000 mcg tablet 1,000 mcg PO DAILY thiamine HCl (vitamin B1) 100 mg tablet 100 mg PO DAILY nifedipine 30 mg tablet extended release 30 mg PO QDAY folic acid 400 mcg tablet 400 mcg PO DAILY mycophenolate mofetil 500 mg tablet 500 mg PO BID gabapentin 100 mg capsule 200 mg PO BID rosuvastatin 40 mg tablet 40 mg PO HS metoprolol tartrate 25 mg tablet 25 mg PO BID metformin 1,000 mg tablet extended release 24hr 1,000 mg PO BID cholecalciferol (vitamin D3) 50 mcg (2,000 unit) tablet 50 mcg PO DAILY insulin glargine [Lantus Solostar U-100 Insulin] 100 unit/mL (3 mL) Insulin Pen 10 unit SUBCUT BID levothyroxine 88 mcg Tablet 88 mcg PO QDAY insulin lispro [Admelog U-100 Insulin lispro] 100 unit/mL Solution 1 sliding scale dose SUBCUT USEASDIRECTD Rx Instructions: 10 units TID adjusted per finger stick level sodium chloride 1 gram Tablet 1,000 mg PO DAILY olanzapine 7.5 mg Tablet 7.5 mg PO QDAY furosemide [Lasix] 20 mg tablet 20 mg PO QAM PRN Rx Instructions: 1-2 po qam prn fluid overload Health Concerns: Post Hospitalization: new medications and changes needed to prevent readmission or further decline. Pt educated and given instructions on all concerns. Plan of Treatment: Continue with present treatment and follow up plan. Pt is to keep follow up appointment as instructed and take medications as ordered. Follow ups/Referrals Follow ups/Referrals: BARRY LOUIS [Primary Care Provider, MEDICAL] - 3 days Instructions Stand Alone Forms: Find Help Web Site, Post Hospital Follow Up Care Print Language: IRISH
[2025-01-29] MEDS ORDERED: PATIENT'S HOME MEDICATION (Ondansetron Hcl 8 mg tablet) PO PRN (15:01)
[2025-01-29 15:53] VITALS: BMI 21.7
[2025-01-29] MEDS: NovoLIN R (or HumuLIN R) SUBCUT PRN (17:08)
[2025-01-29] MEDS: NEURONTIN CAP 100 MG PO SCH (20:33)
[2025-01-29] MEDS: GLUCOPHAGE XR 24-HR PO SCH (20:34)
[2025-01-29] MEDS: PREDNISONE TAB 5 MG PO SCH (20:34)
[2025-01-29] MEDS: LOPRESSOR TAB 25 MG PO SCH (20:34)
[2025-01-29] MEDS: SNACK - Diabetic Appropriate PO SCH (21:10)
[2025-01-30 05:24] LABS: MEAN PLATELET VOLUME 7.8 fL (7.4-11.0); RED CELL DISTRIBUTION WIDTH 27.5 % (11.6-16.5)
[2025-01-30 05:35] LABS: COR CA(FOR HYPOALB) 8.5 mg/dL (8.5-10.1); COR NA(FOR HYPERGLY) 142 mmol/L (136-145); CREATININE 0.90 mg/dL (0.70-1.30); eGFR NON BLACK RACES > 60 (>60)
[2025-01-30 05:52] LABS: PLATELET MORPHOLOGY COMMENT NORMAL (NORMAL)
[2025-01-30] MEDS ORDERED: CONSULT PHARMACY - POTASSIUM & MAGNESIUM XX SCH (06:00)
[2025-01-30] MEDS: SODIUM CHLORIDE 1 GM PO SCH (08:16)
[2025-01-30] MEDS: K-DUR TAB 20 MEQ PO SCH (08:16)
[2025-01-30] MEDS: MAG-OX TAB PO SCH (08:17)
--- NOTE | 2025-01-30 10:29 | DR.H&P ---
H&P History & Physical for Day of: H&P Date: 01/30/25 Chief Complaint Chief Complaint: weakness History of Present Illness History of Present Illness: Patient is a 79-year-old male with a past medical history of type 2 diabetes, hypertension, hypothyroidism, arthritis, anemia and myelodysplastic syndrome presented with generalized weakness and fatigue. He has a history of anemia requiring blood transfusions. He gets a blood transfusion every 2 to 4 weeks, last one end of December. ER workup included labs which showed hemoglobin 7.3 and Plt 32. He was admitted for further evaluation. He does have antibodies in his blood which takes a few days for the blood to be available for transfusion. He denies any active bleeding. He has had EGD/colonoscopy in the past. He does see Dr. Sorensen in [place]. Labs/imaging reviewed: - WBC 2.8 hemoglobin 7.2 platelet 30 potassium 3.5 creatinine 0.90 magnesium 1.7 Plan: Admit to [facility]. Transfused 2 units when available. Monitor for any active bleeding. Replace electrolytes as per protocol. Resume home medications. Change diet to ADA 1800-calorie. Ambulate as tolerated. Monitor a.m. labs and imaging. Time spent for clinical assessment, reviewing labs/imaging, physical exam, decision making and documentation greater than 45 mins. Past Medical History Past Medical History: Anemia, Arthritis, Diabetes, Dyslipidemia, Gout, Hypertension, Hypothyroidism and Cancer Past Surgical History Surgical History: Angioplasty/Stents, Ortho Surgery and Other Family History Family Medical History: Diabetes Mellitus, Heart Failure and Hypertension Social History Does patient currently use any type of tobacco product: No Have you used tobacco products in the last 12 months: No Type of Tobacco Use: None Does any household member use tobacco: No Alcohol Use: None Drug Use: None Medications Home Medications: Home Medications Medication Instructions Recorded Confirmed Type cyanocobalamin (vitamin B-12) 1,000 mcg PO DAILY 05/2101/29/25 History 1,000 mcg tablet folic acid 400 mcg tablet 400 mcg PO DAILY 05/22/23 History gabapentin 100 mg capsule 200 mg PO BID 05/22/2301/29 History metformin 1,000 mg tablet,extended 1,000 mg PO BID 01/29/25 History release 24hr (osmotic) metoprolol tartrate 25 mg tablet 25 mg PO BID 05/22/23 01/29/25 History mycophenolate mofetil 500 mg tablet 500 mg PO BID 05/0301/29/25 History nifedipine 30 mg tablet,extended 30 mg PO QDAY 4 01/29/25 History release ondansetron HCl 8 mg tablet 4 mg PO Q6H PRN 05/22/23 1 03/31/24 History prednisone 5 mg tablet 20 mg PO BID 05/22/23 History rosuvastatin 40 mg tablet 40 mg PO HS 05/22/23 5 History thiamine HCl (vitamin B1) 100 mg 100 mg PO DAILY 05/2101/29/25 History tablet levothyroxine 88 mcg tablet 88 mcg PO QDAY 05/29/24 History sodium chloride 1 gram tablet 1,000 mg PO DAILY 01/29/25 History acetaminophen 500 mg tablet 500 mg PO QID PRN 01/29/25 01/29/25 History cholecalciferol (vitamin D3) 50 50 mcg PO QDAY 5 01/29/25 History mcg (2,000 unit) tablet diphenhydramine HCl 25 mg tablet 25 mg PO QHS PRN 01/0301/29/25 History loperamide 2 mg capsule 2 mg PO BID PRN 01/29/25 History Allergies Allergies Allergy/AdvReac Type Severity Reaction Status Date / Time CLAUS Inhibitors Allergy Intermediate cough Verified 01/29/25 11:31 cyclosporine Allergy Verified 01/29/25 11:31 levofloxacin (From Levaquin) Allergy Verified 01/29/25 11:31 methotrexate Allergy Verified 01/29/25 11:31 piperacillin (From Zosyn) Allergy Verified 01/29/25 11:31 Sulfa (Sulfonamide Allergy Verified 01/29/25 11:31 Antibiotics) (SULFA) sulfamethoxazole (From Allergy Verified 01/29/25 11:31 Bactrim) tazobactam (From Zosyn) Allergy Verified 01/29/25 11:31 trimethoprim (From Bactrim) Allergy Verified 01/29/25 11:31 Labs 01/30/25 04:22 01/30/25 04:22 Labs: Laboratory WBC 2.8 X10^3/uL (3.6-10.0) L 01/30/25 04:22 RBC 2.24 X10^6/uL (4.7-6.0) L 01/30/25 04:22 Hgb 7.2 g/dL (13.5-18.0) L 01/30/25 04:22 Hct 21.8 % (42.0-54.0) L 01/30/25 04:22 MCV 97.3 fL (80.0-100.0) 01/30/25 04:22 MCH 32.3 pg (27.0-34.0) 01/30/25 04:22 MCHC 33.2 g/dL (33.0-35.0) 01/30/25 04:22 RDW 27.5 % (11.6-16.5) H 01/30/25 04:22 Plt Count 30 X10^3/uL (150.0-450.0) L 01/30/25 04:22 Plt Count Comment Decreased (ADEQUATE) 01/30/25 04:22 MPV 7.8 fL (7.4-11.0) 01/30/25 04:22 Neut % (Auto) 72.7 % (42.0-75.0) 01/30/25 04:22 Lymph % (Auto) 14.0 % (21.0-51.0) L 01/30/25 04:22 Phillips % (Auto) 13.1 % (0.0-13.0) H 01/30/25 04:22 Eos % (Auto) 0.1 % (0.9-2.9) L 01/30/25 04:22 Baso % (Auto) 0.1 % (0.2-1.0) L 01/30/25 04:22 Neut # (Auto) 2.0 x10^3/uL (2.2-4.8) L 01/30/25 04:22 Lymph # (Auto) 0.4 X10^3/uL (1.3-2.9) L 01/30/25 04:22 Phillips # (Auto) 0.4 x10^3/uL (0.3-0.8) 01/30/25 04:22 Eos # (Auto) 0.0 x10^3/uL (0.0-0.2) 01/30/25 04:22 Baso # (Auto) 0.0 X10^3/uL (0.0-0.1) 01/30/25 04:22 Absolute Nucleated RBC 0.7 /100WBC 01/30/25 04:22 Total Counted 100 01/30/25 04:22 Neutrophils % (Manual) 74 % (39-76) 01/30/25 04:22 Band Neutrophils % 3 % (0-10) 01/29/25 11:49 Lymphocytes % (Manual) 16 % (13-43) 01/30/25 04:22 Monocytes % (Manual) 10 % (4-9) H 01/30/25 04:22 Plt Morphology Comment Normal (NORMAL) 01/30/25 04:22 RBC Morphology Abnormal (NORMAL) 01/30/25 04:22 Poikilocytosis Slight A 01/30/25 04:22 Anisocytosis 3+ A 01/30/25 04:22 Ovalocytes Slight A 01/30/25 04:22 Sodium 140 mmol/L (136-145) 01/30/25 04:22 Corrected Sodium 142 mmol/L (136-145) 01/30/25 04:22 Potassium 3.5 mmol/L (3.5-5.1) 01/30/25 04:22 Chloride 105 mmol/L (98-107) 01/30/25 04:22 Carbon Dioxide 27.5 mmol/L (21-32) 01/30/25 04:22 BUN 32 mg/dL (7-18) H 01/30/25 04:22 Creatinine 0.90 mg/dL (0.70-1.30) 01/30/25 04:22 Est GFR (MDRD) Af Amer > 60 (>60) 01/30/25 04:22 Est GFR (MDRD) Non-Af > 60 (>60) 01/30/25 04:22 Glucose 189 mg/dL (65-99) H 01/30/25 04:22 POC Glucose (mg/dL) 172 mg/dL (65-99) H 01/30/25 05:32 Calcium 7.1 mg/dL (8.5-10.1) L 01/30/25 04:22 Corrected Calcium 8.5 mg/dL (8.5-10.1) 01/30/25 04:22 Magnesium 1.7 mg/dL (2.0-2.9) L 01/30/25 04:22 Total Bilirubin 0.40 mg/dL (0.2-1.0) 01/30/25 04:22 AST 31 Units/L (15-37) 01/30/25 04:22 ALT 66 Units/L (12-78) 01/30/25 04:22 Alkaline Phosphatase 134 Units/L (46-116) H 01/30/25 04:22 Total Protein 5.3 g/dL (6.4-8.2) L 01/30/25 04:22 Albumin 2.3 g/dL (3.4-5.0) L 01/30/25 04:22 Globulin 3.0 g/dL (2.5-4.5) 01/30/25 04:22 Albumin/Globulin Ratio 0.8 Ratio (1.1-2.1) L 01/30/25 04:22 Blood Type O POSITIVE 01/29/25 13:31 Antibody Screen Negative 01/29/25 13:31 Crossmatch See Detail 01/29/25 13:31 Review of Systems Constitutional: Weakness Eyes: No Symptoms Reported ENT: No Symptoms Reported Respiratory: No Symptoms Reported Cardiovascular: No Symptoms Reported Gastrointestinal: No Symptoms Reported Genitourinary: No Symptoms Reported Musculoskeletal: No Symptoms Reported Skin: Bruising and Ecchymosis Neurological: No Symptoms Reported Physical Exam Vital Signs: Vital Signs Temperature 97.8 F Temperature 97.8 F Pulse Rate [Radial] 67 Pulse Rate [Radial] 65 Respiratory Rate 20 Respiratory Rate 18 Blood Pressure [Left Arm] 146/71 Blood Pressure [Left Arm] 159/72 O2 Sat by Pulse Oximetry 98 O2 Sat by Pulse Oximetry 97 Oriented: Normal Respiratory: Diminished Throughout Cardiovascular: Normal Auscultation: Bowel Sounds: Normal Palpation: Normal Tenderness: Normal Skin: Bruising and Ecchymosis Musculoskeletal: Normal Psychiatric: Normal Mood Description: Calm Affect: Normal Speech Pattern: Clear and Appropriate Assessment/Plan (1) Anemia: Qualifiers: Anemia type: unspecified type Qualified Code(s): D64.9 - Anemia, unspecified Status: Acute (2) MDS (myelodysplastic syndrome): Status: Acute (3) Generalized weakness: Status: Acute (4) Hypertension: Qualifiers: Hypertension type: primary hypertension Qualified Code(s): I10 - Essential (primary) hypertension Status: Chronic (5) Gastroesophageal reflux disease: Qualifiers: Esophagitis presence: esophagitis presence not specified Qualified Code(s): K21.9 - Gastro-esophageal reflux disease without esophagitis Status: Chronic Review H&P Reviewed: Yes Patient was examined?: Yes
[2025-01-30] MEDS: BENADRYL CAP/TAB 25 MG PO ONE (23:17)
[2025-01-30] MEDS: TYLENOL 325 MG TAB PO ONE (23:17)
[2025-01-30] MEDS: NS 250 ML IV 250 ML IV ONE (23:24)
[2025-01-31] MEDS: NS 250 ML IV 250 ML IV ONE ×2 (04:36→19:49)
[2025-01-31] MEDS: LASIX IVP ONE ×2 (07:38→18:49)
[2025-01-31] MEDS ORDERED: CONSULT PHARMACY - POTASSIUM & MAGNESIUM XX SCH (08:00)
[2025-01-31 09:18] LABS: COR CA(FOR HYPOALB) 8.6 mg/dL (8.5-10.1); COR NA(FOR HYPERGLY) 142 mmol/L (136-145); CREATININE 1.02 mg/dL (0.70-1.30); eGFR NON BLACK RACES > 60 (>60)
[2025-01-31 09:23] LABS: MEAN PLATELET VOLUME 7.5 fL (7.4-11.0); RED CELL DISTRIBUTION WIDTH 24.4 % (11.6-16.5)
[2025-01-31 09:50] LABS: PLATELET MORPHOLOGY COMMENT NORMAL (NORMAL)
[2025-01-31] MEDS ORDERED: ZOFRAN TAB 4 MG PO PRN (09:55)
[2025-01-31] MEDS: MAGNESIUM SULFATE 1 GRAM/100 mL PREMIX 1 G/100 ML BAG IV SCH (10:36)
--- NOTE | 2025-01-31 10:59 | PCM.PROG ---
Progress Note Progress Note for Day of Date of Exam: 01/31/25 Subjective Subjective: Patient seen at bedside, no acute events overnight. He did receive 2 units of blood yesterday, hgb is 10.1 today. He reports feeling better but continues to have weakness. He has not been able to ambulate much without assistance. He states his is not able to take care of him at home. He is considering going to short-term rehab. Labs/imaging reviewed: - WBC 5.9 hemoglobin 10.1 platelet 25 potassium 3.6 creatinine 1.02 magnesium 1.5 Plan: Continue current treatment. Monitor hemoglobin. Replace electrolytes as per protocol. Replace magnesium. PT/OT consult. Will check with CM in the morning regarding SNF placement. Continue home medications. Monitor a.m. labs and imaging. Past Medical Family Social History Allergies: Allergies CLAUS Inhibitors Allergy (Intermediate, Verified 01/29/25 11:31) cough cyclosporine Allergy (Verified 01/29/25 11:31) levofloxacin (From Levaquin) Allergy (Verified 01/29/25 11:31) methotrexate Allergy (Verified 01/29/25 11:31) piperacillin (From Zosyn) Allergy (Verified 01/29/25 11:31) Sulfa (Sulfonamide Antibiotics) (SULFA) Allergy (Verified 01/29/25 11:31) sulfamethoxazole (From Bactrim) Allergy (Verified 01/29/25 11:31) tazobactam (From Zosyn) Allergy (Verified 01/29/25 11:31) trimethoprim (From Bactrim) Allergy (Verified 01/29/25 11:31) Vital Signs and I&O's Vital Signs: Vital Signs Temperature 97.9 F Pulse Rate [Radial] 63 Respiratory Rate 18 Blood Pressure [Left Arm] 158/71 O2 Sat by Pulse Oximetry 98 Intake and Output: Intake & Output 01/28/25 01/29/25 01/30/25 01/31/25 23:59 23:59 23:59 23:59 Intake Total 655 / 655 1330 / 1330 1402 / 1402 Output Total 200 / 200 1395 / 1395 300 / 300 Balance 455 / 455 -65 / -65 1102 / 1102 Physical Exam Oriented: Normal Throat: Normal Respiratory: Generalized and Diminished Cardiovascular: Normal Auscultation: Bowel Sounds: Normal Palpation: Normal Tenderness: Normal Skin: Bruising and Ecchymosis Musculoskeletal: Normal Psychiatric: Normal Mood Description: Calm Affect: Normal Speech Pattern: Clear and Appropriate Laboratory and Diagnostics 01/31/25 08:30 01/31/25 08:30 Labs: Laboratory WBC 5.9 X10^3/uL (3.6-10.0) 01/31/25 08:30 RBC 3.16 X10^6/uL (4.7-6.0) L 01/31/25 08:30 Hgb 10.1 g/dL (13.5-18.0) L D 01/31/25 08:30 Hct 30.0 % (42.0-54.0) L 01/31/25 08:30 MCV 94.8 fL (80.0-100.0) 01/31/25 08: MCH 32.0 pg (27.0-34.0) 01/31/25 08: MCHC 33.8 g/dL (33.0-35.0) 01/31/25 08: RDW 24.4 % (11.6-16.5) H 01/31/25 08:30 Plt Count 25 X10^3/uL (150.0-450.0) L 01/31/25 08:30 Plt Count Comment Decreased (ADEQUATE) 01/31/25 08: MPV 7.5 fL (7.4-11.0) 01/31/25 08:30 Neut % (Auto) 85.5 % (42.0-75.0) H 01/31/25 08:30 Lymph % (Auto) 7.9 % (21.0-51.0) L 01/31/25 08:30 Vance % (Auto) 6.3 % (0.0-13.0) 01/31/25 08:30 Eos % (Auto) 0.0 % (0.9-2.9) L 01/31/25 08:30 Baso % (Auto) 0.3 % (0.2-1.0) 01/31/25 08:30 Neut # (Auto) 5.1 x10^3/uL (2.2-4.8) H 01/31/25 08:30 Lymph # (Auto) 0.5 X10^3/uL (1.3-2.9) L 01/31/25 08:30 Vance # (Auto) 0.4 x10^3/uL (0.3-0.8) 01/31/25 08:30 Eos # (Auto) 0.0 x10^3/uL (0.0-0.2) 01/31/25 08:30 Baso # (Auto) 0.0 X10^3/uL (0.0-0.1) 01/31/25 08:30 Absolute Nucleated RBC 0.4 /100WBC 01/31/25 08:30 Total Counted 100 01/31/25 08:30 Neutrophils % (Manual) 84 % (39-76) H 01/31/25 08:30 Band Neutrophils % 3 % (0-10) 01/29/25 11:49 Lymphocytes % (Manual) 10 % (13-43) L 01/31/25 08:30 Monocytes % (Manual) 6 % (4-9) 01/31/25 08:30 Plt Morphology Comment Normal (NORMAL) 01/31/25 08:30 RBC Morphology Abnormal (NORMAL) 01/31/25 08:30 Poikilocytosis Slight A 01/30/25 04:22 Anisocytosis 3+ A 01/31/25 08:30 Ovalocytes Slight A 01/30/25 04:22 Sodium 140 mmol/L (136-145) 01/31/25 08:30 Corrected Sodium 142 mmol/L (136-145) 01/31/25 08:30 Potassium 3.6 mmol/L (3.5-5.1) 01/31/25 08:30 Chloride 107 mmol/L (98-107) 01/31/25 08:30 Carbon Dioxide 25.4 mmol/L (21-32) 01/31/25 08:30 BUN 30 mg/dL (7-18) H 01/31/25 08:30 Creatinine 1.02 mg/dL (0.70-1.30) 01/31/25 08:30 Est GFR (MDRD) Af Amer > 60 (>60) 01/31/25 08:30 Est GFR (MDRD) Non-Af > 60 (>60) 01/31/25 08:30 Glucose 202 mg/dL (65-99) H 01/31/25 08:30 POC Glucose (mg/dL) 197 mg/dL (65-99) H 01/31/25 05:38 Calcium 7.2 mg/dL (8.5-10.1) L 01/31/25 08:30 Corrected Calcium 8.6 mg/dL (8.5-10.1) 01/31/25 08:30 Magnesium 1.5 mg/dL (2.0-2.9) L 01/31/25 08:30 Total Bilirubin 1.10 mg/dL (0.2-1.0) H 01/31/25 08:30 AST 28 Units/L (15-37) 01/31/25 08:30 ALT 69 Units/L (12-78) 01/31/25 08:30 Alkaline Phosphatase 151 Units/L (46-116) H 01/31/25 08:30 Total Protein 5.3 g/dL (6.4-8.2) L 01/31/25 08:30 Albumin 2.3 g/dL (3.4-5.0) L 01/31/25 08:30 Globulin 3.0 g/dL (2.5-4.5) 01/31/25 08:30 Albumin/Globulin Ratio 0.8 Ratio (1.1-2.1) L 01/31/25 08:30 Blood Type O POSITIVE 01/29/25 13:31 Antibody Screen Negative 01/29/25 13:31 Antibody ID Referred Anti-E Anti-Henriquez A 01/29/25 13:31 Antibody ID Referred Anti-E Anti-Ehnriquez A 01/29/25 13:31 Crossmatch See Detail 01/29/25 13:31 Plan (1) Anemia: Status: Acute Qualifiers: Anemia type: unspecified type Qualified Code(s): D64.9 - Anemia, unspecified (2) MDS (myelodysplastic syndrome): Status: Acute (3) Generalized weakness: Status: Acute (4) Hypertension: Status: Chronic Qualifiers: Hypertension type: primary hypertension Qualified Code(s): I10 - Essential (primary) hypertension (5) Gastroesophageal reflux disease: Status: Chronic Qualifiers: Esophagitis presence: esophagitis presence not specified Qualified Code(s): K21.9 - Gastro-esophageal reflux disease without esophagitis (6) Hypomagnesemia: Status: Acute
[2025-01-31] MEDS: CATAPRES TAB 0.1 MG PO ONE (12:10)
--- NOTE | 2025-01-31 14:05 | EKG ---
Test Reason : hypertension protocol Blood Pressure : */* mmHG Vent. Rate : 66 BPM Atrial Rate : 66 BPM P-R Int : 124 ms QRS Dur : 96 ms QT Int : 414 ms P-R-T Axes : 19 11 31 degrees QTc Int : 434 ms Sinus rhythm with occasional premature ventricular complexes and premature atrial complexes Otherwise normal ECG When compared with ECG of 29-JUN-2024 11:35, premature ventricular complexes are now present premature atrial complexes are now present Confirmed by Casimiro Brennan MD ([id number]) on 02/01/2025 7:51:12 AM Referred By: Confirmed By: Casimiro Brennan MD
[2025-01-31] MEDS: CRESTOR TAB 10 MG PO SCH (20:36)
[2025-02-01 04:59] LABS: MEAN PLATELET VOLUME 7.5 fL (7.4-11.0); RED CELL DISTRIBUTION WIDTH 24.3 % (11.6-16.5)
[2025-02-01 05:06] LABS: COR CA(FOR HYPOALB) 8.8 mg/dL (8.5-10.1); COR NA(FOR HYPERGLY) 139 mmol/L (136-145); CREATININE 0.70 mg/dL (0.70-1.30); eGFR NON BLACK RACES > 60 (>60)
[2025-02-01 05:21] LABS: PLATELET MORPHOLOGY COMMENT NORMAL (NORMAL)
[2025-02-01] MEDS ORDERED: CONSULT PHARMACY - POTASSIUM & MAGNESIUM XX SCH (07:00)
[2025-02-01] MEDS ORDERED: MAG-OX TAB PO SCH (09:00)
[2025-02-01] MEDS ORDERED: IMODIUM CAP 2 MG PO PRN (09:00)
[2025-02-01] MEDS: K-DUR TAB 20 MEQ PO SCH (09:32)
[2025-02-01] MEDS: FOLIC ACID TAB 1 MG PO SCH (09:34)
[2025-02-01] MEDS: PREDNISONE TAB 5 MG PO SCH (09:44)
[2025-02-01] MEDS: ACTOS PO SCH (09:45)
[2025-02-01] MEDS: MAGNESIUM SULFATE 1 GRAM/100 mL PREMIX 1 G/100 ML BAG IV SCH (09:52)
[2025-02-01 12:58] VITALS: BP 138/67; PULSE 62; RESP 18; TEMP 98.2; O2SAT 97
[2025-02-01] MEDS: MAGNESIUM SULFATE 1 GRAM/100 mL PREMIX 1 G/100 ML BAG IV ONE (14:06)
[2025-02-02] MEDS ORDERED: VITAMIN D3 25 mcg (1,000 UNITS) PO SCH (09:00)
[2025-02-02] MEDS ORDERED: PREDNISONE TAB 20 MG PO SCH (09:00)
== END 2025-02-01 14:44 | disposition swing bed (61) | DRG 812 ==
LOC: ER 11:15 → MED/SURG 15:00
PROVIDERS: ADMIT Obstetrics & Gynecology Obstetrics; ATTEND Obstetrics & Gynecology Obstetrics
DX: E78.5 Hyperlipidemia, unspecified; E11.65 Type 2 diabetes mellitus with hyperglycemia; K21.9 Gastro-esophageal reflux disease without esophagitis; D72.828 Other elevated white blood cell count; D46.Z Other myelodysplastic syndromes; E83.42 Hypomagnesemia; E83.51 Hypocalcemia; E03.8 Other specified hypothyroidism; R53.1 Weakness; I10 Essential (primary) hypertension; R79.89 Other specified abnormal findings of blood chemistry; Z79.899 Other long term (current) drug therapy; E87.6 Hypokalemia

== ENCOUNTER 2025-02-01 14:45 | Inpatient (IN) ==
[2025-02-01 16:27] VITALS: BMI 22.6
[2025-02-01] MEDS: NovoLIN R (or HumuLIN R) SUBCUT PRN (17:29)
--- NOTE | 2025-02-01 17:47 | PT/OTEVAL ---
PT/OT OBJECTIVES - HISTORY Prescription: PT Consult Diagnosis: Anemia, Weakness, Deconditioning Precautions: Fall Risk, Hx MDS PMH: Anemia, Arthritis, Diabetes, Dyslipidemia, Gout, Hypertension, Hypothyroidism and Cancer, MDS (blood cancer), Angioplasty/Stents, Ortho Surgery Prior Level of Function: Assistance Required Other: Per patient report- he resides with his in a single story home with ramp to enter. PLOF: Pt reports that he has been requiring assistance from his for ADLs and IADLs and up until ~3 weeks ago was able to ambulate ~10ft with FWW and perform transfers with assist from . Pt primarily uses power wheelchair for mobility tasks. DME: Hospital bed, lift recliner, FWW, manual wheelchair, power wheelchair, BSC History of Present Illness: Mr. Santacruz is a 79 year old male who presented to ED on 01/29/2025 due to progressively worsening weakness and anemia. Pt was admitted and receiving blood transfusions; however, due to continued weakness pt unable to safely return home and was transitioned to swing bed program on 02/01/2025. - COGNITION Mental Status: Alert, Oriented, Name, Date, Place, Purpose Communication Status: Verbal, Hard of Hearing Ability to Follow Directions: 2 Step - PAIN No signs of pain Pain Scale: No Pain Comments: Abdomen Pain Scale: Moderate Back Comments: Sacrum Comments: - BED MOBILITY Rolling: Maximum Scooting: Maximum, x2 - TRANSFERS Supine to Sit: Maximum, x2 Sit to Stand: Maximum, x2 Sit or Stand Pivot: Not Tested Sit or Stand Pivot Comment: Unable - BALANCE Static Sitting: Good Standing: Total Assist Dynamic Sitting: Fair Standing: Not Tested - ROM Right LE ROM: WFL Muscle Tone: WFL - STRENGTH Right LE Strength Number: 2 Other comment: 2+/5 Left LE Strength Number: 2 Other comment: 2+/5 - GAIT Comments: Unable - TREATMENT Date: 02/01/25 Time: 15:00 Treatment Type: Evaluation Treatment Provided: Therapeutic Activities - TOTAL TREATMENT TIME Total Time: 45 - POST ASSESSMENT Post Assessment Comment: Pt was found supine in bed in room and agreeable to participation in PT services. Pt able to provide history and PLOF information. Pt without complaints of pain but states that he is very weak. Pt required max assist for rolling and max assist x 2 for transition from supine to sitting EOB. Once at EOB, pt able to maintain sitting balance with UE support. Pt instructed in and completed sit to stand transfers from EOB with max assist x 2. Standing tolerance of 1 minute as best. Pt unable to achieve upright standing posture and B knees very weak with occasional buckling noted. Pt performed total of 3 sit to stand transfers before fatigue and needing to return back to bed. Pt required max assist x 2 to return to supine position. Review of PT POC and goals with pt. Pt states he needs to be able to transfer to return home. - EXIT DISPOSITION Exit Position: BED Call light in reach: Yes Comments: All needs met. PT/OT ASSESSMENT - PT Problem List: Decreased Bed Mobility, Decreased Transfers, Decreased Balance, Decreased Safety, Decreased LE Strength - OT Problem List: Other - PT GOALS Short Term Goals Days: 10 Mobility: Pt will peform bed mobility tasks with mod assist Transfers: Pt will perform functional transfers with max assist Balance: Pt will increase dynamic sitting balance to good Rotary Bar Operator Goals Days: 20 Mobility: Pt will perform bed mobility tasks with touch assist Transfers: Pt will perform functional transfers with min assist Gait: Pt will ambulate 10ft with FWW with min assist Balance: Pt will increase static standing balance to fair ROM/Strength: Pt will increase BLE strength to 4/5 - PATIENT GOALS Patient/Family Goals: "I want to be able to move again" Goals Discussed with Patient/Family: Yes Rehabilitation Potential: Good to meet stated goals Justification for Potential: Facilitate highest level of function and safe discharge planning Weakness and Barriers: None - PLAN Suggested Treatment Plan: Bed Mobility Training, Therapeutic Activity, Neuro Re- education, Therapeutic Ex with HEP, Patient Education, Family Education, Other Other comment: Manual Therapy - FREQUENCY AND DURATION PT: 5x per week x 20 days Expected Continuation of Care at Discharge: Home Health, Skilled Care Facility, Determined on Progress
--- NOTE | 2025-02-01 18:44 | PT/OTEVAL ---
PT/OT OBJECTIVES - HISTORY Prescription: OT Consult Diagnosis: Anemia, Weakness, Deconditioning Precautions: Fall Risk, Hx MDS PMH: Anemia, Arthritis, Diabetes, Dyslipidemia, Gout, Hypertension, Hypothyroidism and Cancer, MDS (blood cancer), Angioplasty/Stents, Ortho Surgery Prior Level of Function: Assistance Required Other: Per pt report, pt lives with his in a 1 story home with a ramp. Pt requires A with ADLs and IADLs for the last couple of weeks. Pt has been able to amb ~ 10 feet. Pt c/o neuropathy in B LE. DME includes a lift chair, RW, hospital bed, w/c (power and standard) and BSC. History of Present Illness: Pt is a 79 year old male who presented to ED due to progressively worsening weakness and anemia. Pt was admitted and receiving blood transfusions; however, due to continued weakness pt unable to safely return home and was transitioned to swing bed program to improve (I) and safety. - COGNITION Mental Status: Alert, Oriented, Name, Purpose Communication Status: Verbal Ability to Follow Directions: 2 Step Affect: Calm - PAIN No signs of pain Pain Scale: No Pain Comments: Abdomen Pain Scale: Moderate Back Comments: Sacrum Comments: - BED MOBILITY Rolling: Maximum Scooting: Maximum, x2 - TRANSFERS Supine to Sit: Maximum, x2 Sit to Stand: Maximum, x2 Sit or Stand Pivot: Not Tested Sit or Stand Pivot Comment: Unable Toileting: Maximum Safety (requires cues for:): Hand Placement Precaution - ADL'S Lower Body ADL: Dependent Lower Body ADL: Unable to lift up feet. Toileting: Dependent Toileting Comment: Changed during standing - BALANCE Static Sitting: Good Standing: Total Assist Dynamic Sitting: Fair Standing: Not Tested - ROM Bilateral UE ROM: WFL - STRENGTH Bilateral UE Strength Number: 3 Other comment: B UE strength 3+/5 - TREATMENT Date: 02/01/25 Time: 15:00 Treatment Type: Evaluation Treatment Provided: Therapeutic Activities - TOTAL TREATMENT TIME Total Time: 45 - POST ASSESSMENT Post Assessment Comment: Pt was seen for skilled OT to assess CLOF. Pt was able to provide PLOF and hx. Pt was agreeable to participate with skilled OT. Pt supine to sit with max A x2. Pt completed 3 STS with max A x2. Pt given seated RBs for fatigue. Pt fatigues easily. Nurisng A with changing breif and hygiene while standing with dep. Pt was unable to take steps. Pt repositioned in bed with max A x2. Pt had all needs met and call light within reach. Pt demonstrates deficits with ADLs and ADL functional mobility. Pt would benefit from skilled OT services to address ADL deficits to facilitate highest level of ADL function needed for safe d/c planning. - EXIT DISPOSITION Exit Position: BED Call light in reach: Yes PT/OT ASSESSMENT - OT Problem List: Decreased Mobility ADL's, Decreased Dressing, Decreased Bathing, Decreased UE Strength - PT GOALS Short Term Goals Days: 10 Mobility: Pt will peform bed mobility tasks with mod assist Transfers: Pt will perform functional transfers with max assist Balance: Pt will increase dynamic sitting balance to good Route Relief Driver Goals Days: 20 Mobility: Pt will perform bed mobility tasks with touch assist Transfers: Pt will perform functional transfers with min assist Gait: Pt will ambulate 10ft with FWW with min assist Balance: Pt will increase static standing balance to fair ROM/Strength: Pt will increase BLE strength to 4/5 - OT GOALS Fdc Goals Days: 20 Mobility for ADL's: Pt to improve functional ADL transfers with min A and LRAD Dressing: Pt to improve LB dressing to min A with AE as needed Bathing: Pt to improve overall bathing to min A Upper Ext. Strength/Use: Pt to improve MMT in BUE by 2 grades Other: Pt to improve FAT to G Short Term Goals Days: 10 Mobility for ADL's: Pt to improve functional ADL transfers with mod A and LRAD Dressing: Pt to improve UB dressing to supv A Bathing: Pt to improve overall bathing to mod A Upper Ext. Strength/Use: Pt to improve MMT in BUE by 1 grade Other: Pt to improve FAT to F+ - PATIENT GOALS Patient/Family Goals: I want to be more (I) and move again. Goals Discussed with Patient/Family: Yes Rehabilitation Potential: Good to meet stated goals Justification for Potential: To facilitate highest level of ADL function needed for safe d/c planning Weakness and Barriers: None - PLAN Suggested Treatment Plan: Therapeutic Activity, Self Care Training, Neuro Re- education, Therapeutic Ex with HEP, Patient Education, Family Education - FREQUENCY AND DURATION OT: 5x a week x 20 days Expected Continuation of Care at Discharge: Home Health, Skilled Care Facility, Determined on Progress
[2025-02-01] MEDS: ZOFRAN TAB 4 MG PO PRN (21:06)
[2025-02-01] MEDS: SNACK - Diabetic Appropriate PO SCH (21:07)
[2025-02-01] MEDS: CRESTOR TAB 10 MG PO SCH (21:07)
[2025-02-01] MEDS: GLUCOPHAGE XR 24-HR PO SCH (21:07)
[2025-02-01] MEDS: MYCOPHENOLATE MOFETIL 500 MG PO SCH (21:08)
[2025-02-01] MEDS: NEURONTIN CAP 100 MG PO SCH (21:08)
[2025-02-01] MEDS: LOPRESSOR TAB 25 MG PO SCH (21:08)
[2025-02-02] MEDS: VITAMIN D3 25 mcg (1,000 UNITS) PO SCH (08:25)
[2025-02-02] MEDS: PREDNISONE TAB 20 MG PO SCH (08:25)
[2025-02-02] MEDS: FOLIC ACID TAB 1 MG PO SCH (08:25)
[2025-02-02] MEDS: ACTOS PO SCH (08:25)
[2025-02-03 06:22] LABS: MEAN PLATELET VOLUME 7.7 fL (7.4-11.0); RED CELL DISTRIBUTION WIDTH 24.1 % (11.6-16.5)
[2025-02-03 06:33] LABS: COR CA(FOR HYPOALB) 9.1 mg/dL (8.5-10.1); CREATININE 0.77 mg/dL (0.70-1.30); eGFR NON BLACK RACES > 60 (>60)
[2025-02-03 06:56] LABS: PLATELET MORPHOLOGY COMMENT NORMAL (NORMAL)
[2025-02-03] MEDS ORDERED: CONSULT PHARMACY - POTASSIUM & MAGNESIUM XX SCH ×2 (07:00)
[2025-02-03] MEDS: K-DUR TAB 20 MEQ PO SCH (08:31)
[2025-02-04] MEDS: IMODIUM CAP 2 MG PO PRN (20:45)
[2025-02-05 05:45] LABS: RED CELL DISTRIBUTION WIDTH 24.2 % (11.6-16.5)
[2025-02-05 05:54] LABS: MEAN PLATELET VOLUME 7.5 fL (7.4-11.0)
[2025-02-05 05:59] LABS: COR CA(FOR HYPOALB) 8.8 mg/dL (8.5-10.1); CREATININE 0.64 mg/dL (0.70-1.30); eGFR NON BLACK RACES > 60 (>60)
[2025-02-05 06:45] LABS: BAND NEUTROPHILS % 3 % (0-10); PLATELET MORPHOLOGY COMMENT NORMAL (NORMAL)
[2025-02-05] MEDS: VITAMIN B-12 PO SCH (09:33)
[2025-02-05] MEDS: PREDNISONE TAB 20 MG PO SCH (09:33)
[2025-02-05] MEDS: VITAMIN B-1 PO SCH (09:59)
[2025-02-05] MEDS ORDERED: GLUCOPHAGE XR 24-HR PO SCH (10:00)
[2025-02-06 07:17] LABS: MEAN PLATELET VOLUME 7.9 fL (7.4-11.0); RED CELL DISTRIBUTION WIDTH 24.1 % (11.6-16.5)
[2025-02-06 07:32] LABS: PLATELET MORPHOLOGY COMMENT NORMAL (NORMAL)
[2025-02-07 02:22] LABS: MEAN PLATELET VOLUME 7.4 fL (7.4-11.0); RED CELL DISTRIBUTION WIDTH 23.7 % (11.6-16.5)
[2025-02-07 02:35] LABS: BAND NEUTROPHILS % 4 % (0-10); PLATELET MORPHOLOGY COMMENT NORMAL (NORMAL)
[2025-02-07] MEDS ORDERED: DILAUDID INJ IVP PRN (04:13)
[2025-02-07] MEDS ORDERED: TYLENOL 325 MG TAB PO PRN (04:13)
[2025-02-07] MEDS ORDERED: ULTRAM PO PRN (04:13)
[2025-02-07] MEDS ORDERED: NORCO 5/325 MG TAB PO PRN (04:13)
[2025-02-07] MEDS: PROCRIT or EPOGEN VIAL 20,000 UNITS SC STA (09:45)
[2025-02-07] MEDS: COLACE CAP 100 MG PO SCH (09:51)
[2025-02-07] MEDS: DECADRON INJ IVP SCH (10:26)
[2025-02-07] MEDS ORDERED: BUTT CREAM (COMPOUND) TOP PRN (22:46)
[2025-02-08 05:11] LABS: RED CELL DISTRIBUTION WIDTH 23.2 % (11.6-16.5)
[2025-02-08 05:16] LABS: MEAN PLATELET VOLUME 7.9 fL (7.4-11.0)
[2025-02-08 05:20] LABS: COR CA(FOR HYPOALB) 8.6 mg/dL (8.5-10.1); CREATININE 0.72 mg/dL (0.70-1.30); eGFR NON BLACK RACES > 60 (>60)
[2025-02-08 05:49] LABS: PLATELET MORPHOLOGY COMMENT NORMAL (NORMAL)
[2025-02-08] MEDS: K-DUR TAB 20 MEQ PO SCH (08:56)
[2025-02-08] MEDS: CONSULT PHARMACY - POTASSIUM & MAGNESIUM XX SCH ×2 (08:58→20:34)
[2025-02-08] MEDS ORDERED: PROCRIT or EPOGEN VIAL 20,000 UNITS SC SCH (09:00)
[2025-02-08] MEDS: MAG-OX TAB PO SCH (11:35)
[2025-02-08] MEDS: NS 250 ML IV 250 ML IV ONE ×2 (12:50→16:54)
[2025-02-09 02:56] LABS: COR CA(FOR HYPOALB) 8.4 mg/dL (8.5-10.1); CREATININE 0.62 mg/dL (0.70-1.30); eGFR NON BLACK RACES > 60 (>60)
[2025-02-09 03:00] LABS: MEAN PLATELET VOLUME 8.2 fL (7.4-11.0); RED CELL DISTRIBUTION WIDTH 20.0 % (11.6-16.5)
[2025-02-09 03:10] LABS: BAND NEUTROPHILS % 5 % (0-10); METAMYELOCYTES % 1; MYELOCYTES % 2; PLATELET MORPHOLOGY COMMENT NORMAL (NORMAL)
[2025-02-09] MEDS: DECADRON INJ IVP SCH ×2 (09:55→10:00)
[2025-02-09] MEDS: PROCRIT or EPOGEN VIAL 20,000 UNITS SC SCH (11:52)
--- NOTE | 2025-02-09 14:51 | RAD ---
EXAM: CHEST, 1 VIEW HISTORY: Anemia/weakness; COMPARISON: No relevant prior studies were available for comparison at the time of interpretation. TECHNIQUE: CHEST, 1 VIEW FINDINGS: Chest: Lines and tubes: Left-sided implanted port with catheter tip in satisfactory position Mediastinum: Cardiomegaly. Pulmonary vessels: There is pulmonary vascular congestion. Lung rascon: Patchy opacities are seen Pleura: No effusion. No pneumothorax. Bones and soft tissues: No acute osseous or soft tissue abnormality. IMPRESSION: 1. Findings suggest heart failure THIS IS AN ELECTRONICALLY VERIFIED FINAL REPORT 02/09/2025 2:48 PM - Electronically signed by Abdullahi Sneed MD
[2025-02-10 03:20] LABS: MEAN PLATELET VOLUME 7.8 fL (7.4-11.0); RED CELL DISTRIBUTION WIDTH 20.6 % (11.6-16.5)
[2025-02-10 03:25] LABS: COR CA(FOR HYPOALB) 8.6 mg/dL (8.5-10.1); CREATININE 0.58 mg/dL (0.70-1.30); eGFR NON BLACK RACES > 60 (>60)
[2025-02-10 03:40] LABS: BAND NEUTROPHILS % 5 % (0-10); METAMYELOCYTES % 1; PLATELET MORPHOLOGY COMMENT NORMAL (NORMAL)
[2025-02-12 06:00] LABS: MEAN PLATELET VOLUME 7.6 fL (7.4-11.0); RED CELL DISTRIBUTION WIDTH 20.6 % (11.6-16.5)
[2025-02-12 06:05] LABS: COR CA(FOR HYPOALB) 9.2 mg/dL (8.5-10.1); CREATININE 0.65 mg/dL (0.70-1.30); eGFR NON BLACK RACES > 60 (>60)
[2025-02-12 06:43] LABS: PLATELET MORPHOLOGY COMMENT NORMAL (NORMAL)
[2025-02-12] MEDS: MAGNESIUM SULFATE 1 GRAM/100 mL PREMIX 1 G/100 ML BAG IV SCH (09:16)
[2025-02-12] MEDS: CYTOTEC PO SCH (10:08)
[2025-02-12] MEDS: DECADRON TAB PO SCH (10:09)
[2025-02-13 07:02] LABS: MEAN PLATELET VOLUME 7.8 fL (7.4-11.0); RED CELL DISTRIBUTION WIDTH 20.0 % (11.6-16.5)
[2025-02-13 08:30] LABS: PLATELET MORPHOLOGY COMMENT NORMAL (NORMAL)
[2025-02-14 06:34] LABS: MEAN PLATELET VOLUME 7.7 fL (7.4-11.0); RED CELL DISTRIBUTION WIDTH 20.1 % (11.6-16.5)
[2025-02-14 08:19] LABS: PLATELET MORPHOLOGY COMMENT NORMAL (NORMAL)
[2025-02-15 06:06] LABS: MEAN PLATELET VOLUME 7.9 fL (7.4-11.0); RED CELL DISTRIBUTION WIDTH 19.7 % (11.6-16.5)
[2025-02-15 06:23] LABS: PLATELET MORPHOLOGY COMMENT NORMAL (NORMAL)
[2025-02-15 06:24] LABS: COR CA(FOR HYPOALB) 9.0 mg/dL (8.5-10.1); CREATININE 0.54 mg/dL (0.70-1.30); eGFR NON BLACK RACES > 60 (>60)
[2025-02-16 06:16] LABS: MEAN PLATELET VOLUME 7.5 fL (7.4-11.0); RED CELL DISTRIBUTION WIDTH 21.0 % (11.6-16.5)
[2025-02-16 06:24] LABS: COR CA(FOR HYPOALB) 9.1 mg/dL (8.5-10.1); CREATININE 0.53 mg/dL (0.70-1.30); eGFR NON BLACK RACES > 60 (>60)
[2025-02-16 06:48] LABS: BAND NEUTROPHILS % 2 % (0-10); PLATELET MORPHOLOGY COMMENT NORMAL (NORMAL)
[2025-02-17 05:50] LABS: MEAN PLATELET VOLUME 7.3 fL (7.4-11.0); RED CELL DISTRIBUTION WIDTH 20.0 % (11.6-16.5)
[2025-02-17 06:08] LABS: COR CA(FOR HYPOALB) 9.1 mg/dL (8.5-10.1); CREATININE 0.54 mg/dL (0.70-1.30); eGFR NON BLACK RACES > 60 (>60)
[2025-02-17 06:27] LABS: BAND NEUTROPHILS % 1 % (0-10); PLATELET MORPHOLOGY COMMENT NORMAL (NORMAL)
[2025-02-19 06:06] LABS: MEAN PLATELET VOLUME 7.6 fL (7.4-11.0); RED CELL DISTRIBUTION WIDTH 20.1 % (11.6-16.5)
[2025-02-19 06:47] LABS: PLATELET MORPHOLOGY COMMENT NORMAL (NORMAL)
[2025-02-20 07:14] LABS: MEAN PLATELET VOLUME 6.9 fL (7.4-11.0); RED CELL DISTRIBUTION WIDTH 20.5 % (11.6-16.5)
[2025-02-20 07:35] LABS: COR CA(FOR HYPOALB) 9.0 mg/dL (8.5-10.1); CREATININE 0.45 mg/dL (0.70-1.30); eGFR NON BLACK RACES > 60 (>60)
[2025-02-20 08:16] LABS: PLATELET MORPHOLOGY COMMENT NORMAL (NORMAL)
[2025-02-21 07:32] LABS: MEAN PLATELET VOLUME 7.2 fL (7.4-11.0); RED CELL DISTRIBUTION WIDTH 20.6 % (11.6-16.5)
[2025-02-21 07:37] LABS: CREATININE 0.61 mg/dL (0.70-1.30); eGFR NON BLACK RACES > 60 (>60)
[2025-02-21 07:58] LABS: COR CA(FOR HYPOALB) 9.2 mg/dL (8.5-10.1)
[2025-02-21 09:13] LABS: PLATELET MORPHOLOGY COMMENT NORMAL (NORMAL)
[2025-02-21] MEDS: NS 500 ML IV 500 ML IV ONE ×2 (10:13→20:08)
[2025-02-22 05:45] LABS: MEAN PLATELET VOLUME 7.1 fL (7.4-11.0); RED CELL DISTRIBUTION WIDTH 19.5 % (11.6-16.5)
[2025-02-22 05:50] LABS: CREATININE 0.45 mg/dL (0.70-1.30); eGFR NON BLACK RACES > 60 (>60)
[2025-02-22 06:12] LABS: COR CA(FOR HYPOALB) 9.0 mg/dL (8.5-10.1)
[2025-02-22 06:30] LABS: PLATELET MORPHOLOGY COMMENT NORMAL (NORMAL)
[2025-02-22 07:50] VITALS: BP 138/73; PULSE 63; RESP 16; TEMP 97.3; O2SAT 97
== END 2025-02-22 11:15 | DRG 812 ==
LOC: MED/SURG 14:45
PROVIDERS: ADMIT Obstetrics & Gynecology Obstetrics; ATTEND Obstetrics & Gynecology Obstetrics
DX: E11.65 Type 2 diabetes mellitus with hyperglycemia; Z79.899 Other long term (current) drug therapy; E83.42 Hypomagnesemia; D46.Z Other myelodysplastic syndromes; R26.81 Unsteadiness on feet; E03.8 Other specified hypothyroidism; E78.5 Hyperlipidemia, unspecified; L89.159 Pressure ulcer of sacral region, unspecified stage; D69.6 Thrombocytopenia, unspecified; Z51.89 Encounter for other specified aftercare; K21.9 Gastro-esophageal reflux disease without esophagitis; R79.89 Other specified abnormal findings of blood chemistry; R53.1 Weakness; I10 Essential (primary) hypertension; Z66 Do not resuscitate; E83.51 Hypocalcemia